=== PATIENT | male | born 1970 | race Caucasian/White ===

== ENCOUNTER → 2022-03-20 10:07 | Outpatient (BNVA) | payer SELFPAY | PROVIDERS: PCP Family Medicine; Visit Provider Family Medicine | DX: N20.0 Calculus of kidney (principal) | CPT/HCPCS: 74018 ==

== ENCOUNTER 2022-03-20 12:25 | Emergency (ER) | payer SELFPAY ==
[2022-03-20 13:11] VITALS: BP 175/95; PULSE 98; RESP 18; TEMP 36.4; O2SAT 97
[2022-03-20 14:49] LABS: Basophils # 0.1 10^3/uL (0.0-0.1); Basophils % 0.4 %; Eosinophils # 0.1 10^3/uL (0.0-0.8); Eosinophils % 0.8 %; Hematocrit 47.9 % (42.0-52.0); Lymphocytes # 1.1 10^3/uL (0.8-4.8); Mean Corpuscular HGB Conc 33.4 g/dL (30.0-36.0); Mean Corpuscular Volume 89.7 fl (80-94); Mean Platelet Volume 10.8 fL (7.4-10.4); Monocytes # 1.1 10^3/uL (0.2-0.9); Monocytes % 9.9 %; Neutrophils # 8.82 10^3/uL (1.8-7.7); Neutrophils % 78.5 %; Nucleated Red Blood Cells % 0 %; Platelet Count 208 10^3/cmm (130-400); Red Blood Count 5.34 10^6/uL (4.1-5.3); Red Cell Distribution Width 12.4 % (12.1-15.1); White Blood Count 11.3 10^3/uL (4.0-10.0)
[2022-03-20 15:13] VITALS: PULSE 90; O2SAT 96
--- NOTE | 2022-03-20 15:14 | PC.NURSE ---
WHILE WITH PT IN LOBBY PT IS IN NAD.
[2022-03-20 15:15] LABS: Alanine Aminotransferase 37 U/L (0-41); Albumin Level 4.5 g/dL (3.5-5.2); Alkaline Phosphatase 67 U/L (40-130); Anion Gap 18.4 (5-19); Aspartate Amino Transferase 21 U/L (0-40); Blood Urea Nitrogen 16 mg/dL (6-20); Calcium 9.4 mg/dL (8.5-10.5); Carbon Dioxide 23 mmol/L (22-29); Chloride 98 mmol/L (98-107); Globulin 3.5 g/dL (1.3-4.6); Glomerular Filtration Rate 58.2 mL/min (90-130); Glucose 101 mg/dL (65-115); Osmolality Calculated 281 mOsm/kg (285-295); Potassium 4.4 mmol/L (3.5-5.1); Sodium 135 mmol/L (136-145); Total Bilirubin 0.9 mg/dL (0.15-1.2)
[2022-03-20 16:19] VITALS: BP 128/89; PULSE 104; O2SAT 96
--- NOTE | 2022-03-20 16:19 | PC.NURSE ---
WHILE WITH PT IN LOBBY PT IS IN NAD.
--- NOTE | 2022-03-20 18:04 | CTR_ITS ---
PROCEDURE INFORMATION: Exam: CT Abdomen And Pelvis Without Contrast Exam date and time: 03/20/2022 6:10 PM Age: 51 years old Clinical indication: Condition or disease; Kidney or ureter condition; Calculus (stone) in kidney and hydronephrosis; Additional info: Kidney stone TECHNIQUE: Imaging protocol: Computed tomography of the abdomen and pelvis without contrast. Radiation optimization: All CT scans at this facility use at least one of these dose optimization techniques: automated exposure control; mA and/or kV adjustment per patient size (includes targeted exams where dose is matched to clinical indication); or iterative reconstruction. COMPARISON: CR XR KUB [id number] 03/20/2022 11:07 AM RADIATION DOSE METRICS: Total DLP (mGy-cm): 1278.23 FINDINGS: Limitations: The absence of intravenous contrast lessens the sensitivity of this study for solid organ abnormalities. Lungs: Lung bases are clear. Liver: There is no focal abnormality within the liver. Gallbladder and bile ducts: Multiple calcified gallstones are present. Pancreas: The pancreas is normal. Spleen: The spleen is normal. Adrenal glands: The adrenal glands are normal. Kidneys and ureters: The right kidney is normal. There is no evidence of right hydronephrosis. There is no stone in the right ureter. There is moderate left hydronephrosis. There is a large mass arising from the lower pole of the left kidney not fully characterized without IV contrast. This mass measures 6.8 x 5.0 x 6.5 cm and is worrisome for renal malignancy until proven otherwise. There is an approximately 14 mm peripherally calcified stone in the left renal pelvis. This measures 500-600 Hounsfield units and corresponds with the calcification described on preceding abdominal radiograph. There is higher density within lower pole calices and left renal pelvis which could represent hemorrhage or tumor. There is mild dilatation of left ureter which is of higher than normal density, likely representing hemorrhage. There is no stone in the left ureter. Stomach and bowel: There is no evidence of colitis/diverticulitis. There is no evidence of intestinal obstruction. Appendix: A normal appendix is identified. Intraperitoneal space: There is no evidence of free intraperitoneal fluid. Vasculature: There is no evidence of an abdominal aortic aneurysm. Lymph nodes: There is no evidence of lymphadenopathy. Urinary bladder: There is a Kowalski catheter within the urinary bladder. There is higher density material in the posterior aspect of the drained urinary bladder worrisome for hemorrhage. Reproductive: Unremarkable as visualized. Bones/joints: The lumbar spine demonstrates moderate degenerative changes at multiple levels. Soft tissues: There is small left inguinal hernia containing only fat. There is a large umbilical or periumbilical hernia containing fat. CT/CT abdomen pelvis wo con [id number] IMPRESSION: 1. Left renal mass worrisome for malignancy. 2. Left kidney stone 3. Findings worrisome for hematuria. 4. Cholelithiasis COMMENTS: Consistent with the [employer]'s Incidental Findings Committee white paper (J Am León Radiol 2018): Any incidental renal lesion less than 1 cm or classified as too small to characterize, or any incidental cystic renal lesion characterized as simple-appearing, is likely benign. No follow-up imaging is recommended for these lesions per consensus recommendations based on imaging criteria.
[2022-03-20 19:00] VITALS: BP 118/80; PULSE 68; RESP 16; O2SAT 94
--- NOTE | 2022-03-20 19:24 | ED_ITS ---
HPI - Male Genitourinary General: Chief complaint: Urogenital-Male Stated complaint: Dr in clinic for kidney stones Time Seen by Provider: 03/20/22 18:01 Source: patient Mode of arrival: ambulatory Limitations: no limitations History of Present Illness: 51-year-old male who states he was seen last week at [facility] informed that he had a kidney stone he had hematuria had a Kowalski placed he is he is followed up with his PCP today who had sent him up here as he is concerned of the size of the stone he states he had minimal pain he has been having some hematuria but denies passing any clots denies having his Kowalski clogged. He denies any vomiting or diarrhea. Associated symptoms: Reports hematuria; Deny nausea or vomiting Review of Systems Const: Denies: fever(s), chills, body aches or change in appetite Eyes: Denies: blurry vision or eye discomfort ENMT: Denies: throat pain or dental pain Card: Denies: chest pain Resp: Denies: dyspnea GI: Denies: abdominal pain, nausea, vomiting or diarrhea : Reports: flank pain and hematuria Musc: Denies: neck pain or back pain Skin/Breast: Denies: rash Neuro: Denies: headache(s) Psych: Denies: depression Bryan/Lymph: Denies: easy bruising All/Imm: Denies: urticaria PFSH ED PFSH: Medical History (Updated 03/20/22 @ 19:29 by Alice Johnson MD) No pertinent past medical history Social History (Updated 03/20/22 @ 19:29 by Alice Johnson MD) Substance/Drug Use: never Physical Exam Const: COMMON NORMALS: no acute distress, patient oriented x3 and healthy appearing HENMT: COMMON NORMALS: normocephalic and atraumatic HEAD & SCALP: normocephalic and atraumatic Eye: COMMON NORMALS: Equal, round and reactive pupils present and EOMs intact bilaterally PUPIL: Yes Equal, round and reactive pupils present Neck/C-Spine: COMMON NORMALS: full ROM and supple Chest: COMMONS NORMALS: normal inspection of the chest and normal palpation of entire chest wall Resp: COMMON NORMALS: normal respiratory effort, No retractions, No use of accessory muscles and clear to auscultation bilaterally AUSCULTATION: clear to auscultation bilaterally Cardio: COMMON NORMALS: regular rate, regular rhythm and No murmurs present (Cardio) RATE: regular rate RHYTHM: regular rhythm GI: COMMON NORMALS: Normal to inspection, nondistended, normoactive bowel sounds present, Soft to palpation, non-tender and no masses PALPATION: Yes Soft to palpation Extremity: COMMON NORMALS: normal to inspection and full ROM Neuro: COMMON NORMALS: patient oriented x3, moves all extremities and no focal motor deficits Psych: COMMON NORMALS: mental status grossly normal, Normal thought process present and cooperative THOUGHT PROCESS: Normal thought process present Skin: COMMON NORMALS: no rashes or lesions noted and no wounds GENERAL SKIN EXAM: no rashes or lesions noted Course Vital Signs: Vital signs: Vital Signs Temperature 97.6 F 03/20/22 13:11 Pulse Rate 104 H 03/20/22 16:19 Respiratory Rate 18 03/20/22 13:11 Blood Pressure 128/89 03/20/22 16:19 Pulse Oximetry 96 03/20/22 16:19 Oxygen Delivery Me thod 03/20/22 15:13 MDM - Male Medical Decision Making Patient presents here with hematuria likely from his renal mass his kidney stone not appear to be causing any problems he is currently pain-free has a catheter has been working appropriately I did speak to Dr. White patient has an appointment with a urologist in [place] on his hemoglobin here is normal I feel he stable for discharge he is to take pain meds he is to follow-up as scheduled on we will get him a disc of the CT scan done today. He is return if worsening. Lab Data 03/20/22 14:35 03/20/22 14:35 Radiology Impressions Abdomen/Pelvis CT 03/20/22 18:04 IMPRESSION: 1. Left renal mass worrisome for malignancy. 2. Left kidney stone 3. Findings worrisome for hematuria. 4. Cholelithiasis COMMENTS: Consistent with the [employer] [place]'s Incidental Findings Committee white paper (J Am León Radiol 2018): Any incidental renal lesion less than 1 cm or classified as too small to characterize, or any incidental cystic renal lesion characterized as simple-appearing, is likely benign. No follow-up imaging is recommended for these lesions per consensus recommendations based on imaging criteria. ADDENDUM: 03/20/22 [id number] Addendum: THIS REPORT CONTAINS FINDINGS THAT MAY BE CRITICAL TO PATIENT CARE. The findings were verbally communicated via telephone conference with ALICE JOHNSON at 6:44 PM [employer]ANSFORMER [employer] on 03/20/2022. The findings were acknowledged and understood. Laboratory Results WBC 11.3 10^3/uL (4.0-10.0) H 03/20/22 14:35 RBC 5.34 10^6/uL (4.1-5.3) H 03/20/22 14:35 Hgb 16.0 g/dL (11.7-16.6) 03/20/22 14:35 Hct 47.9 % (42.0-52.0) 03/20/22 14:35 MCV 89.7 fl (80-94) 03/20/22 14:35 MCH 30.0 pg (28.0-34.0) 03/20/22 14:35 MCHC 33.4 g/dL (30.0-36.0) 03/20/22 14:35 RDW 12.4 % (12.1-15.1) 03/20/22 14:35 Plt Count 208 10^3/cmm (130-400) 03/20/22 14:35 MPV 10.8 fL (7.4-10.4) H 03/20/22 14:35 Neut % (Auto) 78.5 % 03/20/22 14:35 Lymph % (Auto) 10.0 % 03/20/22 14:35 Rolette % (Auto) 9.9 % 03/20/22 14:35 Eos % (Auto) 0.8 % 03/20/22 14:35 Baso % (Auto) 0.4 % 03/20/22 14:35 Neut # (Auto) 8.82 10^3/uL (1.8-7.7) H 03/20/22 14:35 Lymph # (Auto) 1.1 10^3/uL (0.8-4.8) 03/20/22 14:35 Rolette # (Auto) 1.1 10^3/uL (0.2-0.9) H 03/20/22 14:35 Eos # (Auto) 0.1 10^3/uL (0.0-0.8) 03/20/22 14:35 Baso # (Auto) 0.1 10^3/uL (0.0-0.1) 03/20/22 14:35 Nucleated RBC % (auto) 0 % 03/20/22 14:35 Nucleated RBCs # 0.0 /100WBC 03/20/22 14:35 Sodium 135 mmol/L (136-145) L 03/20/22 14:35 Potassium 4.4 mmol/L (3.5-5.1) 03/20/22 14:35 Chloride 98 mmol/L (98-107) 03/20/22 14:35 Carbon Dioxide 23 mmol/L (22-29) 03/20/22 14:35 Anion Gap 18.4 (5-19) 03/20/22 14:35 BUN 16 mg/dL (6-20) 03/20/22 14:35 Creatinine 1.3 mg/dL (0.7-1.2) H 03/20/22 14:35 GFR Calculation 58.2 mL/min (90-130) L 03/20/22 14:35 Glucose 101 mg/dL (65-115) 03/20/22 14:35 Calculated Osmolality 281 mOsm/kg (285-295) L 03/20/22 14:35 Calcium 9.4 mg/dL (8.5-10.5) 03/20/22 14:35 Total Bilirubin 0.9 mg/dL (0.15-1.2) 03/20/22 14:35 AST 21 U/L (0-40) 03/20/22 14:35 ALT 37 U/L (0-41) 03/20/22 14:35 Alkaline Phosphatase 67 U/L (40-130) 03/20/22 14:35 Total Protein 8.0 g/dL (6.6-8.7) 03/20/22 14:35 Albumin 4.5 g/dL (3.5-5.2) 03/20/22 14:35 Globulin 3.5 g/dL (1.3-4.6) 03/20/22 14:35 Discharge Plan Discharge Patient Disposition: Home Clinical Impression: Hematuria, Kidney stone Condition: Stable Prescriptions: No Action ciprofloxacin HCl 500 mg tablet PO oxycodone-acetaminophen 5-325 mg tablet 1 tab PO Q4H PRN (Reason: pain) 5 Days Qty: 30 0RF ondansetron 4 mg tablet,disintegrating 4 mg PO TID PRN (Reason: nausea and vomiting) 5 Days Qty: 15 0RF Discharge Orders: Discharge ED (Routine); Ordered 03/20/22 Ordered By: Alice Johnson Referrals: Edison Campbell MD [Primary Care Provider] - Discharge Diet: Advance as tolerated Discharge Activity: Resume usual activity Patient Instructions: Kidney Stones (ED), Hematuria (ED) Coding Level of Care Code ED Technical Proposal Writer for Brent Mendez
[2022-03-20 19:42] VITALS: RESP 18
[2022-03-20] MEDS: ondansetron 2 mg/ML SDV 2 mL 4 MG IM (19:42)
[2022-03-20] MEDS: HYDROmorphone 1 mg/mL INJ 1 mL IM (19:42)
[2022-03-20] MEDS: HYDROcodone-acetaminophen 5-325 mg Tablet 2 TAB PO (19:43)
[2022-03-20 19:50] LABS: Blood Urine 3+ (Negative); Glucose Urine UA Norm (Normal); Ketones Urine 1+ (Negative); Protein Urine 2+ (Negative); Urine Appearance Hazy (CLEAR); Urine Color Red (Yellow); pH Urine 6.5 (5-7)
[2022-03-20 19:51] LABS: Add Urine Culture? No; Add Urine Microscopic? YES; Bacteria Urine TRACE /hpf; Bilirubin Urine Neg (Negative); Leukocyte Esterase Urine Negative (Negative); Nitrate Urine Negative (Negative); RBC Urine TOO NUMEROUS TO CNT /hpf (0-2); Urobilinogen Urine 1 mg/dL (Negative); WBC Urine 0-4 /hpf (0-5)
[2022-03-20 19:58] VITALS: BP 113/89; PULSE 60; RESP 16; O2SAT 94
== END 2022-03-20 19:58 | disposition home or self-care (01) ==
PROVIDERS: Emergency Medicine; Emergency Provider Emergency Medicine; PCP Family Medicine
DX: R31.9 Hematuria, unspecified (principal); N20.0 Calculus of kidney
CPT/HCPCS: 36415; 74176; 80053; 81001; 85025; 96372; 99285; J1170; J2405

== ENCOUNTER 2024-09-11 10:37 | Oncology outpatient (recurring) (ONCR) | payer OTHER, SELFPAY ==
[2024-09-11 11:50] LABS: Basophils # 0.1 10^3/uL (0.0-0.1); Basophils % 0.7 %; Eosinophils # 0.3 10^3/uL (0.0-0.8); Eosinophils % 2.9 %; Hematocrit 45.9 % (37-53); Lymphocytes # 1.3 10^3/uL (0.8-4.8); Lymphocytes % 13.6 %; Mean Corpuscular HGB Conc 32.9 g/dL (30-55); Mean Corpuscular Volume 91.3 fl (82-101); Mean Platelet Volume 10.1 fL (7.4-10.4); Monocytes # 0.8 10^3/uL (0.2-0.9); Monocytes % 8.4 %; Neutrophils # 6.81 10^3/uL (1.8-7.7); Nucleated Red Blood Cells % 0 %; Platelet Count 314 10^3/cmm (157-399); Red Blood Count 5.03 10^6/uL (3.85-5.65); Red Cell Distribution Width 13.2 % (12.1-15.1)
[2024-09-11 12:16] LABS: Alanine Aminotransferase 21 U/L (0-41); Albumin Level 4.4 g/dL (3.5-5.2); Alkaline Phosphatase 94 U/L (40-130); Anion Gap 16.5 (5-19); Aspartate Amino Transferase 16 U/L (0-40); Blood Urea Nitrogen 17 mg/dL (6-20); Calcium 9.7 mg/dL (8.5-10.5); Carbon Dioxide 24 mmol/L (22-29); Chloride 100 mmol/L (98-107); Globulin 3.6 g/dL (1.3-4.6); Glomerular Filtration Rate 63.1 mL/min (90-130); Glucose 94 mg/dL (65-115); Lactate Dehydrogenase 272 U/L (135-225); Osmolality Calculated 283 mOsm/kg (285-295); Potassium 4.5 mmol/L (3.5-5.1); Sodium 136 mmol/L (136-145); Total Bilirubin 0.5 mg/dL (0.15-1.2)
== END 2024-09-13 23:59 | disposition home or self-care (01) ==
PROVIDERS: PCP Family Medicine; Visit Provider Internal Medicine
DX: Z78.9 Other specified health status (principal)
CPT/HCPCS: 36415; 80053; 83615; 85025

== ENCOUNTER 2024-10-08 14:36 | Oncology outpatient (recurring) (ONCR) | payer OTHER, SELFPAY ==
--- NOTE | 2024-09-24 13:36 | XR_ITS ---
WS: [id number] DEXA (DUAL ENERGY X-RAY ABSORPTIOMETRY) Bone mineral density was performed using a [employer] machine. HISTORY: RENAL CELL CARCINOMA OF L KIDNEY COMPARISON: None available. Lumbar spine BMD (L1-L4): 1.090 g/cm2 T score: -1.1 Z score: -1.6 Total hip BMD: Left: 0.984 g/cm2. T score: -0.8 Z score: -0.9 Right: 0.958 g/cm2. T score: -1.0 Z score: -1.1 10 year probability of a major osteoporotic fracture is 4.6%. XR/XR DEXA axial skeleton* [id number] IMPRESSION: OSTEOPENIA. Male patient.
== END 2024-10-13 23:59 | disposition home or self-care (01) ==
PROVIDERS: PCP Family Medicine; Visit Provider Internal Medicine
DX: Z53.9 Procedure and treatment not carried out, unspecified reason (principal)
CPT/HCPCS: 77080

== ENCOUNTER 2024-10-13 08:25 | Outpatient (CLI) | payer OTHER, SELFPAY ==
--- NOTE | 2024-10-13 08:45 | NM_ITS ---
WS: [id number] NUCLEAR MEDICINE BONE SCAN Radiopharmaceutical: 24.9 Tc-99m MDP mCi IV Injection site: Antecubital Postinjection imaging delay: 1 hr CLINICAL INFORMATION: renal call carcinoma of left kidney COMPARISON: None. FINDINGS: Bone lesions: There are no osseous lesions suspicious for metastatic disease. Soft tissue contours: Normal. Kidneys: LEFT nephrectomy Other findings: Degenerative arthritis AC joints and both knees worst in the medial joint compartment. NM/NM bone scan whole body* [id number] IMPRESSION: No evidence of osseous metastatic disease.
== END 2024-10-13 08:26 | disposition home or self-care (01) ==
LOC: RAD 08:25
PROVIDERS: PCP Family Medicine; Visit Provider Internal Medicine
DX: C64.2 Malignant neoplasm of left kidney, except renal pelvis (principal); Z98.890 Other specified postprocedural states; M19.012 Primary osteoarthritis, left shoulder; M19.011 Primary osteoarthritis, right shoulder; M17.0 Bilateral primary osteoarthritis of knee
CPT/HCPCS: 78306; A9561

== ENCOUNTER 2024-11-20 07:50 | Oncology outpatient (recurring) (ONCR) | payer OTHER, SELFPAY ==
[2024-11-20 08:28] LABS: Hematocrit 47.9 % (37-53); Hemoglobin 15.80 g/dL (11.27-16.99); Mean Corpuscular HGB Conc 33.0 g/dL (30-55); Mean Corpuscular Hemoglobin 29.4 pg (27-33); Mean Corpuscular Volume 89.0 fl (82-101); Nucleated Red Blood Cells % 0 %; Platelet Count 204 10^3/cmm (157-399); Red Blood Count 5.38 10^6/uL (3.85-5.65); White Blood Count 6.18 10^3/uL (3.29-11.43)
[2024-11-20 08:46] LABS: Alanine Aminotransferase 23 U/L (0-41); Albumin Level 4.5 g/dL (3.5-5.2); Alkaline Phosphatase 87 U/L (40-130); Anion Gap 13.8 (5-19); Aspartate Amino Transferase 16 U/L (0-40); Blood Urea Nitrogen 20 mg/dL (6-20); Calcium 9.3 mg/dL (8.5-10.5); Carbon Dioxide 24 mmol/L (22-29); Chloride 103 mmol/L (98-107); Creatinine Clr Calc Pharmacy 97.5626; Globulin 3.2 g/dL (1.3-4.6); Glucose 95 mg/dL (65-115); Osmolality Calculated 284 mOsm/kg (285-295); Potassium 4.8 mmol/L (3.5-5.1); Sodium 136 mmol/L (136-145); Total Protein 7.7 g/dL (6.6-8.7)
[2024-11-20] MEDS: pembrolizumab 400 MG in sodium chloride 0.9% 250 ML 532 MG IV (10:46)
[2024-11-20 11:22] VITALS: BP 133/79; PULSE 45; TEMP 36.2; O2SAT 96
== END 2024-11-20 23:59 | disposition home or self-care (01) ==
PROVIDERS: Nurse Practitioner; PCP Family Medicine; Visit Provider Internal Medicine
DX: Z51.12 Encounter for antineoplastic immunotherapy (principal); C64.2 Malignant neoplasm of left kidney, except renal pelvis; Z79.899 Other long term (current) drug therapy
CPT/HCPCS: 80053; 85025; 96413; A4222; J7050; J9271

== ENCOUNTER 2024-11-25 07:07 | Oncology outpatient (recurring) (ONCR) | payer OTHER, SELFPAY ==
--- NOTE | 2024-11-25 08:00 | CT_ITS ---
WS: [id number] CT CHEST, ABDOMEN AND PELVIS WITH CONTRAST HISTORY: renal cell carcinoma of left kidney TECHNIQUE: Contiguous 5 mm axial imaging performed through the chest, abdomen and pelvis with IV contrast, oral contrast has been provided. Coronal and sagittal reformats chest. Coronal and sagittal reformats through the abdomen and pelvis. All CT scans at [facility] use at least one of these dose optimization techniques: automated exposure control; mA and/or kV adjustment per patient size (includes targeted exams where dose is matched to clinical indication); or iterative reconstruction. CONTRAST: Omnipaque 350; 100 mL IV. DLP: 1645.28 mGy.cm COMPARISON: 03/20/[address]: Lungs are clear. No pulmonary nodule or pneumonia. No pericardial or pleural effusions. Mild cardiomegaly. Mild atherosclerosis aorta. Normal size pulmonary artery. No mediastinal or hilar adenopathy. No destructive bone lesions. Abdomen CT: Status post LEFT nephrectomy. Soft tissue stranding within the fat in the renal bed. Soft tissue extends posteriorly to the paraspinal muscles. There is an additional nodule which is lobulated in the LEFT renal bed measuring 2.3 x 3.2 cm. This nodule was not present on the the most recent CT from 03/20/2022. LEFT adrenal gland is not definitely visualized. There are surgical clips in the adrenal bed. RIGHT kidney is normal. No mass or obstruction. Normal liver and spleen. Contracted gallbladder with cholelithiasis. No adjacent inflammation. Normal RIGHT adrenal gland. Normal pancreas. No GI tract obstruction. No ascites. No additional lymph nodes. Postsurgical changes along the anterior abdominal wall. There is a large hernia containing fat. Orifice of the hernia is 4.[address]: No free fluid in the pelvis. No adenopathy. Minimally distended urinary bladder. Prostate gland is enlarged and heterogeneous. Fat-containing LEFT inguinal canal. No destructive bone lesions. CT/CT chest abdpel w/*[id number] IMPRESSION: 1. Status post LEFT nephrectomy. 2. Soft tissue stranding in the LEFT nephrectomy bed with soft tissue extensio n to the paraspinal soft tissues. This may all be normal postoperative changes due to the recent surgery. Anticipate serial CT evaluation for resolution. 3. Lobulated soft tissue mass in the renal bed measures 2.3 x 3.2 cm. Recurren t metastatic disease needs to be considered. No prior recent CT exams for jeramie rison. The LEFT adrenal gland is not identified. This could potentially be a re solving postoperative hematoma/seroma in the renal bed. 4. Normal RIGHT kidney. 5. Large fat-containing umbilical hernia. 6. Cholelithiasis without acute cholecystitis. 7. No metastatic disease to the lungs. 8. No ascites.
[2024-11-25] MEDS: iohexol 350 mg/mL 500 mL Btl (per mL) PO (08:27)
[2024-11-25] MEDS: iohexol 350 mg/mL 500 mL Btl (per mL) IV (08:28)
== END 2024-12-14 23:59 | disposition home or self-care (01) ==
PROVIDERS: Visit Provider Internal Medicine
DX: C64.2 Malignant neoplasm of left kidney, except renal pelvis (principal); Z90.5 Acquired absence of kidney; N28.9 Disorder of kidney and ureter, unspecified; K42.9 Umbilical hernia without obstruction or gangrene; Z90.49 Acquired absence of other specified parts of digestive tract; I51.7 Cardiomegaly; I70.0 Atherosclerosis of aorta; N40.0 Benign prostatic hyperplasia without lower urinary tract symptoms; R93.5 Abnormal findings on diagnostic imaging of other abdominal regions, including retroperitoneum
CPT/HCPCS: 71260; 74177

== ENCOUNTER 2025-01-01 08:00 | Oncology outpatient (recurring) (ONCR) | payer OTHER, SELFPAY ==
[2025-01-01 08:17] LABS: Hematocrit 47.2 % (37-53); Hemoglobin 15.50 g/dL (11.27-16.99); Mean Corpuscular HGB Conc 32.8 g/dL (30-55); Mean Corpuscular Hemoglobin 28.3 pg (27-33); Mean Corpuscular Volume 86.1 fl (82-101); Nucleated Red Blood Cells % 0 %; Platelet Count 216 10^3/cmm (157-399); Red Blood Count 5.48 10^6/uL (3.85-5.65); White Blood Count 7.72 10^3/uL (3.29-11.43)
[2025-01-01 08:45] LABS: Alanine Aminotransferase 21 U/L (0-41); Albumin Level 4.5 g/dL (3.5-5.2); Alkaline Phosphatase 88 U/L (40-130); Anion Gap 18.7 (5-19); Aspartate Amino Transferase 17 U/L (0-40); Blood Urea Nitrogen 24 mg/dL (6-20); Calcium 9.8 mg/dL (8.5-10.5); Carbon Dioxide 22 mmol/L (22-29); Chloride 103 mmol/L (98-107); Creatinine Clr Calc Pharmacy 83.4705; Globulin 3.5 g/dL (1.3-4.6); Glucose 108 mg/dL (65-115); Osmolality Calculated 293 mOsm/kg (285-295); Potassium 4.7 mmol/L (3.5-5.1); Sodium 139 mmol/L (136-145); Thyroid Stimulating Hormone 0.06 uIU/mL (0.27-4.20); Total Protein 8.0 g/dL (6.6-8.7)
[2025-01-01] MEDS: pembrolizumab 400 MG in sodium chloride 0.9% 250 ML 532 MG IV (09:58)
[2025-01-01 10:43] VITALS: BP 136/83; PULSE 46; RESP 17; TEMP 36.2; O2SAT 97
== END 2025-01-13 23:59 | disposition home or self-care (01) ==
PROVIDERS: Nurse Practitioner; Visit Provider Internal Medicine
DX: Z53.9 Procedure and treatment not carried out, unspecified reason; Z51.12 Encounter for antineoplastic immunotherapy; C64.2 Malignant neoplasm of left kidney, except renal pelvis
CPT/HCPCS: 80053; 84443; 85025; 96413; J7050; J9271

== ENCOUNTER → 2025-01-20 09:58 | Outpatient (BNVA) | payer OTHER, SELFPAY | PROVIDERS: PCP Nurse Practitioner Family; Visit Provider Internal Medicine | DX: E05.90 Thyrotoxicosis, unspecified without thyrotoxic crisis or storm (principal); C64.2 Malignant neoplasm of left kidney, except renal pelvis; E11.9 Type 2 diabetes mellitus without complications | CPT/HCPCS: 80053; 82533; 83036; 83516; 84439; 84443; 84480; 84681; 86337; 86341; 86376; 86800 ==

== ENCOUNTER 2025-02-12 07:53 | Oncology outpatient (recurring) (ONCR) | payer OTHER, SELFPAY ==
[2025-02-12 08:19] LABS: Hematocrit 41.5 % (37-53); Hemoglobin 14.30 g/dL (11.27-16.99); Mean Corpuscular HGB Conc 34.5 g/dL (30-55); Mean Corpuscular Hemoglobin 28.9 pg (27-33); Mean Corpuscular Volume 83.8 fl (82-101); Nucleated Red Blood Cells % 0 %; Platelet Count 178 10^3/cmm (157-399); Red Blood Count 4.95 10^6/uL (3.85-5.65); White Blood Count 9.30 10^3/uL (3.29-11.43)
[2025-02-12 08:35] LABS: Alanine Aminotransferase 24 U/L (0-41); Albumin Level 4.3 g/dL (3.5-5.2); Alkaline Phosphatase 106 U/L (40-130); Anion Gap 20.4 (5-19); Aspartate Amino Transferase 17 U/L (0-40); Blood Urea Nitrogen 29 mg/dL (6-20); Calcium 9.6 mg/dL (8.5-10.5); Carbon Dioxide 13 mmol/L (22-29); Chloride 106 mmol/L (98-107); Creatinine Clr Calc Pharmacy 37.2417; Globulin 3.5 g/dL (1.3-4.6); Glucose 94 mg/dL (65-115); Osmolality Calculated 288 mOsm/kg (285-295); Potassium 3.4 mmol/L (3.5-5.1); Sodium 136 mmol/L (136-145); Total Protein 7.8 g/dL (6.6-8.7)
[2025-02-12 09:26] LABS: Thyroid Stimulating Hormone 1.61 uIU/mL (0.27-4.20)
--- NOTE | 2025-02-12 16:00 | PC.NURSE ---
Patient taken to Emergency Department after office visit. Vascular access still in place.
== END 2025-02-13 23:59 | disposition home or self-care (01) ==
PROVIDERS: Internal Medicine; Nurse Practitioner; PCP Nurse Practitioner Family; Visit Provider Internal Medicine
DX: Z53.9 Procedure and treatment not carried out, unspecified reason; C64.2 Malignant neoplasm of left kidney, except renal pelvis; Z79.899 Other long term (current) drug therapy
CPT/HCPCS: 80053; 83615; 84443; 85025

== ENCOUNTER 2025-02-12 09:35 | Inpatient (IN) | payer OTHER, SELFPAY ==
--- OUTSIDE RECORDS SUMMARY | 2025-02-10 09:13 | XMS_ITS | Encounter Summary ---
Author Organization [facility] Address [address] [place] [address] Care Team Providers Care Instructional Design Consultant Name Role Phone Unavailable Primary Care Provider Unavailabl e Reason for Visit * Reason Comments syncope Encounter Details Date Type Department Care Team (Late st Contact Info) Description 02/10/2025 9:13 AM CDT - 02/10/2025 2:41 PM CDT Emergency [facility] Emergency Medicine [address] [place] [address] Tony De Paz MD [address] [place] [phone] Vasovagal syncope (Primary Dx); Hypokalemia; Acute renal failure superimposed on chronic kidney disease, unspecified acute renal failure type, unspecified CKD stage Discharge Disposition: Home or Self Care Social History Tobacco Use Types Packs/Day Years Used Date Smoking Tobacco: Former Cigarettes Smokeless Tobacco: Never Alcohol Use Standard Drinks/Week Comments Yes 1 (1 standard drink = 0.6 oz pur e alcohol) rare Food Insecurity Answer Date Recorded Do you find you are eating l ess than you should because you can t pay for food? No 02/10/2025 Transportation Needs Answer Date Record ed Have you gone without health care because you didn t have a way to get there? Or worry about transportation for future doctor visits, coal picker medication, etc.? No 2024 Housing Stability Answer Date Recorded Do you worry you won t have a steady place to sleep or struggle to pay rent or mortgage? No 02/10/2025 Utility Needs Answer Date Recorded Do you have difficulty payin g for utility costs (electric, water or gas bills)? No 02/10/2025 Medication Needs Answer Date Recorded Have you skipped taking medi cation due to cost or worry you can t afford new medications? No 02/10/2025 Feeling Safe Answer Date Recorded Are you in a relationship wi th someone who hurts you emotionally and/or physically? 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 Gender Identity Not on file Sexual Orientation Not on file documented as of this encounter Last Filed Vital Signs Vital Sign Reading Time Taken Comments Blood Pressure 109/71 02/10/2025 2:00 PM CDT Pulse 69 02/10/2025 2:00 PM CDT Temperature 37.1 C (98.7 F) 02/10/2025 9:13 AM CDT Respiratory Rate 12 02/10/2025 2:00 PM CDT Oxygen Saturation 99% 02/10/2025 2:00 PM CDT Inhaled Oxygen Concentration - - Weight 114.1 kg (251 lb 9.6 oz) 02/10/2025 9:13 AM CDT Height 185.4 cm (6' 1 ) 02/10/2025 9:13 AM CDT Body Mass Index 33.19 02/10/2025 9:13 AM CDT documented in this encounter Discharge Instructions * Attachments The following attachments cannot be sent through Care Everywhere. * Hypokalemia (Malagasy) * Renal Disease: Chronic (Malagasy) * Acute Kidney Injury (Malagasy) * Vasovagal Syncope (Malagasy) documented in this encounter Medications at Time of Discharge potassium CHLORIDE (KLOR-CON) 10 mEq Extended Release tablet Take 1 Tablet (10 mEq) by mouth daily. 30 Tablet ondansetron (ZOFRAN) 8 mg Tablet take 1 tablet by mouth every 6 hours as needed for nausea and vomiting 5 prochlorperazine maleate (COMPAZINE) 10 mg tablet TAKE 1 TABLET BY MOUTH every 6 HOURS Needed FOR nausea AND vomiting; MAY alternate WITH ondanestron FOR nausea OR MAY TAKE alone.] 5 famotidine (PEPCID) 40 mg tabletIndications:Hia aury hernia with gastroesophageal reflux Take 1 Tablet (40 mg) by mouth 2 times daily. 60 Tablet 5 HYDROcodone-acetamino phen (NORCO) 7.5-325 mg TabletIndications:Lef t renal mass Take 1 Tablet by mouth every 6 hours as needed for Pain, Moderate. Max Daily Amount: 4 Tablets 15 Tablet 5 docusate sodium (COLACE) 100 mg capsule Take 1 Capsule (100 mg) by mouth 2 times daily as needed for Constipation. 30 Capsule 1 5 acetaminophen (TYLENOL) 325 mg tablet Take 325 mg by mouth. ibuprofen (MOTRIN) 800 mg tablet Take 800 mg by mouth every 6 hours as needed for Pain, Mild. omeprazole (PriLOSEC) 40 mg Capsule, Delayed Release(E.C.)Indicati ons:Hiatal hernia Take 1 Capsule (40 mg) by mouth daily. 100 Capsule 3 5 ondansetron (ZOFRAN ODT) 4 mg Tablet, Rapid Dissolve Place 1 Tablet (4 mg) under tongue every 6 hours as needed for Nausea/Emesis. Dissolve tablet on top of tongue, then swallow with saliva. 10 Tablet 2 documented as of this encounter ED Notes * Tomi Damon RN - 02/10/2025 9:19 AM CDT Pt reports to the ed with co 2 syncopal episodes. Pt reports that he was on the toilet when he passed out and fell forward. Pt reports hitting his head and has reddening on his forehead. Pt denies pain on the forehead. Pt also reports having upper back pain. Pt reports LOC and denies the use of blood thinners. Pt is a/o x4 with even and unlabored breathing. Pt denies any CP,SOB, or ABD pain at this time. * Tony De Paz MD - 02/10/2025 9:06 AM CDT HISTORY OF PRESENT ILLNESS The patient is a 54-year-old male who was on the toilet today and had a syncopal episode. He has had this before he said it was when he was in the hospital in [place] back in August when he had a nephrectomy for renal cell carcinoma. He comes in today for further evaluation and treatment. He said when he fell off the stool he bumped his head on the right frontal region but has no lacerations andno bleeding. He does have a little bit of nausea. 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 used: No Arrived by: Private vehicle Arrived from: Home syncope Episode history: Single Most recent episode: Today Duration: 10 seconds Timing: Rare Progression: Resolved Chronicity: New Context: bowel movement and sitting down Witnessed: yes Relieved by: Sitting up Worsened by: Posture Ineffective treatments: None tried Associated symptoms: nausea Nausea: Severity: Mild Onset quality: Sudden Duration: 1 hour Timing: Constant Progression: Improving PAST MEDICAL HISTORY REVIEWED MEDICAL: Patient has a past medical history of Broken bones, Kidney calculus, Patient denies medical problems, and Patient denies relevant medical history. SURGICAL: Patient has a past surgical history that includes knee surgery; thumb arthroscopy; pr cysto/ureterow/lithotripsy &indwell stent insrt (Left, 03/28/2022); pr cysto/uretero w/lithotripsy &indwell stent insrt (Left, 04/01/2022); pr cystourethroscopy w/rmvl ureteral calculus (Left, 04/01/2022); pr cysto w/insert ureteral stent (Left, 07/01/2024); cystoscopy w/ ureteroscopy (07/01/2024); surgical other; and pr laparoscopy radical nephrectomy (Left, 08/25/2024). ALLERGIES Patient has no known allergies. PHYSICAL EXAM INITIAL VS BP: (!) 124/97 (02/10/25 09), Heart Rate: 78 bpm (02/10/25912), Resp: 14 (02/10/25912), Pulse: 79 (10924), Temp: 98.7 ??F (37.1 ??C) (02/10/25912), Temp src: Tympanic (02/10/25912),SpO2: 98 % (02/10/25912), Height: 6' 1 (185.4 cm) (02/10/25912), Weight: 114.1 kg (251 lb 9.6 oz) (02/10/25912), BMI (Calculated): (!) 33.19 (02/10/25912) No LMP for male patient. Physical Exam Vitals and nursing note reviewed. Constitutional: Appearance: Normal appearance. HENT: Head: Normocephalic and atraumatic. Right Ear: External ear normal. Left Ear: External ear normal. Nose: Nose normal. Mouth/Throat: Mouth: Mucous membranes are moist. Pharynx: Oropharynx is clear. Eyes: Extraocular Movements: Extraocular movements intact. Pupils: Pupils are equal, round, and reactive to light. Cardiovascular: Rate and Rhythm: Normal rate and regular rhythm. Pulmonary: Effort: Pulmonary effort is normal. No respiratory distress. Breath sounds: Normal breath sounds. Abdominal: General: Bowel sounds are normal. Palpations: Abdomen is soft. Musculoskeletal: General: Normal range of motion. Cervical back: Normal range of motion and neck supple. No rigidity or tenderness. Skin: General: Skin is warm and dry. Neurological: General: No focal deficit present. Mental Status: He is alert and oriented to person, place, and time. Mental status is at baseline. Psychiatric: Mood and Affect: Mood normal. Behavior: Behavior normal. Thought Content: Thought content normal. Judgment: Judgment normal. DIAGNOSTICS LAB: CBC WITH DIFFERENTIAL - Abnormal Result Value WBC 10.5 (*) RBC 5.17 HEMOGLOBIN 15.2 HEMATOCRIT 41.9 MCV 81.0 MCH 29.4 MCHC 36.3 RDW 13.6 RDW-STDEV 39.4 PLATELETS 183 MPV 10.8 NEUTROPHILS 67 LYMPHOCYTES 15 (*) MONOCYTES 13 (*) EOSINOPHILS 4 BASOPHILS 1 IMMATURE GRANULOCYTES 0 NEUTROPHIL ABSOLUTE 7.02 (*) LYMPHOCYTE ABSOLUTE 1.60 MONOCYTE ABSOLUTE 1.32 (*) EOSINOPHIL ABSOLUTE 0.43 BASOPHILS ABSOLUTE 0.08 IMMATURE GRANULOCYTES ABSOLUTE 0.04 COMPREHENSIVE METABOLIC PANEL - Abnormal SODIUM 135 (*) POTASSIUM 3.2 (*) CHLORIDE 109 (*) CO2 14 (*) CALCIUM 9.9 BUN 36 (*) CREATININE 3.30 (*) GLUCOSE 107 (*) TOTAL PROTEIN 8.3 ALBUMIN 4.5 BILIRUBIN TOTAL 0.6 ALKALINE PHOSPHATASE 101 AST 23 ALT 39 GFR 21 (*) ANION GAP 12 URINALYSIS WITH REFLEX MICROSCOPIC - Abnormal COLOR UA Yellow CLARITY UA Clear SPECIFIC GRAVITY UA 1.015 PH UA 7.0 LEUKOCYTE ESTERASE UA Negative NITRITE UA Negative PROTEIN UA 2+ (*) GLUCOSE UA Negative KETONES UA Negative UROBILINOGEN UA 0.2 BILIRUBIN UA Negative BLOOD UA Trace (*) BASIC METABOLIC PANEL - Abnormal SODIUM 136 POTASSIUM 3.6 CHLORIDE 111 (*) CO2 15 (*) CALCIUM 9.2 BUN 34 (*) CREATININE 2.99 (*) GLUCOSE 92 GFR 24 (*) ANION GAP 10 MAGNESIUM LEVEL - Normal MAGNESIUM 2.2 URINALYSIS MICROSCOPY ONLY - Normal WBC UA 0-2 RBC UA 0-2 BACTERIA UA Negative EPITHELIAL CELLS, URINE 0-5 HYALINE CAST 0-2 RADIOLOGY: CT HEAD WO CONTRAST Radiologist Impression IMPRESSION: No evidence of an acute intracranial process. EKG: PROCEDURES Procedures MEDICAL DECISION MAKING AND PLAN OF CARE Medical Decision Making Amount and/or Complexity of Data Reviewed Labs: ordered. Radiology: ordered. Risk Prescription drug management. Clinical Scoring & Consults Medications Administered During the ED Stay from 02/10/2025 0906 to 02/10/2025 1436 Date/Time Order Dose Route Action 02/10/2025 1040 CDT sodium chloride 0.9 % bolus solution 1,000 mL 0 mL IV Stopped 02/10/2025 0940 CDT sodium chloride 0.9 % bolus solution 1,000 mL 1,000 mL IV New Bag 02/10/2025 1011 CDT potassium CHLORIDE (K-DUR,KLOR-CON M20) SR tablet 20 mEq 20 mEq Oral Given 02/10/2025 1117 CDT potassium CHLORIDE 10 mEq in lactated ringers 1,000 mL infusion -- IV New Bag . New Prescriptions for this Encounter POTASSIUM CHLORIDE (KLOR-CON) 10 MEQ EXTENDED RELEASE TABLET Take 1 Tablet (10 mEq) by mouth daily. LAST VS BP: 109/71 (02/10/25 1400), Heart Rate: 71 bpm (02/10/25 1400), Resp: 12 (02/10/25 1400), Pulse: 69(02/10/25 1400), Temp: 98.7 ??F (37.1 ??C) (02/10/25 09), Temp src: Tympanic (02/10/25912), SpO2: 99 % (02/10/25 1400) CLINICAL IMPRESSION Diagnoses Diagnosis Comment Added By Time Added Vasovagal syncope [R55] Tony De Paz MD 02/10/2025 10:30 AM Hypokalemia [E87.6] Tony De Paz MD 02/10/2025 10:30 AM Acute renal failure superimposed on chronic kidney disease, unspecified acute renal failure type, unspecified CKD stage [N17.9, N18.9] Tony De Paz MD 02/10/2025 10:33 AM DISPOSITION, EDUCATION AND MEDICATION RECONCILIATION Medications reconciled. See after visit summary for patient education on discharged patients. 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 [address] documented as of this encounter Procedures Procedure Name Priority Date/Time Associated Diagnosis Comments BASIC METABOLIC PANEL Stat 02/10/2025 2:10 PM CDT URINALYSIS MICROSCOPY ONLY Stat 02/10/2025 1:54 PM CDT URINALYSIS W/REFLEX MICROSCOPIC Stat 02/10/2025 1:[address] HEAD WO CONTRAST Stat 02/10/2025 9 :57 AM CDT CBC WITH DIFFERENTIAL Stat 02/10/2025 9:34 AM CDT MAGNESIUM LEVEL Stat 02/10/2025 9:34 AM CDT COMPREHENSIVE METABOLIC PANEL Stat 02/10/2025 9:34 AM CDT documented in this encounter Results * (ABNORMAL) BASIC METABOLIC PANEL (02/10/2025 2:10 PM CDT) SODIUM 136 136 - 145 mmol/L 02/10/2025 2:28 PM CDT [facility] POTASSIUM 3.6 3.5 - 5.1 mmol/L 02/10[facility]2025 2:[facility] 111(H) 98 - 107 mmol/L 02/10/2025 2:28 PM T [facility] CO2 15(L) 22 - 29 mmol/L 02/10/2025 2:28 PM [facility] CALCIUM 9.2 8.6 - 10.0 mg/dL 02/10/2025 2:28 PM [facility] BUN 34(H) 6 - 20 mg/dL 02/10/2025 2:28 PM [facility] CREATININE 2.99(H) 0.67 - 1.17 mg/dL 02/10/2025 2:28 PM [facility] GLUCOSE 92 74 - 99 mg/dL 02/10/2025 2:28 PM [facility] GFR 24(L) >=60 mL/min/1.7 3 sq meter 02/10/2025 2:28 PM T [facility] Comment:eGFR calculated with 2021 CKD-EPI equation. Vegetarian diet, extremely high or low muscle mass, and may affect results. Cystatin C with Glomerular Filtration Rate is a suitable alternative for these patients. ANION GAP 10 5 - 20 mmol/L 02/10/2025 2:28 PM CDT [facility] Blood BLOOD SPECIMEN / Unknown Collection / Unknown 02/10/2025 2:10 PM CDT 02/10/2025 2:10 PM CDT us Tony De Paz MD CHEMISTRY ORDERABLES Final Result Performing Organization Address City/[facility]/ZIP Co de Phone Number [facility] CLIA # [id number] [address] [place] [phone] * URINALYSIS MICROSCOPY ONLY (02/10/2025 1:54 PM CDT) WBC UA 0-2 0 - 2 /hpf 02/10/2025 2:15 PM CDT [facility] RBC UA 0-2 0 - 2 /hpf 02/10/2025 2:15 PM CDT [facility] BACTERIA UA Negative Negative /hpf 02/10/2025 2:15 PM CDT [facility] EPITHELIAL CELLS, URINE 0-5 0 - 5 /hpf 02/10/2025 2:15 PM CDT [facility] HYALINE CAST 0-2 None Seen, 0-2 /lpf 02/10/2025 2:15 PM CDT [facility] Urine URINE SPECIMEN OBTAINED BY CLEAN CATCH PROCEDURE / Unknown Collection / Unknown 02/10/2025 1:54 PM CDT 02/10/2025 1:58 PM CDT us Tony De Paz MD URINE ORDERABLES Final Res ult Performing Organization Address City/[facility]/ZIP Co de Phone Number [facility] CLIA # [id number] [address] [place] [phone] * (ABNORMAL) URINALYSIS WITH REFLEX MICROSCOPIC (02/10/2025 1:54 PM CDT) COLOR UA Yellow Pale to Dark Yellow 02/10/2025 2:15 PM CDT [facility] CLARITY UA Clear Clear 02/10/2025 2:15 PM CDT [facility] SPECIFIC GRAVITY UA 1.015 1.003 - 1.035 02/10/2025 2:15 PM CDT [facility] PH UA 7.0 5.0 - 8.0 02/10/2025 2:15 PM CDT [facility] LEUKOCYTE ESTERASE UA Negative Negative 02/10/2025 2:15 PM CDT [facility] NITRITE UA Negative Negative 02/10/2025 2:15 PM CDT [facility] PROTEIN UA 2+(A) Negative 02/10/2025 2:15 PM CDT [facility] GLUCOSE UA Negative Negative 02/10/2025 2:15 PM CDT [facility] KETONES UA Negative Negative 02/10/2025 2:15 PM CDT [facility] UROBILINOGEN UA 0.2 <2.0 mg/dL 2:15 PM CDT [facility] BILIRUBIN UA Negative Negative 02/10/2025 2:15 PM CDT [facility] BLOOD UA Trace(A) Negative 02/10/2025 2:15 PM CDT [facility] Urine URINE SPECIMEN OBTAINED BY CLEAN CATCH PROCEDURE / Unknown Collection / Unknown 02/10/2025 1:54 PM CDT 02/10/2025 1:58 PM CDT us Tony De Paz MD URINE ORDERABLES Final Res ult [facility] CLIA # [id number] [address] [place] [id number] * CT HEAD WO CONTRAST (02/10/2025 9:57 AM CDT) Anatomical Region Laterality Modality Head Computed Tomogra phy 02/10/2025 9:34 AM CDT Impressions 02/10/2025 10:11 AM CDT IMPRESSION: No evidence of an acute intracranial process. Narrative 02/10/2025 10:11 AM CDT EXAM: CT HEAD WO CONTRAST DATE/TIME OF EXAM: 02/10/2025 9:57 AM REASON FOR STUDY: Syncope/presyncope, cerebrovascular cause suspected DIAGNOSIS: See Reason for Exam COMPARISON: None Available TECHNIQUE: CT head performed without contrast. FINDINGS: No evidence of an acute territorial infarct, parenchymal hemorrhage, hydrocephalus or abnormal extra-axial fluid collection. No midline shift. Basilar cisterns remain patent. No mastoid effusion. No paranasal sinus fluid level. No calvarial fracture. Procedure Note Everett Blount MD - 02/10/2025 EXAM: CT HEAD WO CONTRAST DATE/TIME OF EXAM: 02/10/2025 9:57 AM REASON FOR STUDY: Syncope/presyncope, cerebrovascular cause suspected DIAGNOSIS: See Reason for Exam COMPARISON: None Available TECHNIQUE: CT head performed without contrast. FINDINGS: No evidence of an acute territorial infarct, parenchymal hemorrhage, hydrocephalus or abnormal extra-axial fluid collection. No midline shift. Basilar cisterns remain patent. No mastoid effusion. No paranasal sinus fluid level. No calvarial fracture. IMPRESSION: No evidence of an acute intracranial process. Tony De Paz MD CT ORDERABLES Final Resu lt * MAGNESIUM LEVEL (02/10/2025 9:34 AM CDT) MAGNESIUM 2.2 1.6 - 2.6 mg/dL 02/10/2025 10:20 AM CDT [facility] Blood BLOOD SPECIMEN / Unknown Collection / Unknown 02/10/2025 9:34 AM CDT 02/10/2025 9:39 AM CDT Tony De Paz MD CHEMISTRY ORDERABLES Final Result [facility] CLIA # [id number] [address] [place] [phone] * (ABNORMAL) COMPREHENSIVE METABOLIC PANEL (02/10/2025 9:34 AM CDT) SODIUM 135(L) 136 - 145 mmol/L 02/10/2025 9:59 AM [facility] POTASSIUM 3.2(L) 3.5 - 5.1 mmol/L 02/10/2025 9:59 AM [facility] CHLORIDE 109(H) 98 - 107 mmol/L 02/10/2025 9:59 AM [facility] CO2 14(L) 22 - 29 mmol/L 02/10/2025 9:59 AM [facility] CALCIUM 9.9 8.6 - 10.0 mg/dL 02/10/2025 9:59 AM [facility] BUN 36(H) 6 - 20 mg/dL 02/10/2025 9:59 AM [facility] CREATININE 3.30(H) 0.67 - 1.17 mg/dL 02/10/2025 9:59 AM [facility] GLUCOSE 107(H) 74 - 99 mg/dL 02/10/2025 9:59 AM [facility] TOTAL PROTEIN 8.3 6.6 - 8.7 g/dL 02/10/2025 9:59 AM [facility] ALBUMIN 4.5 3.5 - 5.2 g/dL 02/10/2025 9:59 AM [facility] BILIRUBIN TOTAL 0.6 0.0 - 1.2 mg/dL 02/10/2025 9:59 AM [facility] ALKALINE PHOSPHATASE 101 40 - 129 U/L 02/10/2025 9:59 AM [facility] AST 23 0 - 50 U/L 02/10/2025 9:59 AM [facility] ALT 39 0 - 50 U/L 02/10/2025 9:59 AM [facility] GFR 21(L) >=60 mL/min/1.7 3 sq meter 02/10/2025 9:59 AM [facility] Comment:eGFR calculated with 2020 CKD-EPI equation. Vegetarian diet, extremely high or low muscle mass, and may affect results. Cystatin C with Glomerular Filtration Rate is a suitable alternative for these patients. ANION GAP 12 5 - 20 mmol/L 02/10/2025 9:59 AM [facility] Blood BLOOD SPECIMEN / Unknown Collection / Unknown 02/10/2025 9:34 AM CDT 02/10/2025 9:39 AM CDT Tony De Paz MD CHEMISTRY ORDERABLES Final Result [facility] CLIA # [id number] [address] [place] [phone] * (ABNORMAL) CBC WITH DIFFERENTIAL (02/10/2025 9:34 AM CDT) WBC 10.5(H) 4.2 - 9.1 K/uL 02/10/2025 9:42 AM [facility] RBC 5.17 4.63 - 6.08 M/uL 02/10/2025 9:42 AM [facility] HEMOGLOBIN 15.2 13.7 - 17.5 g/dL 02/10/2025 9:42 AM [facility] HEMATOCRIT 41.9 40.1 - 51.0 % 02/10/2025 9:42 AM [facility] MCV 81.0 79.0 - 92.2 fL 02/10/2025 9:42 AM [facility] MCH 29.4 25.7 - 32.2 pg 02/10/2025 9:42 AM [facility] MCHC 36.3 32.3 - 36.5 g/dL 02/10/2025 9:42 AM [facility] RDW 13.6 11.0 - 14.5 % 02/10/2025 9:42 AM [facility] RDW-STDEV 39.4 36.9 - 56.9 fL 02/10/2025 9:42 AM [facility] PLATELETS 183 130 - 400 K/uL 02/10/2025 9:42 AM [facility] MPV 10.8 10.0 - 14.8 fL 02/10/2025 9:42 AM T [facility] NEUTROPHILS 67 34 - 68 % 02/10/2025 9:42 AM T [facility] LYMPHOCYTES 15(L) 22 - 53 % 02/10/2025 9:42 AM [facility] MONOCYTES 13(H) 5 - 12 % 02/10/2025 9:42 AM [facility] EOSINOPHILS 4 1 - 7 % 02/10/2025 9:42 AM [facility] BASOPHILS 1 0 - 1 % 02/10/2025 9:42 AM [facility] IMMATURE GRANULOCYTES 0 % 02/10/2025 9:42 AM [facility] NEUTROPHIL ABSOLUTE 7.02(H) 1.78 - 5.38 K/uL 02/10/2025 9:42 AM [facility] LYMPHOCYTE ABSOLUTE 1.60 1.20 - 3.40 K/uL 02/10/2025 9:42 AM [facility] MONOCYTE ABSOLUTE 1.32(H) 0.30 - 0.82 K/uL 02/10/2025 9:42 AM [facility] EOSINOPHIL ABSOLUTE 0.43 0.04 - 0.54 K/uL 02/10/2025 9:42 AM [facility] BASOPHILS ABSOLUTE 0.08 0.01 - 0.08 K/uL 02/10/2025 9:42 AM [facility] IMMATURE GRANULOCYTES ABSOLUTE 0.04 K/uL 02/10/2025 9:42 AM [facility] Blood BLOOD SPECIMEN / Unknown Collection / Unknown 02/10/2025 9:34 AM CDT 02/10/2025 9:39 AM CDT Tony De Paz MD HEMATOLOGY ORDERABLES Jaylene alvarez Result [facility] CLIA # [id number] [address] [place] [id number] documented in this encounter Visit Diagnoses Diagnosis Vasovagal syncope- Primary Syncope and collapse Hypokalemia Hypopotassemia Acute renal failure superimposed on chronic kidney disease, unspecified acute renal failure type, unspecified CKD stage documented in this encounter Administered Medications Inactive Administered Medications - up to 3 most recent administrations Medication Order MAR Action Action Date Dose Rate Site potassium CHLORIDE (K-DUR,KLOR-CON M20) SR tablet 20 mEq 20 mEq, Oral, ONE TIME ONLY, 1 dose, On Sun02/10/25 at 1015, Routine Given 02/10/2025 10:11 AM CDT 20 mEq potassium CHLORIDE 10 mEq in lactated ringers 1,000 mL infusion IV, at 500 mL/hr, ONE TIME ONLY, 1 dose, On Sun02/10/25 at 1045, Routine New Bag 02/10/2025 11:17 AM CDT 500 mL/hr sodium chloride 0.9 % bolus solution 1,000 mL 1,000 mL, IV, ONE TIME ONLY, 1 dose, On Sun02/10/25 at 0945, at 999 mL/hr, Administer over 60 Minutes, Routine New Bag 02/10/2025 9:40 AM CDT 1,000 mL 999 mL/hr documented in this encounter Active and Recently Administered Medications Times are shown in CDT. Scheduled Medication Order 02/08/2025 02/09/2025 02/10/2025 potassium CHLORIDE (K-DUR,KLOR-CON M20) SR tablet 20 mEq (COMPLETED) 20 mEq, Oral, ONE TIME ONLY, 1 dose, On Sun02/10/25 at 1015, Routine 1011 (Given - Provid er: Tomi Damon RN) potassium CHLORIDE 10 mEq in lactated ringers 1,000 mL infusion (COMPLETED) IV, at 500 mL/hr, ONE TIME ONLY, 1 dose, On Sun02/10/25 at 1045, Routine 1117 (New Bag - Prov ider: Tomi Damon RN) sodium chloride 0.9 % bolus solution 1,000 mL (COMPLETED) 1,000 mL, IV, ONE TIME ONLY, 1 dose, On Sun02/10/25 at 0945, at 999 mL/hr, Administer over 60 Minutes, Routine 0940 (New Bag - Prov ider: Tomi Damon RN)1040 (Stopped - Provider: Tomi Damon RN) documented in this encounter
--- OUTSIDE RECORDS SUMMARY | 2025-02-10 09:13 | XMS_ITS | Encounter Summary ---
Author Organization [facility] Address 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 * Hypokalemia (Kenyan) * Renal Disease: Chronic (Kenyan) * Acute Kidney Injury (Kenyan) * Vasovagal Syncope ([place]yan) documented in this encounter Medications at Time [...] when he was in the hospital in [place] back in August when he had a nephrectomy for renal cell carcinoma. He comes in today for further evaluation and treatment. He said when he fell off the stool he bumped his head on the right frontal region but has no lacerations andno bleeding. He does have a little bit of nausea. 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 Office Visit [facility] Urology [address] [phone] [facility] [address] [phone] 06/24/2025 8:00 AM CDT Office Visit [facility] [address] [place] [address] Nicole Cook FNP [address] [facility] [place] [address] documented as of this encounter Procedures [...] - 145 mmol/L 02/10/2025 2:28 PM CDT [facility] POTASSIUM 3.6 3.5 - 5.1 mmol/L 02/[facility](H) 98 - 107 mmol/L 02/10/2025 2:28 PM T [facility] CO2 15(L) 22 - 29 mmol/L 02/10/2025 2:28 PM [facility] CALCIUM 9.2 8.6 - 10.0 mg/dL 02/10/2025 2:28 PM [facility] BUN 34(H) 6 - 20 mg/dL 02/10/2025 2:28 PM [facility] CREATININE 2.99(H) 0.67 - 1.17 mg/dL 02/10/2025 2:28 PM [facility] GLUCOSE 92 74 - 99 mg/dL 02/10/2025 2:28 PM [facility] GFR 24(L) >=60 mL/min/1.7 3 sq meter 02/10/2025 2:28 PM T [facility] Comment:eGFR calculated with 2021 CKD-EPI equation. Vegetarian diet, extremely high or low muscle mass, and may affect results. Cystatin C with Glomerular Filtration Rate is a suitable alternative for these patients. ANION GAP 10 5 - 20 mmol/L 02/10/2025 2:28 PM CDT [facility] Blood BLOOD SPECIMEN / Unknown Collection / Unknown 02/10/2025 2:10 PM CDT 02/10/2025 2:10 PM CDT us Tony De Paz MD CHEMISTRY ORDERABLES Final Result Performing Organization Address City/[facility]/ZIP Co de Phone Number [facility] CLIA # [id number] [address] [place] [address] * URINALYSIS MICROSCOPY ONLY (02/10/2025 1:54 PM CDT) WBC UA 0-2 0 - 2 /hpf 02/10/2025 2:15 PM CDT [facility] RBC UA 0-2 0 - 2 /hpf 02/10/2025 2:15 PM CDT [facility] BACTERIA UA Negative Negative /hpf 02/10/2025 2:15 PM CDT [facility] EPITHELIAL CELLS, URINE 0-5 0 - 5 /hpf 02/10/2025 2:15 PM CDT [facility] HYALINE CAST 0-2 None Seen, 0-2 /lpf 02/10/2025 2:15 PM CDT [facility] Urine URINE SPECIMEN OBTAINED BY CLEAN CATCH PROCEDURE / Unknown Collection / Unknown 02/10/2025 1:54 PM CDT 02/10/2025 1:58 PM CDT us Tony De Paz MD URINE ORDERABLES Final Res ult Performing Organization Address City/[facility]/ZIP Co de Phone Number [facility] CLIA # [id number] [address] [place] [address] * (ABNORMAL) URINALYSIS WITH REFLEX MICROSCOPIC (02/10/2025 1:54 PM CDT) COLOR UA Yellow Pale to Dark Yellow 02/10/2025 2:15 PM CDT [facility] CLARITY UA Clear Clear 02/10/2025 2:15 PM CDT [facility] SPECIFIC GRAVITY UA 1.015 1.003 - 1.035 02/10/2025 2:15 PM CDT [facility] PH UA 7.0 5.0 - 8.0 02/10/2025 2:15 PM CDT [facility] LEUKOCYTE ESTERASE UA Negative Negative 02/10/2025 2:15 PM CDT [facility] NITRITE UA Negative Negative 02/10/2025 2:15 PM CDT [facility] PROTEIN UA 2+(A) Negative 02/10/2025 2:15 PM CDT [facility] GLUCOSE UA Negative Negative 02/10/2025 2:15 PM CDT [facility] KETONES UA Negative Negative 02/10/2025 2:15 PM CDT [facility] UROBILINOGEN UA 0.2 <2.0 mg/dL 2:15 PM CDT [facility] BILIRUBIN UA Negative Negative 02/10/2025 2:15 PM CDT [facility] BLOOD UA Trace(A) Negative 02/10/2025 2:15 PM CDT [facility] Urine URINE SPECIMEN OBTAINED BY CLEAN CATCH PROCEDURE / Unknown Collection / Unknown 02/10/2025 1:54 PM CDT 02/10/2025 1:58 PM CDT us Tony De Paz MD URINE ORDERABLES Final Res ult [facility] CLIA # [id number] [address] [place] [address] * CT HEAD WO CONTRAST (02/10/2025 9:57 [...] - 2.6 mg/dL 02/10/2025 10:20 AM CDT [facility] Blood BLOOD SPECIMEN / Unknown Collection / Unknown 02/10/2025 9:34 AM CDT 02/10/2025 9:39 AM CDT Tony De Paz MD CHEMISTRY ORDERABLES Final Result [facility] CLIA # [id number] [address] [place] [id number] * (ABNORMAL) COMPREHENSIVE METABOLIC PANEL (02/10/2025 9:34 AM CDT) SODIUM 135(L) 136 - 145 mmol/L 02/10/2025 9:59 AM [facility] POTASSIUM 3.2(L) 3.5 - 5.1 mmol/L 02/10/2025 9:59 AM [facility] CHLORIDE 109(H) 98 - 107 mmol/L 02/10/2025 9:59 AM [facility] CO2 14(L) 22 - 29 mmol/L 02/10/2025 9:59 AM [facility] CALCIUM 9.9 8.6 - 10.0 mg/dL 02/10/2025 9:59 AM [facility] BUN 36(H) 6 - 20 mg/dL 02/10/2025 9:59 AM [facility] CREATININE 3.30(H) 0.67 - 1.17 mg/dL 02/10/2025 9:59 AM [facility] GLUCOSE 107(H) 74 - 99 mg/dL 02/10/2025 9:59 AM [facility] TOTAL PROTEIN 8.3 6.6 - 8.7 g/dL 02/10/2025 9:59 AM [facility] ALBUMIN 4.5 3.5 - 5.2 g/dL 02/10/2025 9:59 AM [facility] BILIRUBIN TOTAL 0.6 0.0 - 1.2 mg/dL 02/10/2025 9:59 AM [facility] ALKALINE PHOSPHATASE 101 40 - 129 U/L 02/10/2025 9:59 AM [facility] AST 23 0 - 50 U/L 02/10/2025 9:59 AM [facility] ALT 39 0 - 50 U/L 02/10/2025 9:59 AM [facility] GFR 21(L) >=60 mL/min/1.7 3 sq meter 02/10/2025 9:59 AM [facility] Comment:eGFR calculated with 2020 CKD-EPI equation. Vegetarian diet, extremely high or low muscle mass, and may affect results. Cystatin C with Glomerular Filtration Rate is a suitable alternative for these patients. ANION GAP 12 5 - 20 mmol/L 02/10/2025 9:59 AM [facility] Blood BLOOD SPECIMEN / Unknown Collection / Unknown 02/10/2025 9:34 AM CDT 02/10/2025 9:39 AM CDT Tony De Paz MD CHEMISTRY ORDERABLES Final Result [facility] CLIA # [id number] [address] [place] [address] * (ABNORMAL) CBC WITH DIFFERENTIAL (02/10/2025 9:34 AM CDT) WBC 10.5(H) 4.2 - 9.1 K/uL 02/10/2025 9:42 AM [facility] RBC 5.17 4.63 - 6.08 M/uL 02/10/2025 9:42 AM [facility] HEMOGLOBIN 15.2 13.7 - 17.5 g/dL 02/10/2025 9:42 AM [facility] HEMATOCRIT 41.9 40.1 - 51.0 % 02/10/2025 9:42 AM [facility] MCV 81.0 79.0 - 92.2 fL 02/10/2025 9:42 AM [facility] MCH 29.4 25.7 - 32.2 pg 02/10/2025 9:42 AM [facility] MCHC 36.3 32.3 - 36.5 g/dL 02/10/2025 9:42 AM [facility] RDW 13.6 11.0 - 14.5 % 02/10/2025 9:42 AM [facility] RDW-STDEV 39.4 36.9 - 56.9 fL 02/10/2025 9:42 AM [facility] PLATELETS 183 130 - 400 K/uL 02/10/2025 9:42 AM [facility] MPV 10.8 10.0 - 14.8 fL 02/10/2025 9:42 AM T [facility] NEUTROPHILS 67 34 - 68 % 02/10/2025 9:42 AM T [facility] LYMPHOCYTES 15(L) 22 - 53 % 02/10/2025 9:42 AM [facility] MONOCYTES 13(H) 5 - 12 % 02/10/2025 9:42 AM [facility] EOSINOPHILS 4 1 - 7 % 02/10/2025 9:42 AM [facility] BASOPHILS 1 0 - 1 % 02/10/2025 9:42 AM [facility] IMMATURE GRANULOCYTES 0 % 02/10/2025 9:42 AM [facility] NEUTROPHIL ABSOLUTE 7.02(H) 1.78 - 5.38 K/uL 02/10/2025 9:42 AM [facility] LYMPHOCYTE ABSOLUTE 1.60 1.20 - 3.40 K/uL 02/10/2025 9:42 AM [facility] MONOCYTE ABSOLUTE 1.32(H) 0.30 - 0.82 K/uL 02/10/2025 9:42 AM [facility] EOSINOPHIL ABSOLUTE 0.43 0.04 - 0.54 K/uL 02/10/2025 9:42 AM [facility] BASOPHILS ABSOLUTE 0.08 0.01 - 0.08 K/uL 02/10/2025 9:42 AM [facility] IMMATURE GRANULOCYTES ABSOLUTE 0.04 K/uL 02/10/2025 9:42 AM [facility] Blood BLOOD SPECIMEN / Unknown Collection / Unknown 02/10/2025 9:34 AM CDT 02/10/2025 9:39 AM CDT Tony De Paz MD HEMATOLOGY ORDERABLES Jaylene alvarez Result [facility] CLIA # [id number] [address] [place] [address] documented in this encounter Visit Diagnoses [...]
[2025-02-12 09:37] VITALS: BP 127/85; PULSE 85; TEMP 37.1; O2SAT 98; BMI 33.2
--- OUTSIDE RECORDS SUMMARY | 2025-02-12 10:04 | XMS_ITS | Clinical Summary ---
Author Organization [facility] Address [address] Reina: Epic Prelude ADT KLARISSA GAMA [address] Care Team Providers Care Carpentry Professional Name Role Phone Unavailable Primary Care Provider Unavailabl e Allergies No known active allergies Medications ondansetron (ZOFRAN ODT) 4 mg Tablet, Rapid Dissolve Place 1 Tablet (4 mg) under tongue every 6 hours as needed for Nausea/Emesis. Dissolve tablet on top of tongue, then swallow with saliva. 10 Tablet 03/17/20 22 Active Additional Information Patient not taking.Reported on 02/10/2025 acetaminophen (TYLENOL) 325 mg tablet Take 325 mg by mouth. Active ibuprofen (MOTRIN) 800 mg tablet Take 800 mg by mouth every 6 hours as needed for Pain, Mild. Active omeprazole (PriLOSEC) 40 mg Capsule, Delayed Release(E.C.)Indicat ions:Hiatal hernia Take 1 Capsule (40 mg) by mouth daily. 100 Capsule 3 06/25/19 25 Active HYDROcodone-acetamin ophen (NORCO) 7.5-325 mg TabletIndications:Le ft renal mass Take 1 Tablet by mouth every 6 hours as needed for Pain, Moderate. Max Daily Amount: 4 Tablets 15 Tablet 08/28/19 25 Active Additional Information Patient not taking.Reported on 02/10/2025 docusate sodium (COLACE) 100 mg capsule Take 1 Capsule (100 mg) by mouth 2 times daily as needed for Constipation. 30 Capsule 1 08/28/19 25 Active Additional Information Patient not taking.Reported on 02/10/2025 famotidine (PEPCID) 40 mg tabletIndications:Hi atal hernia with gastroesophageal reflux Take 1 Tablet (40 mg) by mouth 2 times daily. 60 Tablet 12/26/19 Active ondansetron (ZOFRAN) 8 mg Tablet take 1 tablet by mouth every 6 hours as needed for nausea and vomiting 01/17/20 25 Active prochlorperazine maleate (COMPAZINE) 10 mg tablet TAKE 1 TABLET BY MOUTH every 6 HOURS Needed FOR nausea AND vomiting; MAY alternate WITH ondanestron FOR nausea OR MAY TAKE alone.] 01/17/20 25 Active potassium CHLORIDE (KLOR-CON) 10 mEq Extended Release tablet Take 1 Tablet (10 mEq) by mouth daily. 30 Tablet 02/11/20 25 Active Active Problems Problem Noted Date Diagnosed Date Hiatal hernia with gastroesophageal reflux 12/25 Renal cell carcinoma of left kidney 12/25/2024 Umbilical hernia without obstruction or gangrene 12/25/2024 Left renal mass 08/26/2024 Encounters Date Type Department Care Team Description 02/10/2025 9:13 AM CDT - 02/10/2025 2:41 PM CDT Emergency [facility] Emergency Medicine [address] [place] [phone] Tony De Paz MD Vasovagal syncope (Primary Dx); Hypokalemia; Acute renal failure superimposed on chronic kidney disease, unspecified acute renal failure type, unspecified CKD stage Discharge Disposition: Home or Self Care 02/10/2025 Travel 02/04/2025 External Device Data ST[facility] ABSTRACTION Provider, Abstract 01/30/2025 Results Follow-Up [address] [phone] Nicole Cook FNP CBC WITH DIFFERENTIAL, COMPREHENSIVE METABOLIC PANEL 01/30/2025 Results Follow-Up [address] [phone] Nicole Cook FNP US RENAL AND BLADDER 01/29/2025 11:36 AM CDT - 01/29/2025 11:59 PM CDT Hospital Encounter [facility] [address] [place] [phone] Nicole Cook FNP Discharge Disposition: Home or Self Care 01/28/2025 12:48 PM CDT - 01/28/2025 11:59 PM CDT Hospital Encounter [facility] [place] [address] [place] [address] Nicole Cook, ROSE Malignant neoplasm of left kidney, except renal pelvis (CMS/HCC) Discharge Disposition: Home or Self Care 01/28/2025 11:20 AM CDT Office Visit [address] [facility] [address] Nicole Cook FNP Renal cell carcinoma of left kidney (CMS/HCC) (Primary Dx) 01/28/2025 Lab Requisition [facility] [place] [address] [place] [address] Nicole Cook FNP Malignant neoplasm of left kidney, except renal pelvis (CMS/HCC) 01/20/2025 External Device Data STL ABSTRACTION Provider, Abstract 01/03/2025 Results Follow-Up [address] [place] [address] Nicole Cook FNP CBC WITH DIFFERENTIAL, COMPREHENSIVE METABOLIC PANEL 01/01/2025 Medication Prior Auth Encounter [facility] Prescription Management Dept [facility] [address] Delfina Barboza, PHARMACIST 12/31/2024 External Device Data ST[facility] ABSTRACTION Provider, Abstract 12/30/2024 External Device Data ST[facility] ABSTRACTION Provider, Abstract 12/30/2024 External Device Data [facility] ABSTRACTION Provider, Abstract 12/25/2024 8:40 AM CDT Office Visit [address] [place] [address] Nicole Cook FNP Hiatal hernia with gastroesophageal reflux (Primary Dx); Renal cell carcinoma of left kidney (CMS/HCC); Umbilical hernia without obstruction or gangrene 12/16/2024 External Device Data STL ABSTRACTION Provider, Abstract 12/10/2024 External Device Data STL ABSTRACTION Provider, Abstract 12/02/2024 External Device Data STL ABSTRACTION Provider, Abstract 12/02/2024 External Device Data STL ABSTRACTION Provider, Abstract 11/19/2024 External Device Data STL ABSTRACTION Provider, Abstract from Last 3 Months Family History Medical History Relation Name Comments Healthy Father Healthy Mother Relation Name Status Comments Father Alive Mother Alive Social History Tobacco Use Types Packs/Day Years Used Date Smoking Tobacco: Former Cigarettes Smokeless Tobacco: Never Tobacco Cessation:Counseling Given: No Alcohol Use Standard Drinks/Week Comments Yes 1 [...] worry about transportation for future doctor visits, picker medication, etc.? 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 Gender Identity Not on file Sexual Orientation Not on file Last Filed Vital Signs Vital Sign Reading [...] Mass Index 33.19 02/10/2025 9:13 AM CDT Plan of Treatment Upcoming Encounters Date Type Department Care Team (Late st Contact Info) Description 04/07/2025 2:30 PM BAGGAGE HANDLING SUPERVISOR Office Visit [facility] Urology [address] [phone] Aurora Solis [address] [phone] 06/24/2025 8:00 AM CDT Office Visit [facility] Family Medicine [place] [address] [place] [address] [place] [phone] Nicole Cook FNP [address] [facility] [place] [phone] Health Maintenance Due Date Last Done Comments Pre-Diabetes and Diabetes Screening 1970 DTAP/TDAP/TD VACCINES (1 - Tdap) 1989 HEPATITIS B VACCINES (1 of 3 - 19+ 3-dose series) 1989 COLORECTAL SCREENING 2015 Colorectal Cancer Screening 2015 FIT-DNA Q 3 years 2015 FIT/FOBT Q 1 year 2015 Flex Sig/CT Colonography Q 5 years 2015 ZOSTER VACCINE (1 of 2) 2020 INFLUENZA VACCINE (#1) 2024 COVID-19 Vaccine ( - season) 12/15/202406/2020, 06/26/2020 Abdominal Aortic Aneurysm (AAA) Screening Completed 03/16/2022 Medical Devices Implanted Type [employer] Device Identifier Shelf Expiration Date Model / Serial / Lot Clip Hemolok Lrg [id number] - Csc - [id number] Implanted:Qty: 1 on 08/25/2024 by Gilberto Claros MD at [facility] Clip Left: Abdomen TELEFLEX- WECK CLOSURE SYS [id number] 04/21/2029 [id number] / / [id number] Clip Hemolok Lrg [id number] - Csc - [id number] Implanted:Qty: 1 on 08/25/2024 by Gilberto Claros MD at [facility] Clip Left: Abdomen TELEFLEX- WECK CL[employer]URE SYS [id number] 02/28/2029 [id number] / / [id number] Clip Hemolok Lrg [id number] - Csc - [id number] Implanted:Qty: 1 on 08/25/2024 by Gilberto Claros MD at [facility] Clip Left: Abdomen TELEFLEX- WECK CLOSURE SYS [id number] 04/21/2029 [id number] / / [id number] Agent Hemostat Surgicel 3x4in 1942s - [id number] Implanted:Qty: 1 on 08/25/2024 by Gilberto Claros MD at [facility] Hemostatic Left: Abdomen J[employer]J- [employer] [id number] 02/13/2029 1943S / / [id number] Hemostatic Surgicel 6x9in 1945 - [id number] Implanted:Qty: 1 on 08/25/2024 by Gilberto Claros MD at [facility] Hemostatic Left: Abdomen J&J- [employer] [id number] 02/13/2029 1946 / / [id number] Stent Contour [id number] - [id number] Implanted:Qty: 1 on 07/01/2024 by Nicolette Wynne MD at [facility] Stent Left: Bladder [employer] UROLOGY/MOBILITY ARCHITECT MANAGER [id number] 09/19/2026 [id number] / / [id number] Explanted Type [employer] Device Identifier Shelf Expiration Date Model / Serial / Lot Stent Contour [id number] - [id number] Implanted:Qty: 1 on 03/28/2022 by Nicolette Wynne MD at [facility] Explanted:Qty: 1 on 04/01/2022 by Nicolette Wynne MD at [facility] Stent Left: Ureter [employer] UROLOGY/MOBILITY ARCHITECT MANAGER [id number] 10/05/2024 [id number] / / [id number] Procedures Procedure Name Priority Date/Time Associated Diagnosis Comments BASIC METABOLIC PANEL Stat 02/10/2025 2:10 PM CDT URINALYSIS MICROSCOPY ONLY Stat 02/10/2025 1:54 PM CDT URINALYSIS W/REFLEX MICROSCOPIC Stat 02/10/2025 1:[address] HEAD WO CONTRAST Stat 02/10/2025 9 :57 AM CDT MAGNESIUM LEVEL Stat 02/10/2025 9:34 AM CDT COMPREHENSIVE METABOLIC PANEL Stat 02/10/2025 9:34 AM CDT CBC WITH DIFFERENTIAL Stat 02/10/2025 9:34 AM CDT US RENAL AND BLADDER Stat 01/29/2025 12:20 PM CDT Renal cell carcinoma of left kidney (CMS/HCC) COMPREHENSIVE METABOLIC PANEL Stat 01/28/2025 12:57 PM CDT Malignant neoplasm of left kidney, except renal pelvis (CMS/HCC) CBC WITH DIFFERENTIAL Stat 01/28/2025 12:57 PM CDT Malignant neoplasm of left kidney, except renal pelvis (CMS/HCC) COMPREHENSIVE METABOLIC PANEL Routine 12/25/2024 9:36 AM CDT Hiatal hernia with gastroesophageal reflux Renal cell carcinoma of left kidney (CMS/HCC) CBC WITH DIFFERENTIAL Routine 12/25/2024 9:36 AM CDT Hiatal hernia with gastroesophageal reflux Renal cell carcinoma of left kidney (CMS/HCC) CT ABDOMEN PELVIS WO CONTRAST Stat 03/16/2022 9:30 PM BAGGAGE HANDLING SUPERVISOR from Last 3 Months or Most Recently Relevant to Health Maintenance Results * (ABNORMAL) BASIC METABOLIC PANEL (02/10/2025 2:10 PM CDT) SODIUM 136 136 - 145 mmol/L 02/10/2025 2:28 PM [facility] POTASSIUM 3.6 3.5 - 5.1 mmol/L 02/10/2025 2:28 PM [facility] CHLORIDE 111(H) 98 - 107 mmol/L 02/10/2025 2:28 PM [facility] CO2 15(L) 22 - 29 mmol/L 02/10/2025 2:28 PM [facility] CALCIUM 9.2 8.6 - 10.0 mg/dL 02/10/2025 2:28 PM [facility] BUN 34(H) 6 - 20 mg/dL 02/10/2025 2:28 PM [facility] CREATININE 2.99(H) 0.67 - 1.17 mg/dL 02/10/2025 2:28 PM [facility] GLUCOSE 92 74 - 99 mg/dL 02/10/2025 2:28 PM [facility] GFR 24(L) >=60 mL/min/1.7 3 sq meter 02/10/2025 2:28 PM [facility] Comment:eGFR calculated with 2020 CKD-EPI equation. Vegetarian diet, extremely high or low muscle mass, and may affect results. Cystatin C with Glomerular Filtration Rate is a suitable alternative for these patients. ANION GAP 10 5 - 20 mmol/L 02/10/2025 2:28 PM [facility] Blood BLOOD SPECIMEN / Unknown Collection / Unknown 02/10/2025 2:10 PM CDT 02/10/2025 2:10 PM CDT us Tony De Paz MD CHEMISTRY ORDERABLES Final Result Performing Organization Address [facility]/ZIP Co de Phone Number [facility] CLIA # [id number] [address] [place] [phone] * URINALYSIS MICROSCOPY ONLY (02/10/2025 1:54 PM CDT) WBC UA 0-2 0 - 2 /hpf 02/10/2025 2:15 PM CDT [facility] RBC UA 0-2 0 - 2 /hpf 02/10/2025 2:15 PM CDT [facility] BACTERIA UA Negative Negative /hpf 02/10/2025 2:15 PM CDT [facility] EPITHELIAL CELLS, URINE 0-5 0 - 5 /hpf 02/10/2025 2:15 PM CDT [facility] HYALINE CAST 0-2 None Seen, 0-2 /lpf 02/10/2025 2:15 PM CDT [facility] Urine URINE SPECIMEN OBTAINED BY CLEAN CATCH PROCEDURE / Unknown Collection / Unknown 02/10/2025 1:54 PM CDT 02/10/2025 1:58 PM CDT us Tony De Paz MD URINE ORDERABLES Final Res ult Performing Organization Address City/[facility]/ZIP Co de Phone Number [facility] CLIA # [id number] [address] [place] [address] * (ABNORMAL) URINALYSIS WITH REFLEX MICROSCOPIC (02/10/2025 1:54 PM CDT) COLOR UA Yellow Pale to Dark Yellow 02/10/2025 2:15 PM CDT [facility] CLARITY UA Clear Clear 02/10/2025 2:15 PM CDT [facility] SPECIFIC GRAVITY UA 1.015 1.003 - 1.035 02/10/2025 2:15 PM CDT [facility] PH UA 7.0 5.0 - 8.0 02/10/2025 2:15 PM CDT [facility] LEUKOCYTE ESTERASE UA Negative Negative 02/10/2025 2:15 PM CDT [facility] NITRITE UA Negative Negative 02/10/2025 2:15 PM CDT [facility] PROTEIN UA 2+(A) Negative 02/10/2025 2:15 PM CDT [facility] GLUCOSE UA Negative Negative 02/10/2025 2:15 PM CDT [facility] KETONES UA Negative Negative 02/10/2025 2:15 PM CDT [facility] UROBILINOGEN UA 0.2 <2.0 mg/dL 2:15 PM CDT [facility] BILIRUBIN UA Negative Negative 02/10/2025 2:15 PM CDT [facility] BLOOD UA Trace(A) Negative 02/10/2025 2:15 PM CDT [facility] Urine URINE SPECIMEN OBTAINED BY CLEAN CATCH PROCEDURE / Unknown Collection / Unknown 02/10/2025 1:54 PM CDT 02/10/2025 1:58 PM CDT Tony De Paz MD URINE ORDERABLES Final Res ult [facility] [id number] [address] [place] [phone] * CT HEAD WO CONTRAST (02/10/2025 9:57 [...] MD CT ORDERABLES Final Resu lt * (ABNORMAL) CBC WITH DIFFERENTIAL (02/10/2025 9:34 AM CDT) Only the most recent of3 resultswithin the time period is included. WBC 10.5(H) 4.2 - 9.1 K/uL 02/10/2025 9:42 AM [facility] RBC 5.17 4.63 - 6.08 M/uL 02/10/2025 9:42 AM [facility] HEMOGLOBIN 15.2 13.7 - 17.5 g/dL 02/10/2025 9:42 AM [facility] HEMATOCRIT 41.9 40.1 - 51.0 % 02/10/2025 9:42 AM [facility] MCV 81.0 79.0 - 92.2 fL 02/10/2025 9:42 AM [facility] MCH 29.4 25.7 - 32.2 pg 02/10/2025 9:42 AM [facility] MCHC 36.3 32.3 - 36.5 g/dL 02/10/2025 9:42 AM [facility] RDW 13.6 11.0 - 14.5 % 02/10/2025 9:42 AM [facility] RDW-STDEV 39.4 36.9 - 56.9 fL 02/10/2025 9:42 AM [facility] PLATELETS 183 130 - 400 K/uL 02/10/2025 9:42 AM [facility] MPV 10.8 10.0 - 14.8 fL 02/10/2025 9:42 AM [facility] NEUTROPHILS 67 34 - 68 % 02/10/2025 9:42 AM [facility] LYMPHOCYTES 15(L) 22 - 53 % 02/10/2025 9:42 AM [facility] MONOCYTES 13(H) 5 - 12 % 02/10/2025 9:42 AM [facility] EOSINOPHILS 4 1 - 7 % 02/10/2025 9:42 AM [facility] BASOPHILS 1 0 - 1 % 02/10/2025 9:42 AM [facility] IMMATURE GRANULOCYTES 0 % 02/10/2025 9:42 AM [facility] NEUTROPHIL ABSOLUTE 7.02(H) 1.78 - 5.38 K/uL 02/10/2025 9:42 AM [facility] LYMPHOCYTE ABSOLUTE 1.60 1.20 - 3.40 K/uL 02/10/2025 9:42 AM [facility] MONOCYTE ABSOLUTE 1.32(H) 0.30 - 0.82 K/uL 02/10/2025 9:42 AM [facility] EOSINOPHIL ABSOLUTE 0.43 0.04 - 0.54 K/uL 02/10/2025 9:42 AM [facility] BASOPHILS ABSOLUTE 0.08 0.01 - 0.08 K/uL 02/10/2025 9:42 AM [facility] IMMATURE GRANULOCYTES ABSOLUTE 0.04 K/uL 02/10/2025 9:42 AM [facility] Blood BLOOD SPECIMEN / Unknown Collection / Unknown 02/10/2025 9:34 AM CDT 02/10/2025 9:39 AM CDT us Tony De Paz MD HEMATOLOGY ORDERABLES Jaylene l Result Performing Organization Address City/[facility]/ZIP Co de Phone Number [facility] CLIA # [id number] [address] [place] [phone] * MAGNESIUM LEVEL (02/10/2025 9:34 AM CDT) MAGNESIUM 2.2 1.6 - 2.6 mg/dL 02/10/2025 10:20 AM CDT [facility] Blood BLOOD SPECIMEN / Unknown Collection / Unknown 02/10/2025 9:34 AM CDT 02/10/2025 9:39 AM CDT Tony De Paz MD CHEMISTRY ORDERABLES Final Result Performing Organization Address [facility] Co de Phone Number [facility] [id number] [address] [place] [phone] * (ABNORMAL) COMPREHENSIVE METABOLIC PANEL (02/10/2025 9:34 AM CDT) Only the most recent of3 resultswithin the time period is included. SODIUM 135(L) 136 - 145 mmol/L 02/10/2025 9:59 AM [facility] POTASSIUM 3.2(L) 3.5 - 5.1 mmol/L 02/10/2025 9:59 AM [facility] CHLORIDE 109(H) 98 - 107 mmol/L 02/10/2025 9:59 AM [facility] CO2 14(L) 22 - 29 mmol/L 02/10/2025 9:59 AM [facility] CALCIUM 9.9 8.6 - 10.0 mg/dL 02/10/2025 9:59 AM [facility] BUN 36(H) 6 - 20 mg/dL 02/10/2025 9:59 AM [facility] CREATININE 3.30(H) 0.67 - 1.17 mg/dL 02/10/2025 9:59 AM [facility] GLUCOSE 107(H) 74 - 99 mg/dL 02/10/2025 9:59 AM [facility] TOTAL PROTEIN 8.3 6.6 - 8.7 g/dL 02/10/2025 9:59 AM [facility] ALBUMIN 4.5 3.5 - 5.2 g/dL 02/10/2025 9:59 AM [facility] BILIRUBIN TOTAL 0.6 0.0 - 1.2 mg/dL 02/10/2025 9:59 AM [facility] ALKALINE PHOSPHATASE 101 40 - 129 U/L 02/10/2025 9:59 AM [facility] AST 23 0 - 50 U/L 02/10/2025 9:59 AM [facility] ALT 39 0 - 50 U/L 02/10/2025 9:59 AM [facility] GFR 21(L) >=60 mL/min/1.7 3 sq meter 02/10/2025 9:59 AM [facility] Comment:eGFR calculated with 2020 CKD-EPI equation. Vegetarian diet, extremely high or low muscle mass, and may affect results. Cystatin C with Glomerular Filtration Rate is a suitable alternative for these patients. ANION GAP 12 5 - 20 mmol/L 02/10/2025 9:59 AM [facility] Blood BLOOD SPECIMEN / Unknown Collection / Unknown 02/10/2025 9:34 AM CDT 02/10/2025 9:39 AM CDT us Tony De Paz MD CHEMISTRY ORDERABLES Final Result [facility] CLIA # [id number] [address] [place] [phone] * US RENAL AND BLADDER (01/29/2025 12:20 PM CDT) Anatomical Region Laterality Modality Abdomen Ultrasound 01/29/2025 12:2 0 PM CDT Impressions 01/29/2025 12:29 PM CDT IMPRESSION: Please see below. US RENAL AND BLADDER, 01/29/2025 12:20 PM Reason For Exam: See Diagnosis. Diagnosis: Renal cell carcinoma of left kidney (CMS/HCC). COMPARISON: 07/15/2024 TECHNIQUE: Multiplanar real-time ultrasonography of the retroperitoneum and urinary tract using travis-scale imaging, supplemented by color and spectral Doppler as needed. FINDINGS: . Right kidney: The renal contour is lobulated and the echogenicity is mildly increased. No mass or hydronephrosis. Extrarenal pelvis is again noted. The overall size is mildly enlarged, likely partially compensatory in nature. The right kidney measures 16.6 cm in length. . Left kidney: Surgically absent. No mass noted in the renal bed. . Additional comments: No focal bladder wall abnormality. Postvoid bladder residual measure 70 mL. ++++++++++++++++++++ IMPRESSION: Interval left nephrectomy. Increased right renal cortical echogenicity which may reflect medical renal disease. No hydronephrosis. Narrative Procedure Note Everett Lowe MD - 01/29/2025 IMPRESSION: Please see below. US RENAL AND BLADDER, 01/29/2025 12:20 PM Reason For Exam: See Diagnosis. Diagnosis: Renal cell carcinoma of left kidney (CMS/HCC). COMPARISON: 07/15/2024 TECHNIQUE: Multiplanar real-time ultrasonography of the retroperitoneum and urinary tract using travis-scale imaging, supplemented by color and spectral Doppler as needed. FINDINGS: . Right kidney: The renal contour is lobulated and the echogenicity is mildly increased. No mass or hydronephrosis. Extrarenal pelvis is again noted. The overall size is mildly enlarged, likely partially compensatory in nature. The right kidney measures 16.6 cm in length. . Left kidney: Surgically absent. No mass noted in the renal bed. . Additional comments: No focal bladder wall abnormality. Postvoid bladder residual measure 70 mL. ++++++++++++++++++++ IMPRESSION: Interval left nephrectomy. Increased right renal cortical echogenicity which may reflect medical renal disease. No hydronephrosis. us Nicole ROSE US ORDERABLES Final Result * CT ABDOMEN PELVIS WO CONTRAST (03/16/2022 9:30 PM BAGGAGE HANDLING SUPERVISOR) Anatomical Region Laterality Modality Abdomen Computed Tomogra phy 03/16/2022 9:55 PM [employer]AGGAGE HANDLING SUPERVISOR Addenda Addendum by Vamshi Bonner MD on 03/22/2022 11:24 AM BAGGAGE HANDLING SUPERVISOR ADDENDUM: PowerScribe dictation error. Impression #4 should state bladder , not gallbladder . EXAM: CT ABDOMEN PELVIS WO CONTRAST DIAGNOSIS/REASON FOR EXAM: Flank pain, kidney stone suspected, Left flank DATE AND TIME OF EXAM: 03/16/2022, 9:30 PM. COMPARISON: None. TECHNIQUE: Axial CT images of the abdomen and pelvis were obtained without contrast. Sagittal and coronal reconstructions were created. FINDINGS: The liver is normal in size and contour. The mildly distended gallbladder contains partially calcified gallstones. There is no pericholecystic fat stranding. The spleen measures 12.5 cm in diameter. The pancreas is unremarkable. No adrenal nodules identified. The right kidney is unremarkable. The left kidney is prominent in size and lobular in contour. At the left ureteropelvic junction, there is a 15 x 10 x 13 mm calculus. There is mild left hydronephrosis. Hyperdense fluid measuring 51 Hounsfield units and is located within the left pelvic calyceal collecting system. There is possible wall thickening of the superior aspect of the left pelvicalyceal collecting system. A 2 mm calculus is located in the inferior pole of the left kidney. The bladder is mildly distended. A small amount of hyperdense material measuring 3.9 x 1.8 cm is located in the dependent lumen of the bladder. The prostate is normal in size and contains small calcifications. A small amount of stool and gas is located throughout the colon. The colon is not significantly distended. The appendix is normal in size, and there is no periappendiceal fat stranding. The small bowel and stomach are nondistended. No free intraperitoneal air or free fluid is identified. A moderate-sized fat-containing periumbilical hernia is present. The abdominal aorta is unremarkable. There is a small hiatal hernia. The lung bases are unremarkable. The heart size is within normal limits. There are mild to moderate degenerative changes of the lumbosacral spine and lower thoracic spine. IMPRESSION: 1. Left nephrolithiasis. A 15 x 10 x 13 mm calculus at the left ureteropelvic junction appears to cause mild left hydronephrosis. A ureteropelvic junction obstruction is also a possibility. 2. Hyperdense material within the left pelvicalyceal collecting system likely represents blood or blood clot. 3. There is possible wall thickening of the superior aspect of the left of the calyceal system. This could also represent old blood clots. Neoplasm is possible. A CT urogram or contrast enhanced MRI of the abdomen could be obtained for further evaluation, if clinically indicated. 4. A 3.9 x 1.8 cm hypodense lesion in the dependent lumen of bladder likely represents blood clot. A bladder mass is also possibility. Neoplasm cannot be ruled out. Clinical correlation is recommended. 5. The left kidney is prominent in size and lobular in contour. An ill-defined mass at the inferior pole of the left kidney is possible. A contrast enhanced MRI of the abdomen could be obtained for further evaluation. 6. Cholelithiasis. 7. Small hiatal hernia. Impressions 03/16/2022 10:40 PM BAGGAGE HANDLING SUPERVISOR IMPRESSION: 1. Left nephrolithiasis. A 15 x 10 x 13 mm calculus at the left ureteropelvic junction appears to cause mild left hydronephrosis. A ureteropelvic junction obstruction is also a possibility. 2. Hyperdense material within the left pelvicalyceal collecting system likely represents blood or blood clot. 3. There is possible wall thickening of the superior aspect of the left of the calyceal system. This could also represent old blood clots. Neoplasm is possible. A CT urogram or contrast enhanced MRI of the abdomen could be obtained for further evaluation, if clinically indicated. 4. A 3.9 x 1.8 cm hypodense lesion in the dependent lumen of gallbladder likely represents blood clot. A bladder mass is also possibility. Neoplasm cannot be ruled out. Clinical correlation is recommended. 5. The left kidney is prominent in size and lobular in contour. An ill-defined mass at the inferior pole of the left kidney is possible. A contrast enhanced MRI of the abdomen could be obtained for further evaluation. 6. Cholelithiasis. 7. Small hiatal hernia. Narrative 03/16/2022 10:40 PM BAGGAGE HANDLING SUPERVISOR EXAM: CT ABDOMEN PELVIS WO CONTRAST DIAGNOSIS/REASON FOR EXAM: Flank pain, kidney stone suspected, Left flank DATE AND TIME OF EXAM: 03/16/2022, 9:30 PM. COMPARISON: None. TECHNIQUE: Axial CT images of the abdomen and pelvis were obtained without contrast. Sagittal and coronal reconstructions were created. FINDINGS: The liver is normal in size and contour. The mildly distended gallbladder contains partially calcified gallstones. There is no pericholecystic fat stranding. The spleen measures 12.5 cm in diameter. The pancreas is unremarkable. No adrenal nodules identified. The right kidney is unremarkable. The left kidney is prominent in size and lobular in contour. At the left ureteropelvic junction, there is a 15 x 10 x 13 mm calculus. There is mild left hydronephrosis. Hyperdense fluid measuring 51 Hounsfield units and is located within the left pelvic calyceal collecting system. There is possible wall thickening of the superior aspect of the left pelvicalyceal collecting system. A 2 mm calculus is located in the inferior pole of the left kidney. The bladder is mildly distended. A small amount of hyperdense material measuring 3.9 x 1.8 cm is located in the dependent lumen of the bladder. The prostate is normal in size and contains small calcifications. A small amount of stool and gas is located throughout the colon. The colon is not significantly distended. The appendix is normal in size, and there is no periappendiceal fat stranding. The small bowel and stomach are nondistended. No free intraperitoneal air or free fluid is identified. A moderate-sized fat-containing periumbilical hernia is present. The abdominal aorta is unremarkable. There is a small hiatal hernia. The lung bases are unremarkable. The heart size is within normal limits. There are mild to moderate degenerative changes of the lumbosacral spine and lower thoracic spine. Procedure Note Vamshi Bonner MD - 03/16/2022 EXAM: CT ABDOMEN PELVIS WO CONTRAST DIAGNOSIS/REASON FOR EXAM: Flank pain, kidney stone suspected, Left flank DATE AND TIME OF EXAM: 03/16/2022, 9:30 PM. COMPARISON: None. TECHNIQUE: Axial CT images of the abdomen and pelvis were obtained without contrast. Sagittal and coronal reconstructions were created. FINDINGS: The liver is normal in size and contour. The mildly distended gallbladder contains partially calcified gallstones. There is no pericholecystic fat stranding. The spleen measures 12.5 cm in diameter. The pancreas is unremarkable. No adrenal nodules identified. The right kidney is unremarkable. The left kidney is prominent in size and lobular in contour. At the left ureteropelvic junction, there is a 15 x 10 x 13 mm calculus. There is mild left hydronephrosis. Hyperdense fluid measuring 51 Hounsfield units and is located within the left pelvic calyceal collecting system. There is possible wall thickening of the superior aspect of the left pelvicalyceal collecting system. A 2 mm calculus is located in the inferior pole of the left kidney. The bladder is mildly distended. A small amount of hyperdense material measuring 3.9 x 1.8 cm is located in the dependent lumen of the bladder. The prostate is normal in size and contains small calcifications. A small amount of stool and gas is located throughout the colon. The colon is not significantly distended. The appendix is normal in size, and there is no periappendiceal fat stranding. The small bowel and stomach are nondistended. No free intraperitoneal air or free fluid is identified. A moderate-sized fat-containing periumbilical hernia is present. The abdominal aorta is unremarkable. There is a small hiatal hernia. The lung bases are unremarkable. The heart size is within normal limits. There are mild to moderate degenerative changes of the lumbosacral spine and lower thoracic spine. IMPRESSION: 1. Left nephrolithiasis. A 15 x 10 x 13 mm calculus at the left ureteropelvic junction appears to cause mild left hydronephrosis. A ureteropelvic junction obstruction is also a possibility. 2. Hyperdense material within the left pelvicalyceal collecting system likely represents blood or blood clot. 3. There is possible wall thickening of the superior aspect of the left of the calyceal system. This could also represent old blood clots. Neoplasm is possible. A CT urogram or contrast enhanced MRI of the abdomen could be obtained for further evaluation, if clinically indicated. 4. A 3.9 x 1.8 cm hypodense lesion in the dependent lumen of gallbladder likely represents blood clot. A bladder mass is also possibility. Neoplasm cannot be ruled out. Clinical correlation is recommended. 5. The left kidney is prominent in size and lobular in contour. An ill-defined mass at the inferior pole of the left kidney is possible. A contrast enhanced MRI of the abdomen could be obtained for further evaluation. 6. Cholelithiasis. 7. Small hiatal hernia. us Juanfrancine Jaffe Jesús DO CT ORDERABLES Edited Re sult - Final from Last 3 Months or Most Recently Relevant to Health Maintenance Insurance [employer] [facility] [email or web address] [id number] Advance Directives For more information, please contact: [phone] * Full Code (Latest Code Status on File) Date Activated Date Inactivated Comments 08/27/2024 8:56 AM 08/27/2024 8:47 PM * Full Code Date Activated Date Inactivated Comments 07/01/2024 11:07 AM 07/01/2024 4:06 PM * Full Code Date Activated Date Inactivated Comments 04/01/2022 7:45 AM 04/01/2022 3:11 PM
--- OUTSIDE RECORDS SUMMARY | 2025-02-12 10:04 | XMS_ITS | Encounter Summary ---
Author Organization [facility] Address [address] [place] [facility] [address] Care Team Providers Care Integration Director Name Role Phone Unavailable Primary Care Provider Unavailabl e Encounter Details Date Type Department Care Team (Latest Contact Info) Description 02/05/2007 Outpatient Historical [facility] Family Medicine- [address] [place] [phone] [place], [place] NO ADDRESS ON FILE Pain in Joint, Shoulder Region (Primary Dx); Skin Sensation Disturb; Unspecified Essential Hypertension Social History Tobacco Use Types Packs/Day Years Used Date Smoking Tobacco: Never Assessed Sex and Gender Information Value Date Recorded Sex Assigned at Not on file 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
--- OUTSIDE RECORDS SUMMARY | 2025-02-12 10:04 | XMS_ITS | Encounter Summary ---
Author Organization [facility] Address [address] [place] [address] Care Team Providers Care Rate Supervisor Name Role Phone Unavailable Primary Care Provider Unavailabl e Encounter Details Date Type Department Care Team (Late Contact Info) Description 01/28/2025 Lab Requisition [facility] Laboratory Services [place] [address] [place] [address] Nicole Cook, ROSE [address] [place] [phone] Malignant neoplasm of left kidney, except renal pelvis (CMS/HCC) Social History Tobacco Use Types Packs/Day Years Used Date Smoking Tobacco: Former Cigarettes Smokeless Tobacco: Never Alcohol Use Standard Drinks/Week Comments Yes 1 (1 standard drink = 0.6 oz pur e alcohol) rare Feeling Safe Answer Date Recorded Are you in a relationship wi th someone who hurts you emotionally and/or physically? 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 Gender Identity Not on file Sexual Orientation Not on file documented as of this encounter Plan of Treatment Upcoming Encounters Date Type Department Care Team (Late st Contact Info) Description 04/07/2025 2:30 PM SCIENCE SPECIALIST Office Visit [facility] Urology [place] [address] [place] [address] Aurora Solis, [facility] [address] [place] [phone] 06/24/2025 8:00 AM CDT Office Visit [facility] [place] [address] [place] [address] [place] [address] [place] [address] Nicole Cook ARMORED TRANSPORT SERVICE MANAGER [address] [facility] [place] [address] documented as of this encounter Procedures Procedure Name Priority Date/Time Associated Diagnosis Comments CBC WITH DIFFERENTIAL Stat 01/28/2025 12:57 PM CDT Malignant neoplasm of left kidney, except renal pelvis (CMS/HCC) COMPREHENSIVE METABOLIC PANEL Stat 01/28/2025 12:57 PM CDT Malignant neoplasm of left kidney, except renal pelvis (CMS/HCC) documented in this encounter Results * (ABNORMAL) COMPREHENSIVE METABOLIC PANEL (01/28/2025 12:57 PM CDT) SODIUM 135(L) 136 - 145 mmol/L 01/28/2025 1:17 PM CDT [facility] POTASSIUM 4.2 3.5 - 5.1 mmol/L 01/28/2025 1:17 PM CDT [facility] CHLORIDE 106 98 - 107 mmol/L 01/28/2025 1:17 PM CDT [facility] CO2 16(L) 22 - 29 mmol/L 01/28/2025 1:17 PM CDT [facility] CALCIUM 10.0 8.6 - 10.0 mg/dL 01/28/2025 1:17 PM CDT [facility] BUN 44(H) 6 - 20 mg/dL 01/28/2025 1:17 PM [facility] CREATININE 2.58(H) 0.67 - 1.17 mg/dL 01/28/2025 1:17 PM [facility] GLUCOSE 83 74 - 99 mg/dL 01/28/2025 1:17 PM [facility] TOTAL PROTEIN 8.5 6.6 - 8.7 g/dL 01/28/2025 1:17 PM [facility] ALBUMIN 4.7 3.5 - 5.2 g/dL 01/28/2025 1:17 PM [facility] BILIRUBIN TOTAL 0.4 0.0 - 1.2 mg/dL 01/28/2025 1:17 PM [facility] ALKALINE PHOSPHATASE 81 40 - 129 U/L 01/28/2025 1:17 PM [facility] AST 19 0 - 50 U/L 01/28/2025 1:17 PM [facility] ALT 24 0 - 50 U/L 01/28/2025 1:17 PM [facility] GFR 29(L) >=60 mL/min/1.7 3 sq meter 01/28/2025 1:17 PM [facility] Comment:eGFR calculated with 2020 CKD-EPI equation. Vegetarian diet, extremely high or low muscle mass, and may affect results. Cystatin C with Glomerular Filtration Rate is a suitable alternative for these patients. ANION GAP 13 5 - 20 mmol/L 01/28/2025 1:17 PM [facility] Blood 01/28/2025 12:5 7 PM CDT 01/28/2025 12:57 PM CDT us Nicole FINCHP CHEMISTRY ORDERABLES Final Resul t [facility] CLIA # [id number] [address] [place] [address] * (ABNORMAL) CBC WITH DIFFERENTIAL (01/28/2025 12:57 PM CDT) WBC 10.8(H) 4.2 - 9.1 K/uL 01/28/2025 1:01 PM [facility] RBC 5.01 4.63 - 6.08 M/uL 01/28/2025 1:01 PM [facility] HEMOGLOBIN 14.4 13.7 - 17.5 g/dL 01/28/2025 1:01 PM [facility] HEMATOCRIT 41.8 40.1 - 51.0 % 01/28/2025 1:01 PM [facility] MCV 83.4 79.0 - 92.2 fL 01/28/2025 1:01 [facility] MCH 28.7 25.7 - 32.2 pg 01/28/2025 1:01 [facility] MCHC 34.4 32.3 - 36.5 g/dL 01/28/2025 1:01 [facility] RDW 13.3 11.0 - 14.5 % 01/28/2025 1:01 [facility] RDW-STDEV 40.3 36.9 - 56.9 fL 01/28/2025 1:01 [facility] PLATELETS 275 130 - 400 K/uL 01/28/2025 1:01 [facility] MPV 9.8(L) 10.0 - 14.8 fL 01/28/2025 1:01 [facility] NEUTROPHILS 75(H) 34 - 68 % 01/28/2025 1:01 PM [facility] LYMPHOCYTES 11(L) 22 - 53 % 01/28/2025 1:01 PM [facility] MONOCYTES 9 5 - 12 % 01/28/2025 1:01 PM [facility] EOSINOPHILS 3 1 - 7 % 01/28/2025 1:01 PM [facility] BASOPHILS 1 0 - 1 % 01/28/2025 1:01 PM [facility] IMMATURE GRANULOCYTES 0 % 01/28/2025 1:01 [facility] NEUTROPHIL ABSOLUTE 8.05(H) 1.78 - 5.38 K/uL 01/28/2025 1:01 PM CDT [facility] LYMPHOCYTE ABSOLUTE 1.23 1.20 - 3.40 K/uL 01/28/2025 1:01 PM CDT [facility] MONOCYTE ABSOLUTE 0.99(H) 0.30 - 0.82 K/uL 01/28/2025 1:01 PM CDT [facility] EOSINOPHIL ABSOLUTE 0.37 0.04 - 0.54 K/uL 01/28/2025 1:01 PM CDT [facility] BASOPHILS ABSOLUTE 0.09(H) 0.01 - 0.08 K/uL 01/28/2025 1:01 PM CDT [facility] IMMATURE GRANULOCYTES ABSOLUTE 0.04 K/uL 01/28/2025 1:01 PM T [facility] Blood Collection / Unknown 01/28/2025 12:57 PM CDT 01/28/2025 12:57 PM CDT us Nicole Cook ARMORED TRANSPORT SERVICE MANAGER HEMATOLOGY ORDERABLES Final Resu lt [facility] CLIA # [id number] [address] [place] [address] documented in this encounter Visit Diagnoses Diagnosis Malignant neoplasm of left kidney, except renal pelvis (CMS/HCC) Malignant neoplasm of kidney, except pelvis documented in this encounter
--- OUTSIDE RECORDS SUMMARY | 2025-02-12 10:04 | XMS_ITS | Clinical Summary ---
Author Organization [facility] Address [address] [place] [address] Care Team Providers Care Product Communications Manager Name Role Phone Unavailable Primary Care Provider Unavailabl e Allergies No known active allergies Medications No known medications Active Problems No known active problems Family History Medical History Relation Name Comments Healthy Father Healthy Mother Relation Name Status Comments Father Alive Mother Alive Social History Tobacco Use Types Packs/Day Years Used Date Smoking Tobacco: Never Alcohol Use Standard Drinks/Week Comments No 0 (1 standard drink = 0.6 oz pur e alcohol) Sex and Gender Information Value Date Recorded Sex Assigned at Not on file 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 Gender Identity Not on file Sexual Orientation Not on file Last Filed Vital Signs Vital Sign Reading Time Taken Comments Blood Pressure 130/80 06/16/2008 4:11 PM LUGGER Pulse - - Temperature 36.3 C (97.4 F) 06/16/2008 4:11 PM LUGGER Respiratory Rate - - Oxygen Saturation - - Inhaled Oxygen Concentration - - Weight 110.2 kg (243 lb) 06/16/2008 4:11 PM LUGGER Height - - Body Mass Index - - Plan of Treatment Health Maintenance Due Date Last Done Comments DTAP/TDAP/TD VACCINES (1 - Tdap) 1989 HEPATITIS B VACCINES (1 of 3 - 19+ 3-dose series) 04/16 COLORECTAL SCREENING 2015 Colorectal Cancer Screening 2015 FIT-DNA Q 3 years 2015 FIT/FOBT Q 1 year 2015 Flex Sig/CT Colonography Q 5 years 2015 ZOSTER VACCINE (1 of 2) 2020 INFLUENZA VACCINE (#1) 2024
--- OUTSIDE RECORDS SUMMARY | 2025-02-12 10:04 | XMS_ITS ---
Author Organization [facility] Address [address] Reina: Epic Prelude ADT [place] [address] Care Team Providers Care Stereotyper Apprentice Name Role Phone Unavailable Primary Care Provider Unavailabl e Active Problems Problem Noted Date Diagnosed Date Hiatal hernia with gastroesophageal reflux 12/25 Renal cell carcinoma of left kidney 12/25/2024 Umbilical hernia without obstruction or gangrene 12/25/2024 Left renal mass 08/26/2024 Current Treatment and Therapy Plans No current plan information found. Past Treatment and Therapy Plans No past plan information found. Lifetime Dose Tracking * Chemical Lifetime Dose Automatic Entry Manual Entr y Effective Dose 35.4 mSv 35.4 mSv 0 mSv Total DLP 4,094.4 DLP 4,094.4 DLP 0 DLP CTDIvol Max 159.5 mGy 159.5 mGy 0 mGy CTDIvol Min 148.6 mGy 148.6 mGy 0 mGy
--- OUTSIDE RECORDS SUMMARY | 2025-02-12 10:04 | XMS_ITS | Encounter Summary ---
Author Organization [facility] Address [address] Reina: Epic Prelude ADT JAYLENEDENZEL [place] [address] Care Team Providers Care Dispensing Lead Name Role Phone Unavailable Primary Care Provider Unavailabl e Encounter Details Date Type Department Care Team (Latest Contact Info) Description 02/10/2025 Travel Social History Tobacco Use Types Packs/Day Years [...] worry about transportation for future doctor visits, bean picker medication, etc.? 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 Gender Identity Not on file Sexual Orientation Not on file documented as of this encounter Plan of Treatment Upcoming Encounters Date Type Department Care Team (Late st Contact Info) Description 04/07/2025 2:30 PM PIPELINE TECHNICIAN Office Visit [facility] Urology [address] [place] [address] Aurora Solis FNP [address] [place] [address] [address] [place] [phone] 06/24/2025 8:00 AM CDT Office Visit [facility] Family Medicine [place] [address] [place] [address] [place] [phone] Nicole Cook FNP [address] [place] [phone] documented as of this encounter Visit Diagnoses Not on filedocumented in this encounter
--- NOTE | 2025-02-12 11:31 | W.ED.MALEGU ---
HPI - Male Genitourinary General: Chief complaint: Urogenital-Male Stated complaint: Tired can't Pee abnormal Labs Time Seen by Provider: 02/12/25 11:25 History of Present Illness: 54-year-old man with history of renal cell carcinoma status post left nephrectomy now receiving pembrolizumab every 6 weeks as adjuvant therapy. Was sent to the emergency room secondary to worsening renal function and acidosis. Patient states he has been having some malaise. No fevers. They held his planned Keytruda treatment today. No known fevers. No altered mental status. No focal motor deficits. Related Data Home Medications ?Medication ?Instructions ?Recorded ?Confirmed omeprazole 40 mg capsule,delayed 40 mg PO DAILY 01/20/25 02/12/25 release acetaminophen 500 mg tablet 500 mg PO QID PRN Fever Or Pain 02/12/25 02/12/25 (Tylenol Extra Strength) potassium chloride 10 mEq 10 meq PO DAILY 02/12/25 02/12/25 capsule,extended release sennosides 8.6 mg tablet (Senokot) 8.6 mg PO DAILY PRN Constipation 02/12/25 02/12/25 Previous Rx's ?Medication ?Instructions ?Recorded ondansetron HCl 8 mg tablet 8 mg PO .COMPLEX PRN nausea and 01/16/25 vomiting #60 tabs prochlorperazine maleate 10 mg 10 mg PO Q6H PRN nausea and 01/16/25 tablet (Compazine) vomiting #30 tabs Allergies Allergy/AdvReac Type Severity Reaction Status Date / Time No Known Allergies Allergy Verified 02/12/25 09:43 Review of Systems Narrative: Constitutional symptoms: Negative except as documented in HPI. Skin symptoms: Negative except as documented in HPI. Eye symptoms: Negative except as documented in HPI. ENMT symptoms: Negative except as documented in HPI. Respiratory symptoms: Negative except as documented in HPI. Cardiovascular symptoms: Negative except as documented in HPI. Gastrointestinal symptoms: Negative except as documented in HPI. Genitourinary symptoms: Negative except as documented in HPI. Musculoskeletal symptoms: Negative except as documented in HPI. Neurologic symptoms: Negative except as documented in HPI. Psychiatric symptoms: Negative except as documented in HPI. Endocrine symptoms: Negative except as documented in HPI. [facility] ED PFS: Medical History (Updated 02/12/25 @ 11:56 by Minal Mendez MD) No pertinent past medical history Social History Smoking and tobacco/nicotine status: never used tobacco/nicotine Substance/Drug Use: never Physical Exam Narrative: EXAM NARRATIVE: General: Alert, no acute distress. Skin: Warm, dry. Head: Normocephalic, atraumatic. Neck: Supple, trachea midline. Eye: Extraocular movements are intact. Ears, nose, mouth and throat: Tacky oral mucosa Cardiovascular: Regular, Normal peripheral perfusion. Respiratory: Lungs are clear to auscultation, respirations are non-labored, breath sounds are equal, Symmetrical chest wall expansion. Gastrointestinal: Soft, Nontender, Non distended Musculoskeletal: Normal ROM, no deformity. Neurological: Alert and oriented, No focal neurological deficit observed. Psychiatric: Cooperative, appropriate mood & affect. 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 is with him I reviewed the patient's medical record. I reviewed today's oncology note. Lab work done today showed renal failure and metabolic acidosis so he is being sent to the emergency room for admission. I reviewed the patient's current home meds Patient has been receiving every 6-week Keytruda injections. This was held today. Alternate historians: None Differential diagnosis: including but not limited to and based on the above HPI, review of systems and physical exam: Patient has known renal failure and acidosis from labs done earlier today. Adding on a CK, a lactic acid and a urinalysis. Orders placed to evaluate differential diagnosis based on the above differential, HPI and physical exam Lab Review: Laboratory results were reviewed and interpreted by myself the emergency room physician. No leukocytosis. Bicarb is down to 12. BUN and creatinine are elevated on labs done earlier today. Creatinine is down to 3 from 3.4 a while back but bicarb is lower. Assessment of risk: Level of risk: Moderate. Immunocompromise patient with renal failure and a unilateral kidney. Hospitalization considerations: Patient is being admitted. Reexamination: Patient remained stable. No increased work of breathing. No altered mental status. No focal motor deficits. Consultation: I spoke with Dr. Carter who agrees to admission. Assessment and plan: Renal failure Metabolic acidosis History of renal cell carcinoma with left nephrectomy -I discussed the patient with the hospitalist on-call who is admitting the patient. - Discussed findings and plan with patient. Answered any questions. - All laboratory values were reviewed and interpreted personally by myself, the ER physician - Evaluation and treatment of this problem were appropriate in the emergency setting No radiology studies performed this visit Discharge Plan Discharge Patient Disposition: Admitted As Inpatient Clinical Impression: Acute renal failure, Renal cell carcinoma of left kidney, History of left radical nephrectomy, Metabolic acidosis Condition: Stable Coding Level of Care Code ED Behavioral Health Worker for Brent Mendez
[2025-02-12 12:24] LABS: Lactic Sepsis W/Reflex 1.0 mmol/L (0.5-2.2)
--- NOTE | 2025-02-12 13:24 | PC.NURSE ---
Report called to Marlene Durham
[2025-02-12 13:36] LABS: Glucose Urine UA Negative (Normal); Nitrate Urine Negative (Negative); Specific Gravity, Urine 1.018 (1.005-1.030)
[2025-02-12 13:42] LABS: Add Urine Microscopic? YES
[2025-02-12 14:25] VITALS: BMI 33.7
--- NOTE | 2025-02-12 14:37 | PM.HP ---
Providers/Chief Complaint Admitting Physician: Panchito Carter Primary Care Provider: Nicole Cook Chief Complaint: Tired can't Pee abnormal Labs History of Present Illness Everardo Greene is a 54 year old male referred for evaluation after oncology/endocrinology noted worsening kidney function on recent labs. Urinalysis reportedly normal without blood. Kidney ultrasound on the at [facility] showed no obstruction; described as overall fine with possible mild damage. Reports increased fatigue over the past days and weaker urine stream with possibly less volume, but no difficulty initiating urination. Oral intake decreased due to not feeling well; acknowledges not drinking much. Denies nausea, vomiting, diarrhea, rashes, blood in stool, dark stools, or blood in urine. Constipation attributed to treatment. No nonsteroidal anti-inflammatory drug (NSAID) use since before surgery. History of kidney cancer limited to one kidney; that kidney was removed. Receiving immunotherapy (Keytruda); notes feeling worse after the second treatment. Bone scan reportedly showed chronic joint issues (knees and shoulders), known prior to scan. Endocrinology visit (around the ) for low thyroid labs; additional labs indicated worse kidney function. On Sunday, had two episodes of passing out while on the toilet, fell forward and hit head; at [facility] ER received intravenous fluids with potassium and was prescribed a pill. Blood pressure at ER noted around 117 and later near 110; usual blood pressure is in the 130s. Plan discussed to hold further immunotherapy temporarily and reassess. Review of Systems Const: Reports: change in appetite; Denies: fever(s), chills, body aches or malaise ENMT: Denies: throat pain Card: Reports: syncope; Denies: chest pain, edema, pre-syncope or dyspnea on exertion Resp: Denies: dyspnea, productive cough, change in phlegm color or hemoptysis GI: Denies: abdominal pain, nausea, vomiting, diarrhea, constipation, hematochezia or melena : Denies: flank pain, difficulty urinating, urinary frequency or hematuria Musc: Denies: back pain, joint swelling or joint redness Skin/Breast: Denies: rash or new lesions Neuro: Denies: headache(s) or confusion Medications/Allergies Home Medications ?Medication ?Instructions ?Recorded ?Confirmed ?Last Taken ?Type ondansetron HCl 8 mg tablet 8 mg PO .COMPLEX PRN nausea and 01/16/25 02/12/25 Unknown Rx vomiting #60 tabs prochlorperazine maleate 10 mg 10 mg PO Q6H PRN nausea and 01/16/25 02/12/25 Unknown Rx tablet (Compazine) vomiting #30 tabs omeprazole 40 mg capsule,delayed 40 mg PO DAILY 01/20/25 02/12/25 02/11/25 History release acetaminophen 500 mg tablet 500 mg PO QID PRN Fever Or Pain 02/12/25 02/12/25 Unknown History (Tylenol Extra Strength) potassium chloride 10 mEq 10 meq PO DAILY 02/12/25 02/12/25 02/11/25 History capsule,extended release sennosides 8.6 mg tablet (Senokot) 8.6 mg PO DAILY PRN Constipation 02/12/25 02/12/25 02/11/25 History Allergies Allergy/AdvReac Type Severity Reaction Status Date / Time No Known Allergies Allergy Verified 02/12/25 09:43 PFSH Acute PFSH: Medical History (Updated 02/12/25 @ 16:08 by Panchito Carter MD) Renal cell carcinoma of left kidney No pertinent past medical history Surgical History (Updated 02/12/25 @ 15:27 by Panchito Carter MD) History of left radical nephrectomy Social History (Updated 02/12/25 @ 15:27 by Panchito Carter MD) Smoking and tobacco/nicotine status: never used tobacco/nicotine Alcohol intake: never Substance/Drug Use: never Vitals/I&O/Wt Last Vital Signs Temp 98.8 F 02/12/25 09:37 Pulse 85 02/12/25 09:37 BP 127/85 02/12/25 09:37 Pulse Ox 98 02/12/25 09:37 O2 Del Method Room Air 02/12/25 14:25 02/11/25 02/12/25 02/12/25 22:59 06:59 14:59 Intake Total 1000 / 1000 Balance 1000 / 1000 Weight last 48 hrs Weight 116.176 kg Weight 114.305 kg Physical Exam Narrative: Accompanied by his . Const: COMMON NORMALS: patient oriented x3 and alert GENERAL APPEARANCE: cooperative ORIENTATION/CONSCIOUSNESS: Yes awake HENMT: COMMON NORMALS: oropharynx normal Neck/C-Spine: COMMON NORMALS: no JVD Resp: COMMON NORMALS: normal respiratory effort and clear to auscultation bilaterally AUSCULTATION: clear to auscultation bilaterally Cardio: COMMON NORMALS: no JVD, regular rhythm, S1 normal heart sound present, S2 normal heart sound present and No murmurs present (Cardio) RHYTHM: regular rhythm HEART SOUNDS: S1 normal heart sound present and S2 normal heart sound present GI: COMMON NORMALS: Normal to inspection, nondistended, normoactive bowel sounds present, Soft to palpation and non-tender PALPATION: Yes Soft to palpation Extremity: COMMON NORMALS: no joint enlargement and no pedal edema Neuro: COMMON NORMALS: patient oriented x3 and moves all extremities SENSORIUM/ORIENTATION: Yes alert Skin: COMMON NORMALS: no rashes or lesions noted GENERAL SKIN EXAM: no rashes or lesions noted Data Micro: Microbiology 02/12/25 12:09 Blood Culture - Preliminary Blood SPECIMEN COLLECTED 02/12/25 12:11 Blood Culture - Preliminary Blood SPECIMEN COLLECTED A&P Assessment and plan 1. ELAINE (acute kidney injury): Worsening renal function noted on recent labs from endocrinology/oncology. Urinalysis reportedly normal (no hematuria). Kidney ultrasound showed no obstruction; described as overall fine with possible mild damage. Declined oral intake and lower blood pressures (110?117 vs baseline 130s) may contribute. Potential relation to immunotherapy was raised. Reviewed vitals, CBC, CMP from this morning. Reviewed UA, CK, lactic acid, CRP. Reviewed ED provider note, discussed with ED provider. Reviewed oncology note. - Hold Keytruda (pembrolizumab) and reassess. - Recheck labs overnight to ensure no rapid worsening after fluid challenge - Monitor I&O - Monitor blood pressures. - Ensure adequate urine output during observation. - Consult nephrology locally for assessment and recommendations. - Follow up with primary care physician (PCP). - Follow up with oncology to discuss next steps. 2. Syncope: Two episodes of passing out on Sunday while on the toilet with head impact; evaluated at [facility] ER and given intravenous fluids with potassium; blood pressure there 117?110, lower than usual baseline in 130s. - Check orthostatics - Obtain EKG - Obtain TTE - Monitor on telemetry Plan: Decreased urinary stream : Reports weaker urine stream and possibly less urine volume without difficulty initiating urination. - Ensure producing urine during observation. - Monitor I&O Fatigue : Reports feeling very tired over the last several days. Constipation : Constipation attributed to treatment. Kidney cancer status post nephrectomy : Cancer reportedly limited to one kidney; nephrectomy performed. Receiving immunotherapy as precaution; symptoms worsened after second treatment. - Hold further Keytruda pending reassessment. - Follow up with oncology to discuss next steps. Hospitalization bundle : Short inpatient observation and coordination of care were discussed to assess kidney function stability and ensure safety. - Overnight observation. - Recheck labs overnight for major changes. - Monitor blood pressures. - Ensure adequate urine output. - Consult nephrology for preliminary assessment and recommendations. Follow-up : Care coordination after discharge. - Follow up with PCP. - Follow up with oncology. PDMP PDMP Reviewed: Not Reviewed Attestations Medical Necessity Statement*: Place in observation for additional assessment management of ELAINE, syncope and a gentleman undergoing immunotherapy. and High MDM includes amount and/or complexity of data reviewed/ordered [ previous or external records, resulted lab(s)/test(s), ordered lab(s)/test(s) and other healthcare professional discussion] as documented Diagnoses ELAINE (acute kidney injury) N17.9 Syncope R55
--- NOTE | 2025-02-12 15:24 | ECG_ITS ---
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1970 Requested By: Panchito Carter Order Number: [id number] Reading MD: WENDY BAPTISTE Measurements Intervals [place] Rate: 74 P: 50 IL: 180 QRS: -47 QRSD: 106 T: 53 QT: 362 QTc: 402 Interpretive Statements SINUS RHYTHM INCOMPLETE RIGHT BUNDLE BRANCH BLOCK [90+ ms QRS DURATION, TERMINAL R IN V1/V2, 40+ ms S IN I/aVL/V4/V5/V6] LEFT ANTERIOR FASCICULAR BLOCK [QRS AXIS <= -45, QR IN I, RS IN II] No previous ECG available for comparison Electronically Signed On 02-14-2025 21:18:49 CDT by WENDY BAPTISTE [email or web address]
--- NOTE | 2025-02-12 15:24 | USCV_ITS ---
Everardo Greene Age: 54 Gender: M : 1970 Exam Date: 02/12/2025 20:26 Ordering Phys: Panchito Carter MD Technologist: KATHLEEN [place] [facility] [place]: syncope, decreased renal function s/p oncology chemotherapy BP: 130 / 78 HR: 64 Rhythm: Sinus Technical Quality: Adequate MEASUREMENTS (Male / Female) Normal Values 2D ECHO LV Diastolic Diameter PLAX 4.2 cm 4.2 - 5.9 / 3.9 - 5.3 cm IVS Diastolic Thickness 1.5 cm 0.6 - 1.0 / 0.6 - 0.9 cm IVS Systolic Thickness 2.2 cm LVPW Diastolic Thickness 1.7 cm 0.6 - 1.0 / 0.6 - 0.9 cm LVPW Systolic Thickness 2.1 cm LVOT Diameter 2.3 cm LV Ejection Fraction 2D Teich 61.8 % LV Ejection Fraction MOD 4C 67.9 % LV Ejection Fraction MOD 2C 54.4 % LV Ejection Fraction 2C AL 54.3 % LA Diameter 3.6 cm Aorta at Sinotubular Diameter 3.4 cm IVC Diameter 1.5 cm M-MODE LA Ao Ratio MM 1.5 AV Cusp Separation MM 2.3 cm DOPPLER AV Peak Velocity 122.0 cm/s LVOT Peak Velocity 102.0 cm/s AV Area Cont Eq vti 4.1 cm squared AV Area Cont Eq pk 3.4 cm squared MV Peak Velocity 87.0 cm/s MV Area PHT 2.2 cm squared Mitral E to A Ratio 0.8 PV Peak Velocity 99.0 cm/s FINDINGS Left Ventricle Normal left ventricular size, systolic function and wall thickness, with no regional wall motion abnormalities. Left ventricular ejection fraction is estimated at 60%. Grade I/IV diastolic dysfunction (abnormal relaxation filling pattern), normal to mildly elevated filling pressures. Right Ventricle Normal right ventricular size and systolic function. Right Atrium Normal right atrial size. Left Atrium Normal left atrial size. IA Septum Normal appearance of the interatrial septum. Mitral Valve Mildly thickened mitral valve. No mitral valve stenosis. There appeared to be 2.25 cm long subvalvular apparatus noted possible ruptured chordae, cannot rule out vegetation if clinically indicated transesophageal echocardiogram is better modality to assess Aortic Valve Normal aortic valve structure. No aortic valve stenosis or regurgitation. Tricuspid Valve Mild tricuspid valve regurgitation. Pulmonic Valve Trace pulmonary valve regurgitation. Pericardium No pericardial effusion. Aorta Normal diameter of the aortic root and ascending thoracic aorta. IVC Normal IVC diameter. CONCLUSIONS Normal left ventricular size, systolic function and wall thickness, with no regional wall motion abnormalities. Left ventricular ejection fraction is estimated at 60%. Grade I/IV diastolic dysfunction (abnormal relaxation filling pattern), normal to mildly elevated filling pressures. Mildly thickened mitral valve. No mitral valve stenosis. There appeared to be 2.25 cm long subvalvular apparatus noted possible ruptured chordae, cannot rule out vegetation if clinically indicated transesophageal echocardiogram is better modality to assess Mild tricuspid valve regurgitation. There is no pericardial effusion. Right atrial pressure is around 5 mm of mercury. Callie Alston MD (Electronically Signed) Final Date: 13 February 2025 21:35 S
[2025-02-12 16:09] VITALS: BP 116/70; PULSE 68; RESP 18; TEMP 36.8; O2SAT 95
[2025-02-12 16:26] VITALS: BP 130/78; BP 130/80; BP 147/110; PULSE 73; PULSE 82; PULSE 96
--- NOTE | 2025-02-12 17:28 | US_ITS ---
WS: [id number] RENAL ULTRASOUND HISTORY: tiana COMPARISON: 11/25/2024 TECHNIQUE: 2-D and color Doppler imaging of the kidney submitted. Right kidney: 15.9 cm x 8.0 cm x 7.7 cm. Cortex: 1.6 cm Kidney is enlarged but similar to the prior CT from 11/25/2024. No obstruction or mass. No cortical thinning. Left kidney: Status post LEFT nephrectomy. Previously described soft tissue mass in the LEFT renal bed is not evident by ultrasound. Aorta: Normal. Urinary Bladder: Normal distention. Mildly heterogeneous prostate gland. US/US renal BI* [id number] IMPRESSION: 1. Normal RIGHT kidney. 2. Status post LEFT nephrectomy.
--- NOTE | 2025-02-12 17:30 | PM.CONSULT ---
Providers/Reason For Consult Consulting Physician/Specialty*: kommana/Nephrology Reason for Consult*: ELAINE Attending Physician: Panchito Carter Primary Care Provider: Nicole Cook History of Present Illness History of Present Illness Everardo Greene is a 54 year old male Patient is a 54-year-old male with past medical history of renal cell carcinoma diagnosed in August/2024, and underwent left nephrectomy and started on Keytruda every 6 weeks in November 2024. Creatinine baseline is at 1.2-1.3 range, noted rising creatinine in December 2024 with a creatinine of 1.4. And most recently creatinine is in the 3 range and he was seen at oncology office today and due to abnormal labs he was sent to the emergency department for further evaluation. Other lab data is significant for hypokalemia with a potassium of 3.4 and metabolic acidosis with a bicarbonate level of 13. Patient was supposed to get cycle 3 of Keytruda today but was not given due to worsening renal function. He is currently on room air, reports poor p.o. intake and decreased appetite for the last few weeks. Also noticed decreased urine output Review of Systems Narrative: negative Medications/Allergies Home Medications ?Medication ?Instructions ?Recorded ?Confirmed ?Last Taken ?Type ondansetron HCl 8 mg tablet 8 mg PO .COMPLEX PRN nausea and 01/16/25 02/12/25 Unknown Rx vomiting #60 tabs prochlorperazine maleate 10 mg 10 mg PO Q6H PRN nausea and 01/16/25 02/12/25 Unknown Rx tablet (Compazine) vomiting #30 tabs omeprazole 40 mg capsule,delayed 40 mg PO DAILY 01/20/25 02/12/25 02/11/25 History release acetaminophen 500 mg tablet 500 mg PO QID PRN Fever Or Pain 02/12/25 02/12/25 Unknown History (Tylenol Extra Strength) potassium chloride 10 mEq 10 meq PO DAILY 02/12/25 02/12/25 02/11/25 History capsule,extended release sennosides 8.6 mg tablet (Senokot) 8.6 mg PO DAILY PRN Constipation 02/12/25 02/12/25 02/11/25 History Allergies Allergy/AdvReac Type Severity Reaction Status Date / Time No Known Allergies Allergy Verified 02/12/25 09:43 PFSH Acute PFSH: Medical History (Updated 02/12/25 @ 16:08 by Panchito Carter MD) Renal cell carcinoma of left kidney No pertinent past medical history Surgical History (Updated 02/12/25 @ 15:27 by Panchito Carter MD) History of left radical nephrectomy Social History (Updated 02/12/25 @ 15:27 by Panchito Carter MD) Smoking and tobacco/nicotine status: never used tobacco/nicotine Alcohol intake: never Substance/Drug Use: never Vitals/I&O/Wt Last Vital Signs Temp 98.2 F 02/12/25 16:09 Pulse 73 02/12/25 16:26 Resp 18 02/12/25 16:09 BP 130/78 02/12/25 16:26 Pulse Ox 95 02/12/25 16:09 O2 Del Method Room Air 02/12/25 16:09 02/12/25 02/12/25 02/12/25 06:59 14:59 22:59 Intake Total 1000 / 1000 Balance 1000 / 1000 Weight last 48 hrs Weight 116.176 kg Weight 114.305 kg Physical Exam Narrative: awake , alert , no distress No JVD PEERLA S1S2 RRR lungs clear Abd sodt , non tender No edema no skin rash Data Micro: Microbiology 02/12/25 12:09 Blood Culture - Preliminary Blood SPECIMEN COLLECTED 02/12/25 12:11 Blood Culture - Preliminary Blood SPECIMEN COLLECTED A&P Assessment and plan 1. ELAINE (acute kidney injury): 1. Acute on chronic kidney disease stage III: Baseline creatinine seems to be in the 1.2-1.3 range, creatinine has worsened to 3 range now. Differential diagnosis-prerenal due to decreased intake, immune mediated AIN due to Keytruda (noted progressive rising creatinine )-though there was no peripheral eosinophilia, no sterile pyuria, rule out obstruction. Check urine electrolytes and urine eosinophils-, check renal ultrasound - Started on bicarbonate drip overnight, - If no improvement in creatinine, will initiate steroids and may consider kidney biopsy(cautious decision due to solitary kidney) - Avoid IV contrast, no acute indication for dialysis 2. Renal cell carcinoma: Status post left direct nephrectomy and started on Keytruda status post 2 cycles 3. Metabolic acidosis: Started on bicarbonate drip 4. Hypokalemia, replete Patient evaluated using audiovisual cart. Time spent 40 minutes. PDMP PDMP Reviewed: Not Reviewed Consult Attestations Medical Necessity Statement: Per medicine team Coding Level of Care Code Acute Code for Chg Fwd Diagnoses ELAINE (acute kidney injury) N17.9
[2025-02-12 20:00] VITALS: BP 119/77; PULSE 73; RESP 16; TEMP 36.8; O2SAT 99
[2025-02-13] VITALS (7 sets, daily range): BP systolic 99–136; BP diastolic 53–88; PULSE 16–82; RESP 15–18; TEMP 36.6–37.1; O2SAT 92–98
[2025-02-13 05:36] LABS: Hematocrit 37.2 % (37-53); Hemoglobin 12.60 g/dL (11.27-16.99); Mean Corpuscular HGB Conc 33.9 g/dL (30-55); Mean Corpuscular Hemoglobin 28.8 pg (27-33); Mean Corpuscular Volume 85.1 fl (82-101); Nucleated Red Blood Cells % 0 %; Platelet Count 155 10^3/cmm (157-399); Red Blood Count 4.37 10^6/uL (3.85-5.65); White Blood Count 6.42 10^3/uL (3.29-11.43)
[2025-02-13 05:53] LABS: Anion Gap 18.1 (5-19); Blood Urea Nitrogen 28 mg/dL (6-20); Calcium 9.0 mg/dL (8.5-10.5); Carbon Dioxide 16 mmol/L (22-29); Chloride 105 mmol/L (98-107); Creatinine Clr Calc Pharmacy 40.2743; Glucose 100 mg/dL (65-115); Osmolality Calculated 288 mOsm/kg (285-295); Potassium 3.1 mmol/L (3.5-5.1); Sodium 136 mmol/L (136-145)
--- OUTSIDE RECORDS SUMMARY | 2025-02-13 12:08 | XMS_ITS | Encounter Summary ---
Author Organization [facility] Address [address] [place] [address] Care Team Providers Care Metal Handler Name Role Phone Unavailable Primary Care Provider Unavailabl e Encounter Details Date Type Department Care Team (Late st Contact Info) Description 02/11/2025 External Device Data [facility] ABSTRACTION Provider, Abstract NO ADDRESS ON FILE Social History Tobacco Use Types Packs/Day Years [...] worry about transportation for future doctor visits, orange picker medication, etc.? 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 [place] [address] [place] [address] [place] [phone] Nicole Cook FNP [id number] [facility] [place] [address] documented as of this encounter Visit Diagnoses Not on filedocumented in this encounter
--- OUTSIDE RECORDS SUMMARY | 2025-02-13 12:09 | XMS_ITS | Clinical Summary ---
Author Organization [facility] Address 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
--- OUTSIDE RECORDS SUMMARY | 2025-02-13 12:09 | XMS_ITS ---
Author Organization [facility] Address [address] Reina: Epic Prelude ADT ROSALIA AMAYA KLARISSA [phone] Care Team Providers Care It Disaster Recovery Manager Name Role Phone Unavailable Primary Care [...]
--- OUTSIDE RECORDS SUMMARY | 2025-02-13 12:09 | XMS_ITS | Encounter Summary ---
Author Organization [facility] Address [address] [place] [address] Care Team Providers Care C.O.D. 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 Gender Identity Not on file Sexual Orientation Not on file documented as of this encounter Plan of Treatment Upcoming Encounters Date Type Department Care Team (Late st Contact Info) Description 04/07/2025 2:30 PM RETREAD SUPERVISOR Office Visit [facility] [place] [address] [place] [address] Aurora Solis, [facility] [address] [place] [phone] 06/24/2025 8:00 AM CDT Office Visit [facility] [place] [address] [facility] [place] [address] [place] [address] [place] [address] Nicole Cook SEWING MACHINE OPERATOR ZIPPER [address] [place] [address] documented as of this encounter Procedures [...] - 145 mmol/L 01/28/2025 1:17 PM CDT [facility] POTASSIUM 4.2 3.5 - 5.1 mmol/L 01/28/2025 1:17 PM CDT [facility] CHLORIDE 106 98 - 107 mmol/L 01/28/2025 1:17 PM CDT [facility] CO2 16(L) 22 - 29 mmol/L 01/28/2025 1:17 PM CDT [facility] CALCIUM 10.0 8.6 - 10.0 mg/dL 01/28/2025 1:17 PM CDT [facility] BUN 44(H) 6 - 20 mg/dL 01/28/2025 1:17 PM [facility] CREATININE 2.58(H) 0.67 - 1.17 mg/dL 01/28/2025 1:17 PM [facility] GLUCOSE 83 74 - 99 mg/dL 01/28/2025 1:17 PM [facility] TOTAL PROTEIN 8.5 6.6 - 8.7 g/dL 01/28/2025 1:17 PM [facility] ALBUMIN 4.7 3.5 - 5.2 g/dL 01/28/2025 1:17 PM [facility] BILIRUBIN TOTAL 0.4 0.0 - 1.2 mg/dL 01/28/2025 1:17 PM [facility] ALKALINE PHOSPHATASE 81 40 - 129 U/L 01/28/2025 1:17 PM [facility] AST 19 0 - 50 U/L 01/28/2025 1:17 PM [facility] ALT 24 0 - 50 U/L 01/28/2025 1:17 PM [facility] GFR 29(L) >=60 mL/min/1.7 3 sq meter 01/28/2025 1:17 PM [facility] Comment:eGFR calculated with 2020 CKD-EPI equation. Vegetarian diet, extremely high or low muscle mass, and may affect results. Cystatin C with Glomerular Filtration Rate is a suitable alternative for these patients. ANION GAP 13 5 - 20 mmol/L 01/28/2025 1:17 PM [facility] Blood 01/28/2025 12:5 7 PM CDT 01/28/2025 12:57 PM CDT us Nicole FINCHP CHEMISTRY ORDERABLES Final Resul t [facility] CLIA # [id number] [address] [place] [address] * (ABNORMAL) CBC WITH DIFFERENTIAL (01/28/2025 12:57 PM CDT) WBC 10.8(H) 4.2 - 9.1 K/uL 01/28/2025 1:01 PM [facility] RBC 5.01 4.63 - 6.08 M/uL 01/28/2025 1:01 PM [facility] HEMOGLOBIN 14.4 13.7 - 17.5 g/dL 01/28/2025 1:01 PM [facility] HEMATOCRIT 41.8 40.1 - 51.0 % 01/28/2025 1:01 PM [facility] MCV 83.4 79.0 - 92.2 fL 01/28/2025 1:01 [facility] MCH 28.7 25.7 - 32.2 pg 01/28/2025 1:01 [facility] MCHC 34.4 32.3 - 36.5 g/dL 01/28/2025 1:01 [facility] RDW 13.3 11.0 - 14.5 % 01/28/2025 1:01 [facility] RDW-STDEV 40.3 36.9 - 56.9 fL 01/28/2025 1:01 [facility] PLATELETS 275 130 - 400 K/uL 01/28/2025 1:01 [facility] MPV 9.8(L) 10.0 - 14.8 fL 01/28/2025 1:01 [facility] NEUTROPHILS 75(H) 34 - 68 % 01/28/2025 1:01 PM [facility] LYMPHOCYTES 11(L) 22 - 53 % 01/28/2025 1:01 PM [facility] MONOCYTES 9 5 - 12 % 01/28/2025 1:01 PM [facility] EOSINOPHILS 3 1 - 7 % 01/28/2025 1:01 PM [facility] BASOPHILS 1 0 - 1 % 01/28/2025 1:01 PM [facility] IMMATURE GRANULOCYTES 0 % 01/28/2025 1:01 [facility] NEUTROPHIL ABSOLUTE 8.05(H) 1.78 - 5.38 K/uL 01/28/2025 1:01 PM CDT [facility] LYMPHOCYTE ABSOLUTE 1.23 1.20 - 3.40 K/uL 01/28/2025 1:01 PM CDT [facility] MONOCYTE ABSOLUTE 0.99(H) 0.30 - 0.82 K/uL 01/28/2025 1:01 PM CDT [facility] EOSINOPHIL ABSOLUTE 0.37 0.04 - 0.54 K/uL 01/28/2025 1:01 PM CDT [facility] BASOPHILS ABSOLUTE 0.09(H) 0.01 - 0.08 K/uL 01/28/2025 1:01 PM CDT [facility] IMMATURE GRANULOCYTES ABSOLUTE 0.04 K/uL 01/28/2025 1:01 PM T [facility] Blood Collection / Unknown 01/28/2025 12:57 PM CDT 01/28/2025 12:57 PM CDT us Nicole Cook SEWING MACHINE OPERATOR ZIPPER HEMATOLOGY ORDERABLES Final Resu lt [facility] CLIA # [id number] [address] [place] [address] documented in this encounter Visit Diagnoses Diagnosis Malignant neoplasm of left kidney, except renal pelvis (CMS/HCC) Malignant neoplasm of kidney, except pelvis documented in this encounter
--- OUTSIDE RECORDS SUMMARY | 2025-02-13 12:09 | XMS_ITS | Clinical Summary ---
Author Organization [facility] Address [address] Reina: Epic Prelude ADT [place] [address] Care Team Providers Care Awning Frame Maker Name Role Phone Unavailable Primary Care Provider [...] as needed for nausea and vomiting 01/17/20 Active prochlorperazine maleate (COMPAZINE) 10 mg tablet [...] Encounters Date Type Department Care Team Description 02/11/2025 External Device Data STL ABSTRACTION Provider, Abstract 02/10/2025 9:13 AM CDT - 02/10/2025 2:41 PM CDT Emergency [facility] Emergency Medicine [address] [place] [phone] Tony De Paz MD Vasovagal syncope (Primary Dx); Hypokalemia; Acute renal failure superimposed on chronic kidney disease, unspecified acute renal failure type, unspecified CKD stage Discharge Disposition: Home or Self Care 02/10/2025 Travel 02/04/2025 External Device Data STL ABSTRACTION Provider, Abstract 01/30/2025 Results Follow-Up [address] [place] [place] [phone] Nicole Cook FNP CBC WITH DIFFERENTIAL, COMPREHENSIVE METABOLIC PANEL 01/30/2025 Results Follow-Up [address] [place] [place] [phone] Nicole Cook FNP US RENAL AND BLADDER 01/29/2025 11:36 AM CDT - 01/29/2025 11:59 PM CDT Hospital Encounter [facility] [address] [place] [phone] Nicole Cook FNP Discharge Disposition: Home or Self Care 01/28/2025 12:48 PM CDT - 01/28/2025 11:59 PM CDT Hospital Encounter [facility] Out[facility] Laboratory Services [place] [address] [place] [address] Nicole Cook, FINISHED HARDWARE ERECTOR Malignant neoplasm of left kidney, except renal pelvis (CMS/HCC) Discharge Disposition: Home or Self Care 01/28/2025 11:20 AM CDT Office Visit [address] [place] [address] Nicole Cook FNP Renal cell carcinoma of left kidney (CMS/HCC) (Primary Dx) 01/28/2025 Lab Requisition [facility] Laboratory Services [place] [address] [facility] [address] [place] [phone] Nicole Cook, ROSE Malignant neoplasm of left kidney, except renal pelvis (CMS/HCC) 01/20/2025 External Device Data STL ABSTRACTION Provider, Abstract 01/03/2025 Results Follow-Up [address] [place] [address] Nicole Cook FNP CBC WITH DIFFERENTIAL, COMPREHENSIVE METABOLIC PANEL 01/01/2025 Medication Prior Auth Encounter [facility] Prescription Management Dept [facility] [place] [address] Delfina Barboza, PHARMACIST 12/31/2024 External Device Data STL ABSTRACTION Provider, Abstract 12/30/2024 External Device Data STL ABSTRACTION Provider, Abstract 12/30/2024 External Device Data STL ABSTRACTION Provider, Abstract 12/25/2024 8:40 AM CDT Office Visit [facility] [address] [place] [address] Nicole Cook, FINISHED HARDWARE ERECTOR Hiatal hernia with gastroesophageal reflux (Primary Dx); [...] about transportation for future doctor visits, picker and packer medication, etc.? 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 Gender Identity Not on file Sexual Orientation [...] st Contact Info) Description 04/07/2025 2:30 PM GRINDER SET UP OPERATOR JIG Office Visit [facility]rology [address] [phone] Aurora Solis [address] [address] 06/24/2025 8:00 AM CDT Office Visit [facility] Family Medicine [place] [address] [place] [address] [place] [phone] Nicole Cook [facility] [address] [place] [address] [place] [phone] Health Maintenance Due Date Last Done Comments [...] INFLUENZA VACCINE (#1) 2024 COVID-19 Vaccine ( season) 12/15/202406/2020, 06/26/2020 Abdominal Aortic Aneurysm (AAA) Screening Completed 03/16/2022 Medical Devices Implanted Type Area Veterinary Virus Serum Inspector Device Identifier Shelf Expiration Date Model / Serial / Lot Clip Hemolok Lrg [id number] - Csc - [id number] Implanted:Qty: 1 on 08/25/2024 by Gilberto Claros MD at [facility] Clip Left: Abdomen TELEFLEX- WECK CLOSURE SYS [id number] 04/21/2029 [id number] / / [id number] Clip Hemolok Lrg [id number] - Csc - [id number] Implanted:Qty: 1 on 08/25/2024 by Gilberto Claros MD at [facility] Clip Left: Abdomen TELEFLEX- WECK CLOSURE SYS [id number] 02/28/2029 [id number] / / [id number] Clip Hemolok Lrg 357507 - Csc - [id number] Implanted:Qty: 1 on 08/25/2024 by Gilberto Claros MD at [facility] Clip Left: Abdomen TELEFLEX- WECK CLOSURE SYS [id number] 04/21/2029 [id number] / / [id number] Agent Hemostat Surgicel 3x4in 1943s - [id number] Implanted:Qty: 1 on 08/25/2024 by Gilberto Claros MD at [facility] Hemostatic Left: Abdomen J[employer]J- [employer] [id number] 02/13/2029 1943S / / [id number] Hemostatic Surgicel 6x9in 1946 - [id number] Implanted:Qty: 1 on 08/25/2024 by Gilberto Claros MD at [facility] Hemostatic Left: Abdomen J&J- [employer] [id number] 02/13/2029 1946 / / [id number] Stent Contour [id number] - [id number] Implanted:Qty: 1 on 07/01/2024 by Nicolette Wynne MD at [facility] Stent Left: Bladder [employer]/ERISA ATTORNEY [id number] 09/19/2026 [id number] 340 / / [id number] Explanted Type Area Veterinary Virus Serum Inspector Device Identifier Shelf Expiration Date Model / Serial / Lot Stent Contour [id number] - [id number] Implanted:Qty: 1 on 03/28/2022 by Nicolette Wynne MD at [facility] Explanted:Qty: 1 on 04/01/2022 by Nicolette Wynne MD at [facility] Stent Left: Ureter [employer]/ERISA ATTORNEY [id number] 10/05/2024 [id number] 50 / / [id number] Procedures Procedure Name Priority Date/Time Associated Diagnosis [...] PELVIS WO CONTRAST Stat 03/16/2022 9:30 PM GRINDER SET UP OPERATOR JIG from Last 3 Months or Most Recently Relevant to Health Maintenance Results * (ABNORMAL) BASIC METABOLIC PANEL (02/10/2025 2:10 PM CDT) SODIUM 136 136 - 145 mmol/L 02/10/2025 2:28 PM [facility] POTASSIUM 3.6 3.5 - 5.1 mmol/L 02/10/2025 2:28 PM [facility] CHLORIDE 111(H) 98 - 107 mmol/L 02/10/2025 2:28 PM [facility] CO2 15(L) 22 - 29 mmol/L 02/10/2025 2:28 PM [facility] CALCIUM 9.2 8.6 - 10.0 mg/dL 02/10/2025 2:28 PM [facility] BUN 34(H) 6 - 20 mg/dL 02/10/2025 2:28 PM [facility] CREATININE 2.99(H) 0.67 - 1.17 mg/dL 02/10/2025 2:28 PM [facility] GLUCOSE 92 74 - 99 mg/dL 02/10/2025 2:28 PM [facility] GFR 24(L) >=60 mL/min/1.7 3 sq meter 02/10/2025 2:28 PM [facility] Comment:eGFR calculated with 2020 CKD-EPI equation. Vegetarian diet, extremely high or low muscle mass, and may affect results. Cystatin C with Glomerular Filtration Rate is a suitable alternative for these patients. ANION GAP 10 5 - 20 mmol/L 02/10/2025 2:28 PM [facility] Blood BLOOD SPECIMEN / Unknown Collection / Unknown 02/10/2025 2:10 PM CDT 02/10/2025 2:10 PM CDT us Tony De Paz MD CHEMISTRY ORDERABLES Final Result Performing Organization Address [facility] Co de Phone Number [facility] CLIA # [id number] [address] [place] [address] * URINALYSIS MICROSCOPY ONLY (02/10/2025 1:54 PM CDT) WBC UA 0-2 0 - 2 /hpf 02/10/2025 2:15 PM CDT [facility] RBC UA 0-2 0 - 2 /hpf 02/10/2025 2:15 PM CDT [facility] BACTERIA UA Negative Negative /hpf 02/10/2025 2:15 PM CDT [facility] EPITHELIAL CELLS, URINE 0-5 0 - 5 /hpf 02/10/2025 2:15 PM CDT [facility] HYALINE CAST 0-2 None Seen, 0-2 /lpf 02/10/2025 2:15 PM CDT [facility] Urine URINE SPECIMEN OBTAINED BY CLEAN CATCH PROCEDURE / Unknown Collection / Unknown 02/10/2025 1:54 PM CDT 02/10/2025 1:58 PM CDT us Tony De Paz MD URINE ORDERABLES Final Res ult [facility] CLIA # [id number] [address] [place] [address] * (ABNORMAL) URINALYSIS WITH REFLEX MICROSCOPIC (02/10/2025 1:54 PM CDT) COLOR UA Yellow Pale to Dark Yellow 02/10/2025 2:15 PM CDT [facility] CLARITY UA Clear Clear 02/10/2025 2:15 PM CDT [facility] SPECIFIC GRAVITY UA 1.015 1.003 - 1.035 02/10/2025 2:15 PM CDT [facility] PH UA 7.0 5.0 - 8.0 02/10/2025 2:15 PM CDT [facility] LEUKOCYTE ESTERASE UA Negative Negative 02/10/2025 2:15 PM CDT [facility] NITRITE UA Negative Negative 02/10/2025 2:15 PM CDT [facility] PROTEIN UA 2+(A) Negative 02/10/2025 2:15 PM CDT [facility] GLUCOSE UA Negative Negative 02/10/2025 2:15 PM CDT [facility] KETONES UA Negative Negative 02/10/2025 2:15 PM CDT [facility] UROBILINOGEN UA 0.2 <2.0 mg/dL 2:15 PM CDT [facility] BILIRUBIN UA Negative Negative 02/10/2025 2:15 PM CDT [facility] BLOOD UA Trace(A) Negative 02/10/2025 2:15 PM CDT [facility] Urine URINE SPECIMEN OBTAINED BY CLEAN CATCH PROCEDURE / Unknown Collection / Unknown 02/10/2025 1:54 PM CDT 02/10/2025 1:58 PM CDT Tony De Paz MD URINE ORDERABLES Final [id number] [address] [place] [address] * CT HEAD WO CONTRAST (02/10/2025 9:57 [...] 4.2 - 9.1 K/uL 02/10/2025 9:42 AM [facility] RBC 5.17 4.63 - 6.08 M/uL 02/10/2025 9:42 AM [facility] HEMOGLOBIN 15.2 13.7 - 17.5 g/dL 02/10/2025 9:42 AM [facility] HEMATOCRIT 41.9 40.1 - 51.0 % 02/10/2025 9:42 AM [facility] MCV 81.0 79.0 - 92.2 fL 02/10/2025 9:42 AM [facility] MCH 29.4 25.7 - 32.2 pg 02/10/2025 9:42 AM [facility] MCHC 36.3 32.3 - 36.5 g/dL 02/10/2025 9:42 AM [facility] RDW 13.6 11.0 - 14.5 % 02/10/2025 9:42 AM [facility] RDW-STDEV 39.4 36.9 - 56.9 fL 02/10/2025 9:42 AM [facility] PLATELETS 183 130 - 400 K/uL 02/10/2025 9:42 AM [facility] MPV 10.8 10.0 - 14.8 fL 02/10/2025 9:42 AM [facility] NEUTROPHILS 67 34 - 68 % 02/10/2025 9:42 AM [facility] LYMPHOCYTES 15(L) 22 - 53 % 02/10/2025 9:42 AM [facility] MONOCYTES 13(H) 5 - 12 % 02/10/2025 9:42 AM [facility] EOSINOPHILS 4 1 - 7 % 02/10/2025 9:42 AM [facility] BASOPHILS 1 0 - 1 % 02/10/2025 9:42 AM [facility] IMMATURE GRANULOCYTES 0 % 02/10/2025 9:42 AM [facility] NEUTROPHIL ABSOLUTE 7.02(H) 1.78 - 5.38 K/uL 02/10/2025 9:42 AM [facility] LYMPHOCYTE ABSOLUTE 1.60 1.20 - 3.40 K/uL 02/10/2025 9:42 AM [facility] MONOCYTE ABSOLUTE 1.32(H) 0.30 - 0.82 K/uL 02/10/2025 9:42 AM [facility] EOSINOPHIL ABSOLUTE 0.43 0.04 - 0.54 K/uL 02/10/2025 9:42 AM [facility] BASOPHILS ABSOLUTE 0.08 0.01 - 0.08 K/uL 02/10/2025 9:42 AM [facility] IMMATURE GRANULOCYTES ABSOLUTE 0.04 K/uL 02/10/2025 9:42 AM [facility] Blood BLOOD SPECIMEN / Unknown Collection / Unknown 02/10/2025 9:34 AM CDT 02/10/2025 9:39 AM CDT Tony De Paz MD HEMATOLOGY ORDERABLES Jaylene l Result Performing Organization Address City/[facility]/ZIP Co de Phone Number [facility] [id number] [address] [place] [address] * MAGNESIUM LEVEL (02/10/2025 9:34 AM CDT) Pathologist [facility] MAGNESIUM 2.2 1.6 - 2.6 mg/dL 02/10/2025 10:20 AM CDT [facility] Blood BLOOD SPECIMEN / Unknown Collection / Unknown 02/10/2025 9:34 AM CDT 02/10/2025 9:39 AM CDT Tony De Paz MD CHEMISTRY ORDERABLES Final Result Performing Organization Address [facility] de Phone Number [facility] CLIA # [id number] [address] [place] [address] * (ABNORMAL) COMPREHENSIVE METABOLIC PANEL (02/10/2025 9:34 AM CDT) Only the most recent of3 resultswithin the time period is included. SODIUM 135(L) 136 - 145 mmol/L 02/10/2025 9:59 AM [facility] POTASSIUM 3.2(L) 3.5 - 5.1 mmol/L 02/10/2025 9:59 AM T [facility] CHLORIDE 109(H) 98 - 107 mmol/L 02/10/2025 9:59 AM T [facility] CO2 14(L) 22 - 29 mmol/L 02/10/2025 9:59 AM [facility] CALCIUM 9.9 8.6 - 10.0 mg/dL 02/10/2025 9:59 AM [facility] BUN 36(H) 6 - 20 mg/dL 02/10/2025 9:59 AM T [facility] CREATININE 3.30(H) 0.67 - 1.17 mg/dL 02/10/2025 9:59 AM [facility] GLUCOSE 107(H) 74 - 99 mg/dL 02/10/2025 9:59 AM [facility] TOTAL PROTEIN 8.3 6.6 - 8.7 g/dL 02/10/2025 9:59 AM [facility] ALBUMIN 4.5 3.5 - 5.2 g/dL 02/10/2025 9:59 AM [facility] BILIRUBIN TOTAL 0.6 0.0 - 1.2 mg/dL 02/10/2025 9:59 AM [facility] ALKALINE PHOSPHATASE 101 40 - 129 U/L 02/10/2025 9:59 AM [facility] AST 23 0 - 50 U/L 02/10/2025 9:59 AM [facility] ALT 39 0 - 50 U/L 02/10/2025 9:59 AM [facility] GFR 21(L) >=60 mL/min/1.7 3 sq meter 02/10/2025 9:59 AM [facility] Comment:eGFR calculated with 2020 CKD-EPI equation. Vegetarian diet, extremely high or low muscle mass, and may affect results. Cystatin C with Glomerular Filtration Rate is a suitable alternative for these patients. ANION GAP 12 5 - 20 mmol/L 02/10/2025 9:59 AM T [facility] Blood BLOOD SPECIMEN / Unknown Collection / Unknown 02/10/2025 9:34 AM CDT 02/10/2025 9:39 AM CDT us Tony De Paz MD CHEMISTRY ORDERABLES Final Result [facility] [id number] [address] [place] [address] * US RENAL AND BLADDER (01/29/2025 12:20 [...] ABDOMEN PELVIS WO CONTRAST (03/16/2022 9:30 PM GRINDER SET UP OPERATOR JIG) Anatomical Region Laterality Modality Abdomen Computed Tomogra phy 03/16/2022 9:55 PM GRINDER SET UP OPERATOR JIG Addenda Addendum by Vamshi Bonner MD on 03/22/2022 11:24 AM GRINDER SET UP OPERATOR JIG ADDENDUM: PowerScribe dictation error. Impression #4 should [...] Small hiatal hernia. Impressions 03/16/2022 10:40 PM GRINDER SET UP OPERATOR JIG IMPRESSION: 1. Left nephrolithiasis. A 15 x [...] Small hiatal hernia. Narrative 03/16/2022 10:40 PM GRINDER SET UP OPERATOR JIG EXAM: CT ABDOMEN PELVIS WO CONTRAST DIAGNOSIS/REASON [...] 6. Cholelithiasis. 7. Small hiatal hernia. us Juan Espinosa DO CT ORDERABLES Edited Re sult - Final from Last 3 Months or Most Recently Relevant to Health Maintenance [place] [id number] Advance Directives For more information, please contact: [phone] * Full Code (Latest Code Status on File) Date Activated Date Inactivated Comments 08/27/2024 8:56 AM 08/27/2024 8:47 PM * Full Code Date Activated Date Inactivated Comments 07/01/2024 11:07 AM 07/01/2024 4:06 PM * Full Code Date Activated Date Inactivated Comments 04/01/2022 7:45 AM 04/01/2022 3:11 PM
--- OUTSIDE RECORDS SUMMARY | 2025-02-13 12:09 | XMS_ITS | Encounter Summary ---
Author Organization [facility] Address [address] 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 No 2024 Housing Stability Answer [...] PM CDT Legal Sex Male 1:54 AM LICENSED FINAL EXPENSE AGENTS Gender Identity Not on file Sexual Orientation Not on file documented as of this encounter Plan of Treatment Upcoming Encounters Date Type Department Care Team (Late st Contact Info) Description 04/07/2025 2:30 PM LICENSED FINAL EXPENSE AGENTS Office Visit [facility] Urology [address] [place] [address] Aurora Solis FNP [address] [place] [address] [address] [place] [phone] 06/24/2025 8:00 AM CDT Office Visit [facility] [place] [address] [place] [address] [place] [phone] Nicole Cook FNP [address] [place] [phone] documented as of this encounter Visit Diagnoses Not on filedocumented in this encounter
--- OUTSIDE RECORDS SUMMARY | 2025-02-13 12:09 | XMS_ITS | Encounter Summary ---
Author Organization [facility] Address [address] [place] [address] Care Team Providers Care Partition Making Machine Operator Name Role Phone Unavailable Primary Care Provider Unavailabl e Encounter Details Date Type Department Care Team (Latest Contact Info) Description 02/05/2007 Outpatient Historical [facility] Family Medicine- [address] [place] [address] [place] NO ADDRESS ON FILE Pain in Joint, Shoulder Region (Primary Dx); Skin Sensation Disturb; Unspecified Essential Hypertension Social History Tobacco Use Types Packs/Day Years Used Date Smoking Tobacco: Never Assessed Sex and Gender Information Value Date Recorded Sex Assigned at Not on file 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
--- NOTE | 2025-02-13 16:04 | PM.PN ---
Subjective Subjective: Feeling slightly better. Getting some rest this morning. Vitals/I&O/Wt Last Vital Signs Temp 98.7 F 02/13/25 11:28 Pulse 78 02/13/25 11:28 Resp 17 02/13/25 11:28 BP 103/68 02/13/25 11:28 Pulse Ox 97 02/13/25 11:28 O2 Del Method Room Air 02/13/25 11:28 02/13/25 02/13/25 02/13/25 06:59 14:59 22:59 Intake Total 1310 / 2790 480 / 480 Output Total 125 / 125 600 / 600 Balance 1185 / 2665 -120 / -120 Weight last 48 hrs Weight 116.12 kg Weight 116.176 kg Weight 114.305 kg Physical Exam Narrative: Accompanied by his . Sleeping. Wakes up to voice. Const: COMMON NORMALS: patient oriented x3 and alert GENERAL APPEARANCE: cooperative ORIENTATION/CONSCIOUSNESS: Yes awake HENMT: COMMON NORMALS: oropharynx normal Neck/C-Spine: COMMON NORMALS: no JVD Resp: COMMON NORMALS: normal respiratory effort and clear to auscultation bilaterally AUSCULTATION: clear to auscultation bilaterally Cardio: COMMON NORMALS: no JVD, regular rhythm, S1 normal heart sound present, S2 normal heart sound present and No murmurs present (Cardio) RHYTHM: regular rhythm HEART SOUNDS: S1 normal heart sound present and S2 normal heart sound present GI: COMMON NORMALS: Normal to inspection, nondistended, normoactive bowel sounds present, Soft to palpation and non-tender PALPATION: Yes Soft to palpation Extremity: COMMON NORMALS: no joint enlargement and no pedal edema Neuro: COMMON NORMALS: patient oriented x3 and moves all extremities SENSORIUM/ORIENTATION: Yes alert Skin: COMMON NORMALS: no rashes or lesions noted GENERAL SKIN EXAM: no rashes or lesions noted Data 02/13/25 05:06 02/13/25 05:06 Micro: Microbiology 02/12/25 12:09 Blood Culture - Preliminary Blood NEGATIVE TO DATE 02/12/25 12:11 Blood Culture - Preliminary Blood NEGATIVE TO DATE A&P Assessment and plan 1. ELAINE (acute kidney injury): Reviewed intake and output, chemistry, noted BUN 28, creatinine slightly down to 2.8. On IV hydration. Reviewed nephrology note, reviewed renal ultrasound, urine electrolytes are requested. Follow-up chemistry. Received potassium for mild hypokalemia. Discussed with patient and family and further discussed with nephrology, renal function will be followed up, nephrology further considering whether may end up requiring steroids with consideration of possible biopsy in that case to confirm whether interstitial nephritis may be the cause secondary to Keytruda. Patient and family in agreement with plan. Repeat chemistry requested. Monitor for risk of fluid overload. Discussed with nursing, residential case manager. Worsening renal function noted on recent labs from endocrinology/oncology. Urinalysis reportedly normal (no hematuria). Kidney ultrasound showed no obstruction; described as overall fine with possible mild damage. Declined oral intake and lower blood pressures (110?117 vs baseline 130s) may contribute. Potential relation to immunotherapy. - Hold Keytruda (pembrolizumab) and reassess. - Recheck labs overnight to ensure no worsening after fluid challenge - Monitor I&O - Monitor blood pressures. - Ensure adequate urine output during observation. - Follow up with primary care physician (PCP). - Follow up with oncology to discuss next steps. 2. Syncope: Without further syncope, blood pressure slightly lower this morning at 99/62, but orthostatics were good, without decrease with standing. Echocardiogram is ordered, images obtained, pending interpretation by forging machine hand. Two episodes of passing out on Sunday while on the toilet with head impact; evaluated at [facility] and given intravenous fluids with potassium. - Follow-up blood pressures. Avoid hypotension. - Reviewed EKG. Noted incomplete RBBB, LAF. Requested to monitor on telemetry. - Pending TTE - Monitor on telemetry Plan: Decreased urinary stream : Reports weaker urine stream and possibly less urine volume without difficulty initiating urination. - Ensure producing urine during observation. - Monitor I&O Fatigue : Reports feeling very tired over the last several days. Further workup as above. Constipation : Constipation attributed to treatment. Kidney cancer status post nephrectomy : Cancer reportedly limited to one kidney; nephrectomy performed. Receiving immunotherapy as precaution; symptoms worsened after second treatment. - Hold further Keytruda pending reassessment. - Follow up with oncology to discuss next steps. Follow-up : Care coordination after discharge. - Follow up with PCP. - Follow up with oncology and nephrology. PDMP PDMP Reviewed: Not Reviewed Attestations Medical Necessity Statement*: Continue hospitalization for further reassessment of ELAINE and gentleman on Keytruda, assessment with possibility of AIN, assessment after syncope. and High MDM includes amount and/or complexity of data reviewed/ordered [ previous or external records, resulted lab(s)/test(s), ordered lab(s)/test(s) and other healthcare professional discussion] and described risk of complication, morbidity or mortality of management as documented Diagnoses ELAINE (acute kidney injury) N17.9 Syncope R55
--- NOTE | 2025-02-13 16:28 | PM.PN ---
Subjective Subjective: feels tired Medications: Reviewed: Yes Vitals/I&O/Wt Last Vital Signs Temp 98.7 F 02/13/25 11:28 Pulse 78 02/13/25 11:28 Resp 17 02/13/25 11:28 BP 103/68 02/13/25 11:28 Pulse Ox 97 02/13/25 11:28 O2 Del Method Room Air 02/13/25 11:28 02/13/25 02/13/25 02/13/25 06:59 14:59 22:59 Intake Total 1310 / 2790 480 / 480 Output Total 125 / 125 600 / 600 Balance 1185 / 2665 -120 / -120 Weight last 48 hrs Weight 116.12 kg Weight 116.176 kg Weight 114.305 kg Physical Exam Narrative: awake , alert , no distress No JVD PEERLA S1S2 RRR lungs clear Abd sodt , non tender No edema no skin rash Data 02/13/25 05:06 02/13/25 05:06 Micro: Microbiology 02/12/25 12:09 Blood Culture - Preliminary Blood NEGATIVE TO DATE 02/12/25 12:11 Blood Culture - Preliminary Blood NEGATIVE TO DATE A&P Assessment and plan 1. ELAINE (acute kidney injury): 1. Acute on chronic kidney disease stage III: Baseline creatinine seems to be in the 1.2-1.3 range, creatinine has worsened to 3 range now. Differential diagnosis-prerenal due to decreased intake, immune mediated AIN due to Keytruda (noted progressive rising creatinine )-though there was no peripheral eosinophilia, no sterile pyuria, rule out obstruction. Check urine electrolytes and urine eosinophils-, -nornal check renal ultrasound on right - continue bicarbonate drip, cr slightly better - watch renal fxn closely , If no sig improvement creatinine , will initiate steroids and may consider kidney biopsy(cautious decision due to solitary kidney) - Avoid IV contrast, no acute indication for dialysis 2. Renal cell carcinoma: Status post left direct nephrectomy and started on Keytruda status post 2 cycles 3. Metabolic acidosis: Started on bicarbonate drip 4. Hypokalemia, replete Patient evaluated using audiovisual cart. Time spent 40 minutes. PDMP PDMP Reviewed: Not Reviewed Attestations Medical Necessity Statement*: per [facility] Coding Level of Care Code Acute Code for [facility] Diagnoses ELAINE (acute kidney injury) N17.9
[2025-02-13] MEDS: ondansetron 2 mg/ML SDV 2 mL 4 MG IVP (21:02)
[2025-02-14] VITALS (9 sets, daily range): BP systolic 103–131; BP diastolic 66–75; PULSE 61–71; RESP 14–19; TEMP 36.5–37.5; O2SAT 94–99
[2025-02-14 05:53] LABS: Hematocrit 34.4 % (37-53); Hemoglobin 12.30 g/dL (11.27-16.99); Mean Corpuscular HGB Conc 35.8 g/dL (30-55); Mean Corpuscular Hemoglobin 29.4 pg (27-33); Mean Corpuscular Volume 82.3 fl (82-101); Nucleated Red Blood Cells % 0 %; Platelet Count 167 10^3/cmm (157-399); Red Blood Count 4.18 10^6/uL (3.85-5.65); White Blood Count 5.98 10^3/uL (3.29-11.43)
[2025-02-14 06:16] LABS: Anion Gap 12.8 (5-19); Blood Urea Nitrogen 23 mg/dL (6-20); Calcium 9.0 mg/dL (8.5-10.5); Carbon Dioxide 21 mmol/L (22-29); Chloride 105 mmol/L (98-107); Creatinine Clr Calc Pharmacy 41.6196; Glucose 109 mg/dL (65-115); Osmolality Calculated 286 mOsm/kg (285-295); Sodium 136 mmol/L (136-145)
[2025-02-14 06:26] LABS: Potassium 2.8 mmol/L (3.5-5.1)
--- NOTE | 2025-02-14 12:11 | PM.PN ---
Subjective Subjective: feels better Medications: Reviewed: Yes Vitals/I&O/Wt Last Vital Signs Temp 98.0 F 02/14/25 11:45 Pulse 61 02/14/25 11:45 Resp 14 02/14/25 11:45 BP 103/66 02/14/25 11:45 Pulse Ox 98 02/14/25 11:45 O2 Del Method Room Air 02/14/25 11:45 02/13/25 02/14/25 02/14/25 22:59 06:59 14:59 Intake Total 1390 / 1870 1390 / 1390 Output Total 1250 / 1850 620 / 2470 Balance 140 / 20 -620 / -600 1390 / 1390 Weight last 48 hrs Weight 115.349 kg Weight 116.12 kg Weight 116.176 kg Physical Exam Narrative: awake , alert , no distress No JVD PEERLA S1S2 RRR lungs clear Abd sodt , non tender No edema no skin rash Data 02/14/25 05:26 02/14/25 05:26 Micro: Microbiology 02/12/25 12:09 Blood Culture - Preliminary Blood NEGATIVE TO DATE 02/12/25 12:11 Blood Culture - Preliminary Blood NEGATIVE TO DATE A&P Assessment and plan 1. ELAINE (acute kidney injury): 1. Acute on chronic kidney disease stage III: Baseline creatinine seems to be in the 1.2-1.3 range, creatinine has worsened to 3 range now. Differential diagnosis-prerenal due to decreased intake, immune mediated AIN due to Keytruda (noted progressive rising creatinine )-though there was no peripheral eosinophilia, no sterile pyuria, Check urine electrolytes and urine eosinophils-, -nornal check renal ultrasound on right - s/p bicarbonate drip-- switched NS , cr slightly better - watch renal fxn closely , If no sig improvement creatinine , will initiate steroids and may consider kidney biopsy(cautious decision due to solitary kidney) - Avoid IV contrast, no acute indication for dialysis 2. Renal cell carcinoma: Status post left direct nephrectomy and started on Keytruda status post 2 cycles 3. Metabolic acidosis: s/p bicarbonate drip, switched to NS 4. Hypokalemia, replete Patient evaluated using audiovisual cart. Time spent 40 minutes. PDMP PDMP Reviewed: Not Reviewed Attestations Medical Necessity Statement*: per medicine Coding Level of Care Code Acute Code for [facility] Fwd Diagnoses ELAINE (acute kidney injury) N17.9
--- NOTE | 2025-02-14 14:17 | P.PN_ITS ---
Subjective 2 Subjective: Patient was seen this morning, currently alert oriented x 3, following all commands, discussed improvement in renal function, discussed echocardiogram findings, will discuss case with cardiology Vitals/I&O/Wt Last Vital Signs Temp 98.0 F 02/14/25 11:45 Pulse 61 02/14/25 11:45 Resp 14 02/14/25 11:45 BP 103/66 02/14/25 11:45 Pulse Ox 98 02/14/25 11:45 O2 Del Method Room Air 02/14/25 11:45 02/13/25 02/14/25 02/14/25 22:59 06:59 14:59 Intake Total 1390 / 1870 1510 / 1510 Output Total 1250 / 1850 620 / 2470 Balance 140 / 20 -620 / -600 1510 / 1510 Weight last 48 hrs Weight 115.349 kg Weight 116.12 kg Weight 116.176 kg Physical Exam 2 Const: COMMON NORMALS: no acute distress and patient oriented x3 Resp: COMMON NORMALS: normal respiratory effort, No retractions, No use of accessory muscles and clear to auscultation bilaterally AUSCULTATION: clear to auscultation bilaterally Cardio: COMMON NORMALS: regular rate, regular rhythm, S1 normal heart sound present and S2 normal heart sound present RATE: regular rate RHYTHM: r egular rhythm HEART SOUNDS: S1 normal heart sound present and S2 normal heart sound present GI: COMMON NORMALS: Normal to inspection, nondistended, normoactive bowel sounds present Extremity: COMMON NORMALS: no pedal edema Neuro: COMMON NORMALS: patient oriented x3 Psych: COMMON NORMALS: mental status grossly normal Data 02/14/25 05:26 02/14/25 05:26 Micro: Microbiology 02/12/25 12:09 Blood Culture - Preliminary Blood NEGATIVE TO DATE 02/12/25 12:11 Blood Culture - Preliminary Blood NEGATIVE TO DATE A&P Assessment and plan 1. ELAINE (acute kidney injury): - Creatinine 2.7 - Hold Keytruda (pembrolizumab) and reassess. - Monitor I&O - Monitor blood pressures. - Ensure adequate urine output during observation. - Follow up with primary care physician (PCP). - Nephrology consulted 2. Syncope: - Monitor Plan: Cardiac echo CONCLUSIONS Normal left ventricular size, systolic function and wall thickness, with no regional wall motion abnormalities. Left ventricular ejection fraction is estimated at 60%. Grade I/IV diastolic dysfunction (abnormal relaxation filling pattern), normal to mildly elevated filling pressures. Mildly thickened mitral valve. No mitral valve stenosis. There appeared to be 2.25 cm long subvalvular apparatus noted possible ruptured chordae, cannot rule out vegetation if clinically indicated transesophageal echocardiogram is better modality to assess Mild tricuspid valve regurgitation. There is no pericardial effusion. Right atrial pressure is around 5 mm of mercury. - Given cardiac findings as above, we will do a discuss with cardiology Fatigue : Monitor Constipation : Constipation attributed to treatment. Kidney cancer status post nephrectomy : Status post nephrectomy receiving immunotherapy as precaution; symptoms worsened after second treatment. - Hold further Keytruda pending reassessment. - Follow up with oncology to discuss next steps. Follow-up : Care coordination after discharge. - Follow up with PCP. - Follow up with oncology and nephrology. PDMP PDMP Reviewed: Not Reviewed Attestations 2 Medical Necessity Statement*: Patient requires admission for ELAINE, echocardiogram findings Diagnoses ELAINE (acute kidney injury) N17.9 Syncope R55
[2025-02-14 16:27] LABS: Anion Gap 13.3 (5-19); Blood Urea Nitrogen 22 mg/dL (6-20); Calcium 8.6 mg/dL (8.5-10.5); Carbon Dioxide 19 mmol/L (22-29); Chloride 106 mmol/L (98-107); Creatinine Clr Calc Pharmacy 41.6196; Glucose 92 mg/dL (65-115); Osmolality Calculated 283 mOsm/kg (285-295); Potassium 3.3 mmol/L (3.5-5.1); Sodium 135 mmol/L (136-145)
[2025-02-14 17:19] LABS: Urine Random Chloride 73 mmol/L; Urine Random Sodium 90 mmol/L
[2025-02-14 17:27] LABS: Urine Eosinophil Count 0 (0-0)
--- NOTE | 2025-02-14 18:09 | PM.CONSULT ---
Providers/Reason For Consult Consulting Physician/Specialty*: Oswaldo Adam MD Reason for Consult*: Abnormal echocardiogram Requesting Physician: Edison Campbell MD Attending Physician: Edison Campbell MD Primary Care Provider: Nicole Cook History of Present Illness History of Present Illness Everardo Greene is a 54 year old male with a history of renal cancer status post nephrectomy and subsequent immunotherapy with Keytruda. The patient has not been feeling well over the past week and had 2 syncopal episodes while in the bathroom on the toilet. He presented to the emergency room where he was found to have severe hypokalemia (2.7). The patient was given IV fluids with potassium. He was also found to have acute kidney injury and was admitted for further evaluation. Patient has been receiving IV fluids. Echocardiogram performed this hospitalization showed an echogenic structure in the left ventricular outflow tract region for which we were asked to consult. The patient denies having any fevers, chills, shortness of breath or chest pain. Medications/Allergies Home Medications ?Medication ?Instructions ?Recorded ?Confirmed ?Last Taken ?Type ondansetron HCl 8 mg tablet 8 mg PO .COMPLEX PRN nausea and 01/16/25 02/12/25 Unknown Rx vomiting #60 tabs prochlorperazine maleate 10 mg 10 mg PO Q6H PRN nausea and 01/16/25 02/12/25 Unknown Rx tablet (Compazine) vomiting #30 tabs omeprazole 40 mg capsule,delayed 40 mg PO DAILY 01/20/25 02/12/25 02/11/25 History release acetaminophen 500 mg tablet 500 mg PO QID PRN Fever Or Pain 02/12/25 02/12/25 Unknown History (Tylenol Extra Strength) potassium chloride 10 mEq 10 meq PO DAILY 02/12/25 02/12/25 02/11/25 History capsule,extended release sennosides 8.6 mg tablet (Senokot) 8.6 mg PO DAILY PRN Constipation 02/12/25 02/12/25 02/11/25 History Allergies Allergy/AdvReac Type Severity Reaction Status Date / Time No Known Allergies Allergy Verified 02/12/25 09:43 Current Medications Generic Name Dose Route Start Last Admin Trade Name Freq PRN Reason Stop Dose Admin Sodium Chloride 1,000 mls @ 100 mls/hr 02/14/25 06:45 02/14/25 16:29 Sodium Chloride 0.9% IV 100 mls/hr .Q10H LOULOU Administration Ondansetron HCl 4 mg 02/13/25 20:38 02/13/25 21:02 Ondansetron 2 Mg/Ml Sdv 2 Ml IVP 4 mg Q6H PRN Administration NAUSEA AND VOMITING Tramadol HCl 50 mg 02/14/25 13:46 02/14/25 14:10 Tramadol 50 Mg Tablet PO 50 mg Q6H PRN Administration MODERATE PAIN PFSH Acute PFSH: Medical History (Updated 02/14/25 @ 18:27 by Oswaldo Adam MD) Renal cell carcinoma of left kidney No pertinent past medical history Surgical History (Updated 02/12/25 @ 15:27 by Panchito Carter MD) History of left radical nephrectomy Social History (Updated 02/12/25 @ 15:27 by Panchito Carter MD) Smoking and tobacco/nicotine status: never used tobacco/nicotine Alcohol intake: never Substance/Drug Use: never Vitals/I&O/Wt Last Vital Signs Temp 98.0 F 02/14/25 16:00 Pulse 67 02/14/25 16:00 Resp 16 02/14/25 16:00 BP 124/75 02/14/25 16:00 Pulse Ox 94 02/14/25 16:00 O2 Del Method Room Air 02/14/25 16:00 02/14/25 02/14/25 02/14/25 06:59 14:59 22:59 Intake Total 1750 / 1750 963.333 / 2713.333 Output Total 620 / 2470 Balance -620 / -600 1750 / 1750 963.333 / 2713.333 Weight last 48 hrs Weight 254 lb 4.8 oz Weight 256 lb Physical Exam Narrative: General: In no acute distress Neck: No jugular venous distention or carotid bruits Heart: Normal S1 and S2 with a regular rate and rhythm, no cardiac murmurs Lungs: Normal respiratory effort with no use of intercostal muscles, clear lungs sounds to auscultation Extremities: No lower extremity edema Neuro: Alert and oriented x 3 Data 02/14/25 05:26 02/14/25 15:47 Other data: EKG 02/12/2025: Normal sinus rhythm, incomplete right bundle branch block, left anterior fascicular block Echo 02/12/2025: The echocardiogram images were personally reviewed and interpreted by myself. There is normal ventricular cavity size and systolic function. Left ventricular ejection fraction approximately 70%. In the four-chamber apical view there is an echogenic structure measuring 2.1 cm x 1.6 cm in the region of the left ventricular outflow tract moving in parallel with the anterior mitral valve leaflet. It is not clear with this structure is but possibilities include vegetation, cardiac mass, hypertrophied papillary muscle, thickened and redundant tendae chordinae. Doppler in the left ventricular outflow tract shows no significant pressure gradient. There is evidence of mild to moderate concentric left ventricular hypertrophy with the basal septum measuring 1.5 cm and the posterior wall measuring 1.3 cm. A&P Assessment and plan 1. Syncope: 2. ELAINE (acute kidney injury): 3. Abnormal echocardiogram: 4. Left ventricular hypertrophy: Plan: - If the patient has no history of systemic hypertension other causes of left ventricular hypertrophy should be considered including genetic hypertrophic cardiomyopathy or infiltrative cardiomyopathy. ? A transesophageal echocardiogram is recommended to better visualize the echogenic structure in the left ventricular outflow tract. ? Of note, there is no pressure gradient demonstrated on Doppler on the surface echocardiogram - We will work with the nursing supervisor fur dressing and anesthesia to schedule a transesophageal echocardiogram for Sunday. PDMP PDMP Reviewed: Not Reviewed Coding Level of Care Code 04494 Diagnoses Syncope R55 ELAINE (acute kidney injury) N17.9 Abnormal echocardiogram R93.1 Left ventricular hypertrophy I51.7
[2025-02-14] MEDS: ondansetron 2 mg/ML SDV 2 mL 4 MG IVP (19:31)
[2025-02-15] VITALS (9 sets, daily range): BP systolic 104–156; BP diastolic 62–78; PULSE 66–82; RESP 16–17; TEMP 36.7–37.6; O2SAT 93–98
[2025-02-15 05:49] LABS: Hematocrit 33.4 % (37-53); Hemoglobin 11.50 g/dL (11.27-16.99); Mean Corpuscular HGB Conc 34.4 g/dL (30-55); Mean Corpuscular Hemoglobin 28.6 pg (27-33); Mean Corpuscular Volume 83.1 fl (82-101); Nucleated Red Blood Cells % 0 %; Platelet Count 176 10^3/cmm (157-399); Red Blood Count 4.02 10^6/uL (3.85-5.65); White Blood Count 5.33 10^3/uL (3.29-11.43)
[2025-02-15 06:03] LABS: Anion Gap 12.2 (5-19); Blood Urea Nitrogen 19 mg/dL (6-20); Calcium 8.9 mg/dL (8.5-10.5); Carbon Dioxide 19 mmol/L (22-29); Chloride 111 mmol/L (98-107); Creatinine Clr Calc Pharmacy 43.1952; Glucose 85 mg/dL (65-115); Osmolality Calculated 290 mOsm/kg (285-295); Potassium 3.2 mmol/L (3.5-5.1); Sodium 139 mmol/L (136-145)
--- NOTE | 2025-02-15 10:20 | P.PN_ITS ---
Subjective 2 Subjective: feels better Medications: Reviewed: Yes Vitals/I&O/Wt Last Vital Signs Temp 98.0 F 02/15/25 07:08 Pulse 71 02/15/25 07:08 Resp 17 02/15/25 07:08 BP 156/75 02/15/25 07:08 Pulse Ox 98 02/15/25 07:08 O2 Del Method Room Air 02/15/25 07:08 02/14/25 02/15/25 02/15/25 22:59 05:59 14:59 Intake Total 963.333 / 2713.333 1185 / 3898.333 1070 / 1070 Output Total 550 / 550 550 / 550 Balance 963.333 / 2713.333 635 / 3348.333 520 / 520 Weight last 48 hrs Weight 115.212 kg Weight 115.349 kg Physical Exam 2 Narrative: awake , alert , no distress No JVD PEERLA S1S2 RRR lungs clear Abd sodt , non tender No edema no skin rash Data 02/15/25 05:18 02/15/25 05:18 A&P Assessment and plan 1. ELAINE (acute kidney injury): 1. Acute on chronic kidney disease stage III: Baseline creatinine seems to be in the 1.2-1.3 range, creatinine has worsened to 3 range now. Differential diagnosis-prerenal due to decreased intake, immune mediated AIN due to Keytruda (noted progressive rising creatinine )-though there was no peripheral eosinophilia, no sterile pyuria, urine eosinophils- neg, -nornal check renal ultrasound on right - s/p bicarbonate drip-- switched NS , cr slightly better , stop IVFs today - watch renal fxn closely , If no sig improvement creatinine , will initiate steroids and may consider kidney biopsy(cautious decision due to solitary kidney) - Avoid IV contrast, no acute indication for dialysis 2. Renal cell carcinoma: Status post left direct nephrectomy and started on Keytruda status post 2 cycles 3. Metabolic acidosis: s/p bicarbonate drip, switched to NS 4. Hypokalemia, repleted 5. abnrmal ECHo , plan for CUONG 6. Proteinura , ordered UPCR , SPEP , UPEP and free light chains Patient evaluated using audiovisual cart. Time spent 40 minutes. PDMP PDMP Reviewed: Not Reviewed Attestations 2 Medical Necessity Statement*: per medicne Coding Level of Care Code Acute Code for [facility] Diagnoses ELAINE (acute kidney injury) N17.9
--- NOTE | 2025-02-15 13:46 | P.PN_ITS ---
Subjective 2 Subjective: Patient is alert to x 3, following all commands, has no pain complaints, no chest pain, no lightheadedness, no dizziness Vitals/I&O/Wt Last Vital Signs Temp 98.2 F 02/15/25 11:21 Pulse 76 02/15/25 11:21 Resp 17 02/15/25 11:21 BP 122/78 02/15/25 11:21 Pulse Ox 97 02/15/25 11:21 O2 Del Method Room Air 02/15/25 11:21 02/14/25 02/15/25 02/15/25 22:59 05:59 14:59 Intake Total 963.333 / 2713.333 1185 / 3898.333 1550 / 1550 Output Total 550 / 550 975 / 975 Balance 963.333 / 2713.333 635 / 3348.333 575 / 575 Weight last 48 hrs Weight 115.212 kg Weight 115.349 kg Physical Exam 2 Const: COMMON NORMALS: no acute distress and patient oriented x3 Resp: COMMON NORMALS: normal respiratory effort, No retractions, No use of accessory muscles and clear to auscultation bilaterally AUSCULTATION: clear to auscultation bilaterally Cardio: COMMON NORMALS: regular rate, regular rhythm, S1 normal heart sound present and S2 normal heart sound present RATE: regular rate RHYTHM: r egular rhythm HEART SOUNDS: S1 normal heart sound present and S2 normal heart sound present GI: COMMON NORMALS: Normal to inspection, nondistended, normoactive bowel sounds present and non-tender Extremity: COMMON NORMALS: no pedal edema Neuro: COMMON NORMALS: patient oriented x3 Psych: COMMON NORMALS: mental status grossly normal Data 02/15/25 05:18 02/15/25 05:18 A&P Assessment and plan 1. ELAINE (acute kidney injury): - Creatinine 2.6 - Hold Keytruda (pembrolizumab) and reassess. - Monitor I&O - Monitor blood pressures. - Ensure adequate urine output during observation. - Follow up with primary care physician (PCP). - Nephrology consulted 2. Syncope: - Monitor Plan: Cardiac echo CONCLUSIONS Normal left ventricular size, systolic function and wall thickness, with no regional wall motion abnormalities. Left ventricular ejection fraction is estimated at 60%. Grade I/IV diastolic dysfunction (abnormal relaxation filling pattern), normal to mildly elevated filling pressures. Mildly thickened mitral valve. No mitral valve stenosis. There appeared to be 2.25 cm long subvalvular apparatus noted possible ruptured chordae, cannot rule out vegetation if clinically indicated transesophageal echocardiogram is better modality to assess Mild tricuspid valve regurgitation. There is no pericardial effusion. Right atrial pressure is around 5 mm of mercury. - Failure to consulted plans on transesophageal echocardiogram tomorrow Fatigue : Monitor Constipation : Constipation attributed to treatment. Kidney cancer status post nephrectomy : Status post nephrectomy receiving immunotherapy as precaution; symptoms worsened after second treatment. - Hold further Keytruda pending reassessment. - Follow up with oncology to discuss next steps. Follow-up : Care coordination after discharge. - Follow up with PCP. - Follow up with oncology and nephrology. PDMP PDMP Reviewed: Not Reviewed Attestations 2 Medical Necessity Statement*: Patient requires hospital care for ELAINE, syncope, cardiac echocardiogram findings Diagnoses ELAINE (acute kidney injury) N17.9 Syncope R55
[2025-02-15 15:38] LABS: Creatinine Urine, Random 94 mg/dL (39-259)
[2025-02-15] MEDS: pantoprazole 40 mg SDV IVP (19:21)
[2025-02-16] VITALS (11 sets, daily range): BP systolic 107–144; BP diastolic 55–93; PULSE 54–81; RESP 16–18; TEMP 36.7–37.1; O2SAT 93–100
[2025-02-16 06:02] LABS: Hematocrit 37.0 % (37-53); Hemoglobin 12.70 g/dL (11.27-16.99); Mean Corpuscular HGB Conc 34.3 g/dL (30-55); Mean Corpuscular Hemoglobin 28.6 pg (27-33); Mean Corpuscular Volume 83.3 fl (82-101); Nucleated Red Blood Cells % 0 %; Platelet Count 198 10^3/cmm (157-399); Red Blood Count 4.44 10^6/uL (3.85-5.65); White Blood Count 6.27 10^3/uL (3.29-11.43)
[2025-02-16] MEDS: pantoprazole 40 mg SDV IVP (06:04)
[2025-02-16 06:23] LABS: Alanine Aminotransferase 21 U/L (0-41); Albumin Level 3.9 g/dL (3.5-5.2); Alkaline Phosphatase 79 U/L (40-130); Anion Gap 15.4 (5-19); Aspartate Amino Transferase 20 U/L (0-40); Blood Urea Nitrogen 15 mg/dL (6-20); Calcium 9.4 mg/dL (8.5-10.5); Carbon Dioxide 16 mmol/L (22-29); Chloride 109 mmol/L (98-107); Creatinine Clr Calc Pharmacy 43.1952; Globulin 3.1 g/dL (1.3-4.6); Glucose 87 mg/dL (65-115); Osmolality Calculated 284 mOsm/kg (285-295); Potassium 3.4 mmol/L (3.5-5.1); Sodium 137 mmol/L (136-145); Total Protein 7.0 g/dL (6.6-8.7)
[2025-02-16 06:26] LABS: Procalcitonin 0.13 ng/mL (0-0.5)
--- NOTE | 2025-02-16 07:29 | ANES.PREANE2 ---
Pre-Anesthetic Assessment Height/Weight: Height 6 ft 1 in Weight 255 lb 4.8 oz Temp Pulse Resp BP Pulse Ox O2 Del Method 98.7 F 76 17 144/93 97 Room Air 02/16/25 07:25 02/16/25 07:25 02/16/25 07:25 02/16/25 07:25 02/16/25 07:25 02/16/25 07:25 Preop Diagnosis: Questionable vegetation on TTE Operation Date: 02/16/25 07:30 Proposed Procedures p CUONG(Not Applicable) - Oswaldo Adam MD Was Beta Terry taken within 24 hours: N/A Was Clonidine taken within 24 hours: N/A Last intake: Intake Last Liquid Date 02/15/25 Last Liquid Time 23:59 Last Solid Date 02/15/25 Last Solid Time 20:30 Social No alcohol Exam alert, oriented x 3, clear to auscultation bilaterally and regular rate & rhythm Airway Submandibular: within normal limits Cervical ROM: within normal limits Mallampati: Class III Anesthetic Plan ASA status: 3 Anesthesia: Choice Other: No prior issues with anesthesia NPO since yesterday evening Patient initially admitted 02/12/2025 due to ELAINE Patient reports passing out on Sunday of last week while on the toilet S/p nephrectomy earlier this year Patient has been on Keytruda and states that this has been hurting his kidneys Denies any known cardiac issues GERD, controlled with omeprazole Labs from today reviewed, NA 137, K+ 3.4, CR 2.6 Medications/Allergies Home Medications ?Medication ?Instructions ?Recorded ?Confirmed ?Last Taken ?Type ondansetron HCl 8 mg tablet 8 mg PO .COMPLEX PRN nausea and 01/16/25 02/12/25 Unknown Rx vomiting #60 tabs prochlorperazine maleate 10 mg 10 mg PO Q6H PRN nausea and 01/16/25 02/12/25 Unknown Rx tablet (Compazine) vomiting #30 tabs omeprazole 40 mg capsule,delayed 40 mg PO DAILY 01/20/25 02/12/25 02/11/25 History release acetaminophen 500 mg tablet 500 mg PO QID PRN Fever Or Pain 02/12/25 02/12/25 Unknown History (Tylenol Extra Strength) potassium chloride 10 mEq 10 meq PO DAILY 02/12/25 02/12/25 02/11/25 History capsule,extended release sennosides 8.6 mg tablet (Senokot) 8.6 mg PO DAILY PRN Constipation 02/12/25 02/12/25 02/11/25 History Allergies Allergy/AdvReac Type Severity Reaction Status Date / Time No Known Allergies Allergy Verified 02/12/25 09:43 Current Medications Generic Name Dose Route Start Last Admin Trade Name Freq PRN Reason Stop Dose Admin Ondansetron HCl 4 mg 02/13/25 20:38 02/14/25 19:31 Ondansetron 2 Mg/Ml Sdv 2 Ml IVP 4 mg Q6H PRN Administration NAUSEA AND VOMITING Pantoprazole Sodium 40 mg 02/15/25 19:00 02/16/25 06:04 Pantoprazole 40 Mg Sdv IVP 40 mg DAILY LOULOU Administration Tramadol HCl 50 mg 02/14/25 13:46 02/14/25 14:10 Tramadol 50 Mg Tablet PO 50 mg Q6H PRN Administration MODERATE PAIN PFSH Anesthesia Medical History (Updated 02/14/25 @ 18:27 by Oswaldo Adam MD) Renal cell carcinoma of left kidney No pertinent past medical history Surgical History (Updated 02/12/25 @ 15:27 by Panchito Carter MD) History of left radical nephrectomy Social History (Updated 02/12/25 @ 15:27 by Panchito Carter MD) Smoking and tobacco/nicotine status: never used tobacco/nicotine Alcohol intake: never Substance/Drug Use: never Data Anesthesia 02/16/25 05:41 02/16/25 05:41 Short CBC 02/15/25 02/16/25 Range/Units 05:18 05:41 WBC 5.33 6.27 (3.29-11.43) 10^3/uL Hgb 11.50 12.70 (11.27-16.99) g/dL Hct 33.4 L 37.0 (37-53) % MCV 83.1 83.3 (82-101) fl Plt Count 176 198 (157-399) 10^3/cmm Neut % (Auto) 59.4 62.0 % Neut # (Auto) 3.17 3.89 (1.8-7.7) 10^3/uL BMP 02/14/25 02/15/25 02/16/25 15:47 05:18 05:41 Sodium 135 L 139 137 Potassium 3.3 L 3.2 L 3.4 L Chloride 106 111 H 109 H Carbon Dioxide 19 L 19 L 16 L BUN 22 H 19 15 Creatinine 2.7 H 2.6 H 2.6 H Glucose 92 85 87 Calcium 8.6 8.9 9.4 Liver Function 02/16/25 Range/Units 05:41 Total Bilirubin 0.4 (0.15-1.2) mg/dL AST 20 (0-40) U/L ALT 21 (0-41) U/L Alkaline Phosphatase 79 (40-130) U/L Albumin 3.9 (3.5-5.2) g/dL Coags 02/16/25 05:41 C-Reactive Protein 21.7 H Cardiac Studies: Echocardiogram 02/12/25
--- NOTE | 2025-02-16 07:33 | W.PM.OPSUD ---
Surgery/Procedure H&P Update DATE OF PROCEDURE: February 16, 2025 DATE H&P PERFORMED: 02/14/25 CHANGES TO PREVIOUS DOCUMENTATION: none PREOP DIAGNOSIS: Questionable vegetation on TTE PRIMARY INDICATION FOR PROCEDURE: questionable vegetation on transthoracic echocardiogram PLANNED PROCEDURE: Operation Date: 02/16/25 07:30 Proposed Procedures p CUONG(Not Applicable) - Oswaldo Adam MD
--- NOTE | 2025-02-16 07:53 | USCV_ITS ---
Everardo Greene Age: 54 Gender: M : 1970 Exam Date: 02/16/2025 07:46 Ordering Phys: Edison Campbell MD Technologist: Exam Location: [facility] – [place] Indication: mitral valve anomaly BP: / HR: Rhythm: Sinus Technical Quality: MEASUREMENTS (Male / Female) Normal Values Medications Patient given IV sedation by anesthesia service, for details please refer to the anesthesia report. Complications None. Proc. Components The CUONG probe was passed into the posterior pharynx , mid- esophagus, and distal esophagus. CUONG was performed at multiple levels and in multiple angles. FINDINGS Left Ventricle Normal left ventricular cavity size. Moderate septal hypertrophy measuring 1.6 cm and mild posterior wall hypertophy measuring 1.3 cm. No LVOT obstruction. Normal left ventricular systolic function. Left ventricular ejection fraction is estimated at 70%. Right Ventricle Normal right ventricular size and systolic function. Right Atrium Normal right atrial size. Left Atrium Normal left atrial size. IA Septum Normal interatrial septum with no shunt by color doppler. LA Appendage Normal left atrial appendage. Normal flow velocities in the left atrial appendage. Mitral Valve Severely thickened anterior mitral valve leaflet tip consistent with a myxomatous mitral valve leaflet seen best in the 180 degree long axis view. Mildly elongated chordae tendinae. No mitral valve prolapse or regurgitation. No vegetation. Aortic Valve Structurally normal trileaflet aortic valve. No aortic valve stenosis. No aortic valve regurgitation. Tricuspid Valve Structurally normal tricuspid valve. No tricuspid valve stenosis. No tricuspid valve regurgitation. Pulmonic Valve Structurally normal pulmonic valve. No pulmonary valve stenosis. No pulmonary valve regurgitation. Pericardium No pericardial effusion. Aorta Normal size aortic root and proximal ascending aorta. Normal aortic arch. CONCLUSIONS 1. Normal left ventricular and right ventricular size and systolic function. 2. 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 No MV prolapse or regurgitation. No vegetation. 3. Mildly elongated chordae tendinae attached to the anterior mitral valve leaflet. 4. Moderate hypertrophy of the ventricular septum without LVOT obstruction Oswaldo Adam MD, FACC (Electronically Signed) Final Date: 16 February 2025 17:51 S
--- NOTE | 2025-02-16 08:06 | PM.PROC ---
Procedure Note: Date of procedure: 02/16/25 Pre-procedure diagnosis: possible vegetation on the mitral valve Post-procedure diagnosis: other Procedure: The transesophageal echo probe was gently inserted into the mid esophagus. Multiple views were obtained that revealed a myxomatous and elongated anterior mitral valve leaflet with redundant chordae tendinae. There was no vegetation or mass in the heart. Complications: None Disposition: floor Coding Level of Care Code Acute Code for Brent Mendez
--- NOTE | 2025-02-16 08:25 | ANE.PACU2 ---
Inpatient post-anesthesia follow up: Airway intact: Yes Vital signs: Temperature 98.1 F Pulse Rate [Orthos tatic 96 Standing Right] Pulse Rate [Orthos tatic 82 Sitting Right] Pulse Rate [Orthos tatic Lying 73 Right] Pulse Rate 68 Respiratory Rate 17 Blood Pressure [Or thostatic 147/110 Standing Left Arm] Blood Pressure [Or thostatic 130/80 Sitting Left Arm] Blood Pressure [Or thostatic 130/78 Lying Left Arm] Blood Pressure 112/74 Pulse Oximetry 98 Oxygen Delivery Me thod Room Air Oxygen Flow Rate Fraction of Inspir ed Oxygen Hydration adequate: Yes Nausea and vomiting: No Pain level: 1 Mental status: Baseline
[2025-02-16] MEDS: citric acid-sodium citrate 30 mL UDC PO (08:29)
--- NOTE | 2025-02-16 09:24 | PC.CHAP ---
Pastoral Care Encounter/Spiritual Assessment Type of Contact [] Declined sql programmer visit [] Patient/Family/Request visit [] Outpatient visit [] Follow-up visit [] Physician referral [] Code/Alert [x] Routine visit [] Staff referral [] Actively dying [] Patient sleeping [x] Family support [] [] Out of room [] Palliative care [] [] Receiving care in room [] Pre-surgical visit [] Trauma [] Long length of stay [] ICU visit [] Other: Relational/Emotional Strength [] Patient feels connected with others/family/visitors/staff [] Distress [] Loneliness/isolation [] Abandonment Spirituality of Patient [x] Person of Darcy [] Attends Jew of their Darcy [x] Believes in Prayer [] Reads Bible or Sabianism materials [] There are Spiritual issues to be addressed Actuarial Technician Interventions [x] Prayer [x] Active listening [] Non-anxious presence [] Spiritual/emotional support [] Crisis/trauma care [] Spiritual counseling [] Bereavement support [] Provided bereavement packet [x] Provided Bible/devotional materials [] Provided toy/stuffed animal, coloring book to patient or family member [] Provided Communion [] Anointing/[place] [] Salvation [x] Completed spiritual assessment [] Other: Impact on Illness or Injury [] Angry [] Fearful [] Anxious [] Often cries [] Exhaustion [] Unable to work [] Unable to attend mosque [] Unable to walk/stand [] Unable to read [] Unable to drive [] Unable to eat/drink [] Unable to sleep [] Unable to be with family [] Patient intubated [] Other: Summary Time spent with patient 5 min
--- NOTE | 2025-02-16 11:34 | P.PN_ITS ---
Subjective 2 Subjective: feels better Medications: Reviewed: Yes Vitals/I&O/Wt Last Vital Signs Temp 98.1 F 02/16/25 11:05 Pulse 68 02/16/25 11:05 Resp 17 02/16/25 11:05 BP 112/74 02/16/25 11:05 Pulse Ox 98 02/16/25 11:05 O2 Del Method Room Air 02/16/25 11:05 02/15/25 02/16/25 02/16/25 22:59 06:59 14:59 Intake Total 240 / 1790 Output Total 725 / 1700 1175 / 2875 Balance -485 / 90 -1175 / -1085 Weight last 48 hrs Weight 115.802 kg Weight 115.212 kg Physical Exam 2 Narrative: awake , alert , no distress No JVD PEERLA S1S2 RRR lungs clear Abd sodt , non tender No edema no skin rash Data 02/16/25 05:41 02/16/25 05:41 A&P Assessment and plan 1. ELAINE (acute kidney injury): 1. Acute on chronic kidney disease stage III: Baseline creatinine seems to be in the 1.2-1.3 range, creatinine has worsened to 3 range now. Differential diagnosis-prerenal due to decreased intake, immune mediated AIN due to Keytruda (noted progressive rising creatinine )-though there was no peripheral eosinophilia, no sterile pyuria, urine eosinophils- neg, -nornal check renal ultrasound on right - stop IVFs - watch renal fxn closely , - Spoke to pts oncologst - Avoid IV contrast, no acute indication for dialysis 2. Renal cell carcinoma: Status post left direct nephrectomy and started on Keytruda status post 2 cycles 3. Metabolic acidosis: s/p bicarbonate drip, switched to NS 4. Hypokalemia, repleted 5. abnrmal ECHo , plan for CUONG 6. Proteinura , ordered UPCR , SPEP , UPEP and free light chains Patient evaluated using audiovisual cart. Time spent 40 minutes. PDMP PDMP Reviewed: Not Reviewed Attestations 2 Medical Necessity Statement*: per medicine Coding Level of Care Code Acute Code for Chg Fwd Diagnoses ELAINE (acute kidney injury) N17.9
--- NOTE | 2025-02-16 14:04 | P.PN_ITS ---
Subjective 2 Subjective: Patient seen this morning, alert oriented x 3, following all commands, no pain complaints, creatinine down to 2.6 Vitals/I&O/Wt Last Vital Signs Temp 98.1 F 02/16/25 11:05 Pulse 68 02/16/25 11:05 Resp 17 02/16/25 11:05 BP 112/74 02/16/25 11:05 Pulse Ox 98 02/16/25 11:05 O2 Del Method Room Air 02/16/25 11:05 02/15/25 02/16/25 02/16/25 22:59 06:59 14:59 Intake Total 240 / 1790 240 / 240 Output Total 725 / 1700 1175 / 2875 Balance -485 / 90 -1175 / -1085 240 / 240 Weight last 48 hrs Weight 115.802 kg Weight 115.212 kg Physical Exam 2 Const: COMMON NORMALS: no acute distress and patient oriented x3 Resp: COMMON NORMALS: normal respiratory effort, No retractions, No use of accessory muscles and clear to auscultation bilaterally AUSCULTATION: clear to auscultation bilaterally Cardio: COMMON NORMALS: regular rate, regular rhythm, S1 normal heart sound present and S2 normal heart sound present RATE: regular rate RHYTHM: r egular rhythm HEART SOUNDS: S1 normal heart sound present and S2 normal heart sound present GI: COMMON NORMALS: Normal to inspection, nondistended, normoactive bowel sounds present and non-tender Extremity: COMMON NORMALS: no pedal edema Neuro: COMMON NORMALS: patient oriented x3 Psych: COMMON NORMALS: mental status grossly normal Data 02/16/25 05:41 02/16/25 05:41 Micro: Microbiology 02/12/25 12:09 Blood Culture - Preliminary Blood NEGATIVE TO DATE 02/12/25 12:11 Blood Culture - Preliminary Blood NEGATIVE TO DATE A&P Assessment and plan 1. ELAINE (acute kidney injury): Plan: . ELAINE (acute kidney injury): - Creatinine 2.6 - Hold Keytruda (pembrolizumab) and reassess. - Monitor I&O - Monitor blood pressures. - Ensure adequate urine output during observation. - Follow up with primary care physician (PCP). - Nephrology consulted 2. Syncope: - Monitor Plan: Cardiac echo CONCLUSIONS Normal left ventricular size, systolic function and wall thickness, with no regional wall motion abnormalities. Left ventricular ejection fraction is estimated at 60%. Grade I/IV diastolic dysfunction (abnormal relaxation filling pattern), normal to mildly elevated filling pressures. Mildly thickened mitral valve. No mitral valve stenosis. There appeared to be 2.25 cm long subvalvular apparatus noted possible ruptured chordae, cannot rule out vegetation if clinically indicated transesophageal echocardiogram is better modality to assess Mild tricuspid valve regurgitation. There is no pericardial effusion. Right atrial pressure is around 5 mm of mercury. - CUONG today, no acute findings Fatigue : Monitor Constipation : Constipation attributed to treatment. Kidney cancer status post nephrectomy : Status post nephrectomy receiving immunotherapy as precaution; symptoms worsened after second treatment. - Hold further Keytruda pending reassessment. - Follow up with oncology to discuss next steps. Follow-up : Care coordination after discharge. - Follow up with PCP. - Follow up with oncology and nephrology. PDMP PDMP Reviewed: Not Reviewed Attestations 2 Medical Necessity Statement*: Patient requires hospitalization for ELAINE Diagnoses ELAINE (acute kidney injury) N17.9
[2025-02-16] MEDS: ondansetron 2 mg/ML SDV 2 mL 4 MG IVP (22:40)
[2025-02-17] VITALS (7 sets, daily range): BP systolic 105–127; BP diastolic 63–75; PULSE 70–90; RESP 17–18; TEMP 36.6–36.9; O2SAT 93–97
[2025-02-17] MEDS: pantoprazole 40 mg SDV IVP (04:51)
[2025-02-17 06:18] LABS: Hematocrit 35.8 % (37-53); Hemoglobin 12.40 g/dL (11.27-16.99); Mean Corpuscular HGB Conc 34.6 g/dL (30-55); Mean Corpuscular Hemoglobin 28.9 pg (27-33); Mean Corpuscular Volume 83.4 fl (82-101); Nucleated Red Blood Cells % 0 %; Platelet Count 189 10^3/cmm (157-399); Red Blood Count 4.29 10^6/uL (3.85-5.65); White Blood Count 5.67 10^3/uL (3.29-11.43)
[2025-02-17 06:43] LABS: Alanine Aminotransferase 19 U/L (0-41); Albumin Level 3.8 g/dL (3.5-5.2); Alkaline Phosphatase 75 U/L (40-130); Anion Gap 15.2 (5-19); Aspartate Amino Transferase 17 U/L (0-40); Blood Urea Nitrogen 15 mg/dL (6-20); Calcium 9.1 mg/dL (8.5-10.5); Carbon Dioxide 17 mmol/L (22-29); Chloride 108 mmol/L (98-107); Creatinine Clr Calc Pharmacy 41.6997; Globulin 2.9 g/dL (1.3-4.6); Glucose 87 mg/dL (65-115); Osmolality Calculated 284 mOsm/kg (285-295); Potassium 3.2 mmol/L (3.5-5.1); Sodium 137 mmol/L (136-145); Total Protein 6.7 g/dL (6.6-8.7)
[2025-02-17 06:44] LABS: Procalcitonin 0.15 ng/mL (0-0.5)
[2025-02-17] MEDS: citric acid-sodium citrate 30 mL UDC PO (07:49)
--- NOTE | 2025-02-17 08:57 | P.PN_ITS ---
Subjective 2 Subjective: no new c/o Medications: Reviewed: Yes Vitals/I&O/Wt Last Vital Signs Temp 98.2 F 02/17/25 07:29 Pulse 75 02/17/25 07:29 Resp 17 02/17/25 07:29 BP 119/68 02/17/25 07:29 Pulse Ox 95 02/17/25 07:29 O2 Del Method Room Air 02/17/25 07:29 02/16/25 02/17/25 02/17/25 22:59 06:59 14:59 Intake Total 360 / 600 Output Total 850 / 850 250 / 1100 Balance -490 / -250 -250 / -500 Weight last 48 hrs Weight 115.802 kg Physical Exam 2 Narrative: awake , alert , no distress No JVD PEERLA S1S2 RRR lungs clear Abd sodt , non tender No edema no skin rash Data 02/17/25 05:36 02/17/25 05:36 A&P Assessment and plan 1. ELAINE (acute kidney injury): 1. Acute on chronic kidney disease stage III: Baseline creatinine seems to be in the 1.2-1.3 range, creatinine has worsened to 3 range now. Differential diagnosis-prerenal due to decreased intake, immune mediated AIN due to Keytruda (noted progressive rising creatinine )-though there was no peripheral eosinophilia, no sterile pyuria, urine eosinophils- neg, -normal renal ultrasound on right - stopped IVFs - watch renal fxn closely , - Spoke to pts oncologst - Avoid IV contrast, no acute indication for dialysis 2. Renal cell carcinoma: Status post left direct nephrectomy and started on Keytruda status post 2 cycles 3. Metabolic acidosis: s/p bicarbonate drip, switched to NS 4. Hypokalemia, repleted 5. abnrmal ECHo , s/p CUONG 6. Proteinura , ordered UPCR , SPEP , UPEP and free light chains Patient evaluated using audiovisual cart. Time spent 40 minutes. PDMP PDMP Reviewed: Not Reviewed Attestations 2 Medical Necessity Statement*: per medicine Coding Level of Care Code Acute Code for Chg Fwd Diagnoses ELAINE (acute kidney injury) N17.9
[2025-02-17 11:05] LABS: PROTEIN, TOTAL 6.5 g/dL (6.1-8.1)
[2025-02-17 11:25] LABS: KAPPA LIGHT CHAIN, FREE, SERUM 68.8 mg/L (3.3-19.4); KAPPA/LAMBDA LIGHT CHAINS FREE 1.34 (0.26-1.65); LAMBDA LIGHT CHAIN, FREE, SERU 51.4 mg/L (5.7-26.3)
[2025-02-17 13:55] LABS: Creatinine, Random Urine 88 mg/dL (20-320); Protein, Total, Random 37 mg/dL (5-25); Protein/Creatinine Ratio 0.420 (0.025-0.148); Protein/Creatinine Ratio 420 mg/g creat (25-148)
[2025-02-17 21:55] LABS: ALPHA 1 GLOBULIN 0.3 g/dL (0.2-0.3); ALPHA 2 GLOBULIN 0.7 g/dL (0.5-0.9); BETA 1 GLOBULIN 0.3 g/dL (0.4-0.6); BETA 2 GLOBULIN 0.4 g/dL (0.2-0.5)
[2025-02-19 12:58] LABS: Albumin,Urine Random 8 %; Alpha-1-Globulins Urine Random 16 %; Alpha-2-Globulins Urine Random 17 %; Beta-Globulin,Urine Random 41 %; Gamma Globulin,Urine Random 18 %
--- NOTE | 2025-02-19 14:57 | PM.DCS ---
Discharge Providers Date of Admission: 02/14/25 14:21 Date of Discharge: February 19, 2025 Attending Provider at Admission: Panchito Carter Attending Provider at Discharge: Edison Campbell MD Primary Care Provider: Nicole Cook Diagnoses at Discharge Discharge Diagnosis 1. ELAINE (acute kidney injury): Reason for Visit Reason for Visit: Tired can't Pee abnormal Labs Hospital Course Hospital Course This is a 54-year-old male who presents to [facility] due to concerns for ELAINE Patient was admitted to [facility] for ELAINE, received IV fluids, nephrology consulted, received IV hydration, overall clinically improved, creatinine improved to 2.6 at discharge, follow-up with nephrology as outpatient, follow-up with oncology Cardiac echo CONCLUSIONS Normal left ventricular size, systolic function and wall thickness, with no regional wall motion abnormalities. Left ventricular ejection fraction is estimated at 60%. Grade I/IV diastolic dysfunction (abnormal relaxation filling pattern), normal to mildly elevated filling pressures. Mildly thickened mitral valve. No mitral valve stenosis. There appeared to be 2.25 cm long subvalvular apparatus noted possible ruptured chordae, cannot rule out vegetation if clinically indicated transesophageal echocardiogram is better modality to assess Mild tricuspid valve regurgitation. There is no pericardial effusion. Right atrial pressure is around 5 mm of mercury. - CUONG today, no acute findings, but does have concerns for Moderate hypertrophy of the ventricular septum without LVOT obstruction, follow-up with Dr. Adam Physical Exam Const: COMMON NORMALS: no acute distress and patient oriented x3 Resp: COMMON NORMALS: normal respiratory effort, No retractions, No use of accessory muscles and clear to auscultation bilaterally AUSCULTATION: clear to auscultation bilaterally Cardio: COMMON NORMALS: regular rate, regular rhythm, S1 normal heart sound present and S2 normal heart sound present RATE: regular rate RHYTHM: regular rhythm HEART SOUNDS: S1 normal heart sound present and S2 normal heart sound present GI: COMMON NORMALS: Normal to inspection, nondistended, normoactive bowel sounds present and non-tender Extremity: COMMON NORMALS: no calf tenderness and no pedal edema Neuro: COMMON NORMALS: patient oriented x3 Psych: COMMON NORMALS: mental status grossly normal Discharge Data Studies Completed and Pending Completed Studies During Hospitalization Category Date Time Status CV. echo complete* [id number] Routine Ultrasound 02/12/25 15:24 Completed CV. echo transesophageal [id number] Routine Ultrasound 02/16/25 07:53 Completed US renal BI* [id number] Routine Ultrasound 02/12/25 17:28 Completed Radiology Impressions Renal Ultrasound 02/12/25 17:28 IMPRESSION: 1. Normal RIGHT kidney. 2. Status post LEFT nephrectomy. Laboratory Results WBC 5.67 10^3/uL (3.29-11.43) 02/17/25 05:36 RBC 4.29 10^6/uL (3.85-5.65) 02/17/25 05:36 Hgb 12.40 g/dL (11.27-16.99) 02/17/25 05:36 Hct 35.8 % (37-53) L 02/17/25 05:36 MCV 83.4 fl (82-101) 02/17/25 05:36 MCH 28.9 pg (27-33) 02/17/25 05:36 MCHC 34.6 g/dL (30-55) 02/17/25 05:36 RDW 13.8 % (12.1-15.1) 02/17/25 05:36 Plt Count 189 10^3/cmm (157-399) 02/17/25 05:36 MPV 11.0 fL (7.4-10.4) H 02/17/25 05:36 Neut % (Auto) 59.9 % 02/17/25 05:36 Lymph % (Auto) 18.5 % 02/17/25 05:36 [place] % (Auto) 15.2 % 02/17/25 05:36 Eos % (Auto) 5.5 % 02/17/25 05:36 Baso % (Auto) 0.5 % 02/17/25 05:36 Neut # (Auto) 3.40 10^3/uL (1.8-7.7) 02/17/25 05:36 Lymph # (Auto) 1.1 10^3/uL (0.8-4.8) 02/17/25 05:36 [place] # (Auto) 0.9 10^3/uL (0.2-0.9) 02/17/25 05:36 Eos # (Auto) 0.3 10^3/uL (0.0-0.8) 02/17/25 05:36 Baso # (Auto) 0.0 10^3/uL (0.0-0.1) 02/17/25 05:36 Nucleated RBC % (auto) 0 % 02/17/25 05:36 Nucleated RBCs # 0.0 /100WBC 02/17/25 05:36 Sodium 137 mmol/L (136-145) 02/17/25 05:36 Potassium 3.2 mmol/L (3.5-5.1) L 02/17/25 05:36 Chloride 108 mmol/L (98-107) H 02/17/25 05:36 Carbon Dioxide 17 mmol/L (22-29) L 02/17/25 05:36 Anion Gap 15.2 (5-19) 02/17/25 05:36 BUN 15 mg/dL (6-20) 02/17/25 05:36 Creatinine 2.7 mg/dL (0.7-1.2) H 02/17/25 05:36 GFR Calculation 24.7 mL/min (90-130) L 02/17/25 05:36 Glucose 87 mg/dL (65-115) 02/17/25 05:36 Calculated Osmolality 284 mOsm/kg (285-295) L 02/17/25 05:36 Lactic Acid 1.0 mmol/L (0.5-2.2) 02/12/25 11:52 Calcium 9.1 mg/dL (8.5-10.5) 02/17/25 05:36 Total Bilirubin 0.3 mg/dL (0.15-1.2) 02/17/25 05:36 AST 17 U/L (0-40) 02/17/25 05:36 ALT 19 U/L (0-41) 02/17/25 05:36 Alkaline Phosphatase 75 U/L (40-130) 02/17/25 05:36 Creatine Kinase 95 U/L (39-308) 02/12/25 11:52 C-Reactive Protein 18.0 mg/L (0.0-4.9) H 02/17/25 05:36 Total Protein 6.7 g/dL (6.6-8.7) 02/17/25 05:36 Albumin 3.8 g/dL (3.5-5.2) 02/17/25 05:36 Globulin 2.9 g/dL (1.3-4.6) 02/17/25 05:36 Rwbxb-9-Aogkjordp 0.3 g/dL (0.2-0.3) 02/15/25 11:40 Wafue-4-Xzcuclqyi 0.7 g/dL (0.5-0.9) 02/15/25 11:40 Ervj-8-Kedgkecz 0.3 g/dL (0.4-0.6) L 02/15/25 11:40 Ytke-9-Awmcyijm 0.4 g/dL (0.2-0.5) 02/15/25 11:40 Gamma Globulins 1.2 g/dL (0.8-1.7) 02/15/25 11:40 Abnorm Protein Band 1 Not Reportable 02/15/25 11:40 Procalcitonin 0.15 ng/mL (0-0.5) 02/17/25 05:36 Urine Color Yellow (Yellow) 02/12/25 13:27 Urine Appearance Clear (CLEAR) 02/12/25 13:27 Urine pH 6.5 (5-7) 02/12/25 13:27 Ur Specific [place] 1.018 (1.005-1.030) 02/12/25 13:27 Urine Protein 2+ (Negative) A 02/12/25 13:27 Urine Glucose (UA) Negative (Normal) 02/12/25 13:27 Urine Ketones 1+ (Negative) H 02/12/25 13:27 Urine Blood Negative (Negative) 02/12/25 13:27 Urine Nitrate Negative (Negative) 02/12/25 13:27 Urine Bilirubin Negative (Negative) 02/12/25 13:27 Urine Urobilinogen 1.0 mg/dL (Negative) 02/12/25 13:27 Ur Leukocyte Esterase Negative (Negative) 02/12/25 13:27 Urine RBC 0-2 /hpf (0-2) 02/12/25 13:27 Urine WBC 0-5 /hpf (0-5) 02/12/25 13:27 Ur Eosinophil Smear 0 (0-0) 02/14/25 16:55 Ur Squamous Epith Cells 0-5 /hpf (0-5) 02/12/25 13:27 Amorphous Sediment Not Reportable 02/12/25 13:27 Urine Bacteria None seen /hpf (NONE) 02/12/25 13:27 Hyaline Casts 1.21 /lpf 02/12/25 13:27 Urine Eosinophils No eosinophils seen 02/14/25 16:55 Ur Random Creatinine 88 mg/dL (20-320) 02/15/25 15:15 Ur Random Albumin 8 % 02/15/25 15:15 U Random Total Protein 17 mg/dL 02/15/25 15:15 U Random Total Protein 37 mg/dL (5-25) H 02/15/25 15:15 Ur Random Sodium 90 mmol/L 02/14/25 16:55 Ur Random Chloride 73 mmol/L 02/14/25 16:55 Urine Creatinine 94 mg/dL (39-259) 02/15/25 15:15 Protein/Creatinin Ratio 420 mg/g creat (25-148) H 02/15/25 15:15 Protein/Creat Ratio 24h 0.420 (0.025-0.148) H 02/15/25 15:15 U Random l-3-Belpqcjn % 16 % 02/15/25 15:15 U Random m-8-Nclrodoj % 17 % 02/15/25 15:15 U Random Beta Globulin 41 % 02/15/25 15:15 U Random Gamma Glob 18 % 02/15/25 15:15 U Abnormal Prot Band 1 Not Reportable 02/15/25 15:15 U Abnormal Prot Band 2 Not Reportable 02/15/25 15:15 U Abnormal Prot Band 3 Not Reportable 02/15/25 15:15 Urine PEP Interpret See note 02/15/25 15:15 Pro Electrophoresis Int See note 02/15/25 11:40 Free [place] Light Chains 68.8 mg/L (3.3-19.4) H 02/15/25 11:40 Free Lambda Light Chain 51.4 mg/L (5.7-26.3) H 02/15/25 11:40 Free [place]/Lambda Ratio 1.34 (0.26-1.65) 02/15/25 11:40 Vitals Last Vital Signs Temp 98 F 02/17/25 12:56 Pulse 74 02/17/25 12:56 Resp 17 02/17/25 12:56 BP 127/70 02/17/25 12:56 Pulse Ox 93 02/17/25 12:56 O2 Del Method Room Air 02/17/25 11:48 Discharge Plan Discharge Patient Disposition: Home Condition: Stable Prescriptions: New scopolamine base 1 mg over 3 days patch 3 day 1 patch transdermal Q3D PRN (Reason: nausea and vomiting) 30 Days Qty: 10 0RF ondansetron 4 mg tablet,disintegrating 4 mg PO Q8H PRN (Reason: nausea and vomiting) 5 Days Qty: 20 0RF Continued omeprazole 40 mg capsule,delayed release(DR/EC) 40 mg PO DAILY sennosides [Senokot] 8.6 mg tablet 8.6 mg PO DAILY PRN (Reason: Constipation) ondansetron HCl 8 mg tablet 8 mg PO .COMPLEX PRN (Reason: nausea and vomiting) Qty: 60 6RF Rx Instructions: 8 mg orally every 6 hours PRN; prochlorperazine maleate [Compazine] 10 mg tablet 10 mg PO Q6H PRN (Reason: nausea and vomiting) Qty: 30 6RF Rx Instructions: may alternate with ondanestron for nausea or make take alone. acetaminophen [Tylenol Extra Strength] 500 mg Tablet 500 mg PO QID PRN (Reason: Fever Or Pain) Changed potassium chloride 10 mEq capsule, extended release 10 meq PO BID 30 Days Qty: 60 0RF Discharge Order = DC NOW: Discharge Order (Routine); Ordered 02/17/25 Ordered By: Edison Campbell Referrals: [facility]. [Outside] - 1-3 days Referral Note: elaine with nephrectomy We have notified your physician's clinic of the need for a follow-up appointment to be scheduled. If you have not heard from them within the next 2 business days, please call them directly. Nicole Cook FNP [Primary Care Provider, Family Practice] - 02/20/25 2:40 pm Referral Note: APPOINTMENT AT [facility] Oswaldo Adam MD [Physician, Cardiology] - 03/16/25 2:00 pm Kody Pichardo MD [Hospitalist, Oncology] - 1-3 days Referral Note: We have notified your physician's clinic of the need for a follow-up appointment to be scheduled. If you have not heard from them within the next 2 business days, please call them directly. Patient Instructions: Scopolamine (Absorbed through the skin), Ondansetron (By mouth) (Zofran, Zofran ODT, Zuplenz), Acute Kidney Injury (GEN), Opioid Safety, Patient Portal & Ankur Instructions, GI Post Anesthesia Care Activity Restrictions/Additional Instructions: - Please hydrate well - Drink at least 2 L of fluid a day - Follow-up with [facility] - Please have primary care provider watch your kidney function weekly - Please have your primary care provider monitor potassium - Your creatinine at discharge 2.7 - If you have nausea, vomiting please go to the emergency room - Please use scopolamine patch sparingly for nausea and vomiting - If you have any chest pain or palpitations stop using scopolamine - Monitor for lightheadedness and dizziness associate with scopolamine - Please follow-up with cardiology Discharge Attestations Time Spent in Discharge Care*: greater than 30 min Quality Metrics Clinical Quality Measures [ No reported AMI, CVA or VTE this stay] Coding Level of Care Code 29367 Total time (in minutes) for Discharge: 45 Diagnoses ELAINE (acute kidney injury) N17.9
== END 2025-02-17 12:58 | disposition home or self-care (01) | DRG 683 ==
LOC: ER 11:45 → MEDSURG 02-13 04:24
PROVIDERS: Family Medicine; Hospitalist; Internal Medicine Cardiovascular Disease; Admitting Provider Internal Medicine; Emergency Provider Emergency Medicine; PCP Nurse Practitioner Family; Visit Provider Family Medicine
PROC: B24BZZ4 Ultrasonography of Heart with Aorta, Transesophageal (ICD-10-PCS; CPT 93312; principal; 2025-02-16 07:30)
DX: N17.9 Acute kidney failure, unspecified (principal); C64.2 Malignant neoplasm of left kidney, except renal pelvis; E87.20 Acidosis, unspecified; R55 Syncope and collapse; R39.12 Poor urinary stream; K59.00 Constipation, unspecified; R53.83 Other fatigue; E87.6 Hypokalemia; I51.7 Cardiomegaly; N18.30 Chronic kidney disease, stage 3 unspecified; Z79.60 Long term (current) use of unspecified immunomodulators and immunosuppressants; Z90.5 Acquired absence of kidney; Z91.81 History of falling
CPT/HCPCS: 36415; 51798; 76770; 80048; 80053; 81001; 82436; 82550; 82570; 82575; 83605; 83883; 84145; 84155; 84156; 84165; 84166; 84300; 85025; 85999; 86140; 87040; 93005; 93306; 93312; 93320; 93325; 99285; G0378; J2250; J2371; J2405; J2470; J2704; J3010; J3490; J7030; J7070; J7120; J9999; Q3014

== ENCOUNTER 2025-02-19 09:53 | Oncology outpatient (recurring) (ONCR) | payer OTHER, SELFPAY ==
[2025-02-19 10:39] LABS: Hematocrit 40.6 % (37-53); Hemoglobin 13.90 g/dL (11.27-16.99); Mean Corpuscular HGB Conc 34.2 g/dL (30-55); Mean Corpuscular Hemoglobin 28.7 pg (27-33); Mean Corpuscular Volume 83.9 fl (82-101); Nucleated Red Blood Cells % 0 %; Platelet Count 217 10^3/cmm (157-399); Red Blood Count 4.84 10^6/uL (3.85-5.65); White Blood Count 8.33 10^3/uL (3.29-11.43)
[2025-02-19 10:55] LABS: Alanine Aminotransferase 19 U/L (0-41); Albumin Level 3.9 g/dL (3.5-5.2); Alkaline Phosphatase 77 U/L (40-130); Anion Gap 18.6 (5-19); Aspartate Amino Transferase 23 U/L (0-40); Blood Urea Nitrogen 20 mg/dL (6-20); Calcium 9.7 mg/dL (8.5-10.5); Carbon Dioxide 18 mmol/L (22-29); Chloride 101 mmol/L (98-107); Globulin 3.9 g/dL (1.3-4.6); Glucose 102 mg/dL (65-115); Osmolality Calculated 281 mOsm/kg (285-295); Potassium 3.6 mmol/L (3.5-5.1); Sodium 134 mmol/L (136-145); Total Protein 7.8 g/dL (6.6-8.7)
== END 2025-03-15 23:59 | disposition home or self-care (01) ==
PROVIDERS: Nurse Practitioner; PCP Nurse Practitioner Family; Visit Provider Internal Medicine
DX: C64.2 Malignant neoplasm of left kidney, except renal pelvis (principal)
CPT/HCPCS: 36415; 80053; 83615; 85025

== ENCOUNTER 2025-02-20 12:25 | Emergency (ER) | payer OTHER, SELFPAY ==
[2025-02-20] VITALS (10 sets, daily range): BP systolic 94–113; BP diastolic 61–72; PULSE 69–79; RESP 16; TEMP 36.8; O2SAT 93–99; BMI 33.5
--- OUTSIDE RECORDS SUMMARY | 2025-02-20 12:30 | XMS_ITS | Encounter Summary ---
Author Organization [facility] Address [address] [place] [address] Care Team Providers Care Foster Care Case Manager Name Role Phone Unavailable Primary Care Provider Unavailabl e Encounter Details Date Type Department Care Team (Late Contact Info) Description 01/28/2025 Lab Requisition [facility] Laboratory Services [place] [address] [place] [address] Nicole Cook, ROSE [address] [place] [address] [phone] Malignant neoplasm of left kidney, except renal [...] PM CDT Legal Sex Male 1:54 AM CASINO HOST Gender Identity Not on file Sexual Orientation Not on file documented as of this encounter Plan of Treatment Upcoming Encounters Date Type Department Care Team (Late st Contact Info) Description 04/07/2025 2:30 PM CASINO HOST Office Visit [facility] [place] [address] [place] [address] Aurora Solis, [facility] [address] [place] [address] 06/24/2025 8:00 AM CDT Office Visit [facility] [place] [address] [facility] [place] [address] [place] [address] [place] [address] Nicole Cook OPERATING ROOM SURGICAL TECHNOLOGIST [address] [facility] [place] [address] documented as of this encounter Procedures [...] - 145 mmol/L 01/28/2025 1:17 PM CDT [facility] POTASSIUM 4.2 3.5 - 5.1 mmol/L 01/28/2025 1:17 PM CDT [facility] CHLORIDE 106 98 - 107 mmol/L 01/28/2025 1:17 PM CDT [facility] CO2 16(L) 22 - 29 mmol/L 01/28/2025 1:17 PM CDT [facility] CALCIUM 10.0 8.6 - 10.0 mg/dL 01/28/2025 1:17 PM CDT [facility] BUN 44(H) 6 - 20 mg/dL 01/28/2025 1:17 PM [facility] CREATININE 2.58(H) 0.67 - 1.17 mg/dL 01/28/2025 1:17 PM [facility] GLUCOSE 83 74 - 99 mg/dL 01/28/2025 1:17 PM [facility] TOTAL PROTEIN 8.5 6.6 - 8.7 g/dL 01/28/2025 1:17 PM [facility] ALBUMIN 4.7 3.5 - 5.2 g/dL 01/28/2025 1:17 PM [facility] BILIRUBIN TOTAL 0.4 0.0 - 1.2 mg/dL 01/28/2025 1:17 PM [facility] ALKALINE PHOSPHATASE 81 40 - 129 U/L 01/28/2025 1:17 PM [facility] AST 19 0 - 50 U/L 01/28/2025 1:17 PM [facility] ALT 24 0 - 50 U/L 01/28/2025 1:17 PM [facility] GFR 29(L) >=60 mL/min/1.7 3 sq meter 01/28/2025 1:17 PM [facility] Comment:eGFR calculated with 2020 CKD-EPI equation. Vegetarian diet, extremely high or low muscle mass, and may affect results. Cystatin C with Glomerular Filtration Rate is a suitable alternative for these patients. ANION GAP 13 5 - 20 mmol/L 01/28/2025 1:17 PM [facility] Blood 01/28/2025 12:5 7 PM CDT 01/28/2025 12:57 PM CDT us Nicole FINCHP CHEMISTRY ORDERABLES Final Resul t [facility] CLIA # [id number] [address] [place] [address] * (ABNORMAL) CBC WITH DIFFERENTIAL (01/28/2025 12:57 PM CDT) WBC 10.8(H) 4.2 - 9.1 K/uL 01/28/2025 1:01 PM [facility] RBC 5.01 4.63 - 6.08 M/uL 01/28/2025 1:01 PM [facility] HEMOGLOBIN 14.4 13.7 - 17.5 g/dL 01/28/2025 1:01 PM [facility] HEMATOCRIT 41.8 40.1 - 51.0 % 01/28/2025 1:01 PM [facility] MCV 83.4 79.0 - 92.2 fL 01/28/2025 1:01 [facility] MCH 28.7 25.7 - 32.2 pg 01/28/2025 1:01 [facility] MCHC 34.4 32.3 - 36.5 g/dL 01/28/2025 1:01 [facility] RDW 13.3 11.0 - 14.5 % 01/28/2025 1:01 [facility] RDW-STDEV 40.3 36.9 - 56.9 fL 01/28/2025 1:01 [facility] PLATELETS 275 130 - 400 K/uL 01/28/2025 1:01 [facility] MPV 9.8(L) 10.0 - 14.8 fL 01/28/2025 1:01 [facility] NEUTROPHILS 75(H) 34 - 68 % 01/28/2025 1:01 PM [facility] LYMPHOCYTES 11(L) 22 - 53 % 01/28/2025 1:01 PM [facility] MONOCYTES 9 5 - 12 % 01/28/2025 1:01 PM [facility] EOSINOPHILS 3 1 - 7 % 01/28/2025 1:01 PM [facility] BASOPHILS 1 0 - 1 % 01/28/2025 1:01 PM [facility] IMMATURE GRANULOCYTES 0 % 01/28/2025 1:01 [facility] NEUTROPHIL ABSOLUTE 8.05(H) 1.78 - 5.38 K/uL 01/28/2025 1:01 PM CDT [facility] LYMPHOCYTE ABSOLUTE 1.23 1.20 - 3.40 K/uL 01/28/2025 1:01 PM CDT [facility] MONOCYTE ABSOLUTE 0.99(H) 0.30 - 0.82 K/uL 01/28/2025 1:01 PM CDT [facility] EOSINOPHIL ABSOLUTE 0.37 0.04 - 0.54 K/uL 01/28/2025 1:01 PM CDT [facility] BASOPHILS ABSOLUTE 0.09(H) 0.01 - 0.08 K/uL 01/28/2025 1:01 PM CDT [facility] IMMATURE GRANULOCYTES ABSOLUTE 0.04 K/uL 01/28/2025 1:01 PM T [facility] Blood Collection / Unknown 01/28/2025 12:57 PM CDT 01/28/2025 12:57 PM CDT us Nicole Cook OPERATING ROOM SURGICAL TECHNOLOGIST HEMATOLOGY ORDERABLES Final Resu lt [facility] CLIA # [id number] [address] [place] [address] documented in this encounter Visit Diagnoses Diagnosis Malignant neoplasm of left kidney, except renal pelvis (CMS/HCC) Malignant neoplasm of kidney, except pelvis documented in this encounter
--- OUTSIDE RECORDS SUMMARY | 2025-02-20 12:30 | XMS_ITS | Encounter Summary ---
Author Organization [facility], [facility] Address [address] [address] Phone Care Team Providers Care Manufacturing Weaver Name Role Phone Saeed Cooka ROSE Primary Care Provider [phone] Reason for Referral * Consultation (Routine) - Authorized Specialty Diagnoses / Procedures Referred By Rudy t Referred To Contact Nephrology Diagnoses Acute nontraumatic kidney injury, not otherwise specified (HCC) History of nephrectomy Edison Campbell MD [address] [place] [address] Phone: tel: fax: Alvarez Tejada MD [address] [address] Phone: tel: fax: Referral ID Status Reason Start Date Expiration Date Visits Requested Visits Authorized [id number] Authorized Consult and Treat 02/18/2025 02/18/2026 1 1 OPERATOR Encounter Details Date Type Department Care Team (Latest Contact Info) Description 02/18/2025 Transcribe Orders [facility], [facility] [address] [address] Edison Campbell MD [address] [place] [id number] Acute nontraumatic kidney injury, not otherwise specified (HCC) (Primary Dx); History of nephrectomy Social History Tobacco Use Types Packs/Day Years Used Date Smoking Tobacco: Never Assessed Sex and Gender Information Value Date Recorded Sex Assigned at Not on file Legal Sex Male 9:24 AM EST Gender Identity Not on file Sexual Orientation Not on file documented as of this encounter Plan of Treatment Upcoming Encounters Date Type Department Care Team (Late st Contact Info) Description 02/24/2025 11:10 AM DYE OPERATOR Office Visit [facility] [address] [place] [address] Alvarez Tejada MD [address] [facility] [address] [place] [address] Scheduled Referrals Name Type Priority Associated Diagnoses Orde r Schedule Ambulatory referral to Nephrology Outpatient Referral Routine Acute nontraumatic kidney injury, not otherwise specified (HCC) History of nephrectomy Expected: 02/18/2025, Expires: 03/20/2026 documented as of this encounter Visit Diagnoses Diagnosis Acute nontraumatic kidney injury, not otherwise specified (HCC)- Primary History of nephrectomy documented in this encounter Care Teams Manufacturing Weaver Relationship Specialty Start Date End Date Nicole Cook FNP [address] [place] [address] PCP - General Nurse Practitioner 02/18/25 documented as of this encounter
--- OUTSIDE RECORDS SUMMARY | 2025-02-20 12:30 | XMS_ITS | Encounter Summary ---
Author Organization [facility], [facility] Address [address] [place] [address] [place] [address] Phone Care Team Providers Care Willow Machine Tender Name Role Phone Saeed Cooka ROSE Primary Care Provider [phone] Encounter Details Date Type Department Care Team (Late st Contact Info) Description 02/18/2025 Telephone [facility], [facility] [address] [place] [address] [place] [address] Alvarez Tejada MD [address] [place] [address] [place] [address] Social History Tobacco Use Types Packs/Day Years Used Date Smoking Tobacco: Never Assessed Sex and Gender Information Value Date Recorded Sex Assigned at Not on file Legal Sex Male 9:24 AM EST Gender Identity Not on file Sexual Orientation Not on file documented as of this encounter Miscellaneous Notes * Telephone Encounter - Magda Redd - 02/18/2025 8:38 AM CST Referral received: 02/17/25 Referring Provider: Dr Edison Campbell Referral Diagnosis: ELAINE with Nephrectomy Preferred Location: [place] GFR trend: 24.7 02/17 25.9 02/16 25.9 02/15 24.7 02/14 23.7 02/13 Potassium 3.2 02/17 3.4 02/16 3.2 02/15 3.3 02/14 3.1 02/13 Comments: Referral Scanned to Media. ROUTINE OR URGENT IF urgent next staffing day is 04/02-04/03 First available in [place] is 07/27 documented in this encounter Plan of Treatment Upcoming Encounters Date Type Department Care Team (Late st Contact Info) Description 02/24/2025 11:10 AM DUSTER TENDER Office Visit [facility] [address] [place], [place] [address] Alvarez Tejada MD [address] [facility] [address] [place] [address] documented as of this encounter Visit Diagnoses Not on filedocumented in this encounter Care Teams Willow Machine Tender Relationship Specialty Start Date End Date Nicole Cook FNP [address] [place] [address] PCP - General Nurse Practitioner 02/18/25 documented as of this encounter
--- OUTSIDE RECORDS SUMMARY | 2025-02-20 12:30 | XMS_ITS | Clinical Summary ---
Author Organization [facility] Address [address] [facility] [address] [place] [address] Phone Care Team Providers Care Cement [employer] Name Role Phone Nicole Cook ROSE Primary Care Provider [phone] Encounters Date Type Department Care Team Description 02/20/2025 Documentation Only [facility], [facility] [address] [place] [address] [place] [address] Alvarez Tejada MD 02/18/2025 Telephone [facility], [facility] [address] [place] [address] [place] [address] Alvarez Tejada MD 02/18/2025 Transcribe Orders [facility], [facility] [address] [place] [address] [place] [address] Edison Campbell MD Acute nontraumatic kidney injury, not otherwise specified (HCC) (Primary Dx); History of nephrectomy from Last 3 Months Social History Tobacco Use Types Packs/Day Years Used Date Smoking Tobacco: Never Assessed Sex and Gender Information Value Date Recorded Sex Assigned at Not on file Legal Sex Male 9:24 AM EST Gender Identity Not on file Sexual Orientation Not on file Plan of Treatment Upcoming Encounters Date Type Department Care Team (Late st Contact Info) Description 02/24/2025 11:10 AM BRIDGE LEVERMAN Office Visit [facility] [address] [place], [place] [address] Alvarez Tejada MD [address] [place] [address] [place] [address] Health Maintenance Due Date Last Done Comments Hepatitis B Vaccine (1 of 3 - 19+ 3-dose series) 05/01 Pneumococcal Vaccine: 50+ Years (1 of 2 - PCV) 990 Colorectal Cancer Screening: Annual FOBT 2019 Colorectal Cancer Screening: Colonoscopy 2019 Colorectal Cancer Screening: Sigmoidoscopy 2019 Influenza Vaccine (#1) 2024 Insurance [facility] Care Teams [employer] Relationship Specialty Start Date End Date Nicole Cook FNP [address] [place] [address] [place] [address] PCP - General Nurse Practitioner 02/18/25
--- OUTSIDE RECORDS SUMMARY | 2025-02-20 12:30 | XMS_ITS | Encounter Summary ---
Author Organization [facility], [facility] Address [address] [place] [address] [place] [address] Phone Care Team Providers Care Manager Of Enterprise Name Role Phone Nicole Cook Primary Care Provider [phone] Encounter Details Date Type Department Care Team (Late Contact Info) Description 02/20/2025 Documentation Only [facility] [address] [place] [address] [place] [address] Alvarez Tejada MD [address] [place] [address] [place] [address] Social History Tobacco Use Types [...] st Contact Info) Description 02/24/2025 11:10 AM HABITAT MANAGEMENT COORDINATOR Office Visit [facility] [address] [place], [place] [address] Alvarez Tejada MD [address] [place] [address] [place] [address] documented as of this encounter Visit Diagnoses Not on filedocumented in this encounter Care Teams Manager Of Enterprise Relationship Specialty Start Date End Date Nicole Cook FNP [address] [place] [address] PCP - General Nurse Practitioner 02/18/25 documented as of this encounter
--- OUTSIDE RECORDS SUMMARY | 2025-02-20 12:30 | XMS_ITS | Encounter Summary ---
Author Organization [facility] Address [address] [place] [address] Care Team Providers Care Ribbon Blockmaker Name Role Phone Unavailable Primary Care Provider Unavailabl e Encounter Details Date Type Department Care Team (Latest Contact Info) Description 02/05/2007 Outpatient Historical [facility] Family Medicine- [address] [place] [address] [place], [place] NO ADDRESS ON FILE Pain in Joint, Shoulder Region (Primary Dx); Skin Sensation Disturb; Unspecified Essential Hypertension Social History Tobacco Use Types Packs/Day Years Used Date Smoking Tobacco: Never Assessed Sex and Gender Information Value Date Recorded Sex Assigned at Not on file Legal Sex Male 6:48 AM BOND BROKER Gender Identity Not on file Sexual Orientation Not on file documented as of this encounter Plan of Treatment Not on file documented as of this encounter Visit Diagnoses Diagnosis Pain in joint, shoulder region- Primary Skin sensation disturb Disturbance of skin sensation Unspecified essential hypertension documented in this encounter
--- OUTSIDE RECORDS SUMMARY | 2025-02-20 12:30 | XMS_ITS | Clinical Summary ---
Author Organization [facility] Address [address] Reina: Epic Prelude ADT KLARISSA GAMA [address] Care Team Providers Care Book Agent Name Role Phone Unavailable Primary Care Provider [...] Encounters Date Type Department Care Team Description 02/17/2025 External Device Data STL ABSTRACTION Provider, Abstract 02/17/2025 External Device Data STL ABSTRACTION Provider, Abstract 02/11/2025 External Device Data STL ABSTRACTION Provider, Abstract 02/10/2025 9:13 AM CDT - 02/10/2025 2:41 PM CDT Emergency [facility] Emergency Medicine [address] [place] [phone] Tony De Paz MD Vasovagal syncope (Primary Dx); Hypokalemia; Acute renal failure superimposed on chronic kidney disease, unspecified acute renal failure type, unspecified CKD stage Discharge Disposition: Home or Self Care 02/10/2025 Travel 02/04/2025 External Device Data STL ABSTRACTION Provider, Abstract 01/30/2025 Results Follow-Up [facility] [address] [place] [address] [place] [phone] Nicole Cook FNP CBC WITH DIFFERENTIAL, COMPREHENSIVE METABOLIC PANEL 01/30/2025 Results Follow-Up [facility] [address] [facility] [address] [place] [phone] Nicole Cook FNP US RENAL AND BLADDER 01/29/2025 11:36 AM CDT - 01/29/2025 11:59 PM CDT Hospital Encounter [facility] [address] [place] [phone] Nicole Cook FNP Discharge Disposition: Home or Self Care 01/28/2025 12:48 PM CDT - 01/28/2025 11:59 PM CDT Hospital Encounter [facility] Out[facility] [place] [address] [place] [phone] Nicole Cook, COMPUTER INSTRUCTOR Malignant neoplasm of left kidney, except renal pelvis (CMS/HCC) Discharge Disposition: Home or Self Care 01/28/2025 11:20 AM CDT Office Visit [address] [phone] Nicole Cook FNP Renal cell carcinoma of left kidney (CMS/HCC) (Primary Dx) 01/28/[address] [facility] General Laboratory Services [place] [address] [place] [phone] Nicole Cook, ROSE Malignant neoplasm of left kidney, except renal pelvis (CMS/HCC) 01/20/2025 External Device Data STL ABSTRACTION Provider, Abstract 01/03/2025 Results Follow-Up [address] [phone] Nicole Cook FNP CBC WITH DIFFERENTIAL, COMPREHENSIVE METABOLIC PANEL 01/01/2025 Medication Prior Auth Encounter [facility] Prescription Management Dept [address] [place] [phone] Delfina Barboza, PHARMACIST 12/31/2024 External Device Data STL ABSTRACTION Provider, Abstract 12/30/2024 External Device Data STL ABSTRACTION Provider, Abstract 12/30/2024 External Device Data STL ABSTRACTION Provider, Abstract 12/25/2024 8:40 AM CDT Office Visit [address] [phone] Nicole Cook, ROSE Hiatal hernia with gastroesophageal reflux (Primary Dx); [...] transportation for future doctor visits, bean picker machine operator medication, etc.? No 2024 Housing Stability [...] PM CDT Legal Sex Male 1:54 AM WASTE WATER PLANT OPERATOR Gender Identity Not on file Sexual Orientation [...] st Contact Info) Description 04/07/2025 2:30 PM WASTE WATER PLANT OPERATOR Office Visit [facility] Urology [address] [phone] Aurora Solis [address] [phone] 06/24/2025 8:00 AM CDT Office Visit [facility] Family Medicine [place] [address] [place] [address] [place] [phone] Nicole Cook [address] [place] [phone] Health Maintenance Due Date Last Done Comments [...] Completed 03/16/2022 Medical Devices Implanted Type Area Community Engagement Coordinator Device Identifier Shelf Expiration Date Model / Serial / Lot Clip Hemolok Lrg [id number] - Csc - [id number] Implanted:Qty: 1 on 08/25/2024 by Gilberto Claros MD at [facility] Clip Left: Abdomen TELEFLEX- WECK CLOSURE SYS [id number] 04/21/2029 [id number] / / [id number] Clip Hemolok Lrg [id number] - Csc - [id number] Implanted:Qty: 1 on 08/25/2024 by Gilberto Claros MD at [facility] Clip Left: Abdomen TELEFLEX- WECK CLOSURE SYS [id number] 02/28/2029 [id number] / / [id number] Clip Hemolok Lrg [id number] - Csc - [id number] Implanted:Qty: 1 on 08/25/2024 by Gilberto Claros MD at [facility] Clip Left: Abdomen TELEFLEX- WECK CLOSURE SYS [id number] 04/21/2029 [id number] / / [id number] Agent Hemostat Surgicel 3x4in 1943s - [id number] Implanted:Qty: 1 on 08/25/2024 by Gilberto Claros MD at [facility] Hemostatic Left: Abdomen J[employer]J- [employer] [id number] 02/13/2029 1943S / / [id number] Hemostatic Surgicel 6x9in 1946 - [id number] Implanted:Qty: 1 on 08/25/2024 by Gilberto Claros MD at [facility] Hemostatic Left: Abdomen J&J- [employer] [id number] 02/13/2029 1946 / / [id number] Stent Contour 1xu65as [id number] - [id number] Implanted:Qty: 1 on 07/01/2024 by Nicolette Wynne MD at [facility] Stent Left: Bladder [employer]/TOP LIFTER [id number] 09/19/2026 [id number] / / [id number] Explanted Type Area Community Engagement Coordinator Device Identifier Shelf Expiration Date Model / Serial / Lot Stent Contour [id number] - [id number] Implanted:Qty: 1 on 03/28/2022 by Nicolette Wynne MD at [facility] Explanted:Qty: 1 on 04/01/2022 by Nicolette Wynne MD at [facility] Stent Left: Ureter [employer]/TOP LIFTER [id number] 10/05/2024 [id number] / / [id number] Procedures Procedure Name Priority Date/Time Associated Diagnosis [...] PELVIS WO CONTRAST Stat 03/16/2022 9:30 PM WASTE WATER PLANT OPERATOR from Last 3 Months or Most Recently Relevant to Health Maintenance Results * (ABNORMAL) BASIC METABOLIC PANEL (02/10/2025 2:10 PM CDT) SODIUM 136 136 - 145 mmol/L 02/10/2025 2:28 PM [facility] POTASSIUM 3.6 3.5 - 5.1 mmol/L 02/10/2025 2:28 PM [facility] CHLORIDE 111(H) 98 - 107 mmol/L 02/10/2025 2:28 PM [facility] CO2 15(L) 22 - 29 mmol/L 02/10/2025 2:28 PM [facility] CALCIUM 9.2 8.6 - 10.0 mg/dL 02/10/2025 2:28 PM [facility] BUN 34(H) 6 - 20 mg/dL 02/10/2025 2:28 PM [facility] CREATININE 2.99(H) 0.67 - 1.17 mg/dL 02/10/2025 2:28 PM [facility] GLUCOSE 92 74 - 99 mg/dL 02/10/2025 2:28 PM [facility] GFR 24(L) >=60 mL/min/1.7 3 sq meter 02/10/2025 2:28 PM [facility] Comment:eGFR calculated with 2020 CKD-EPI equation. Vegetarian diet, extremely high or low muscle mass, and may affect results. Cystatin C with Glomerular Filtration Rate is a suitable alternative for these patients. ANION GAP 10 5 - 20 mmol/L 02/10/2025 2:28 PM CDT [facility] Blood BLOOD SPECIMEN / Unknown Collection / Unknown 02/10/2025 2:10 PM CDT 02/10/2025 2:10 PM CDT us Tony De Paz MD CHEMISTRY ORDERABLES Final Result Performing Organization Address [facility]/ZIP Co de Phone Number [facility] CLIA # [id number] [address] [place] [address] [id number] * URINALYSIS MICROSCOPY ONLY (02/10/2025 1:54 PM CDT) WBC UA 0-2 0 - 2 /hpf 02/10/2025 2:15 PM CDT [facility] RBC UA 0-2 0 - 2 /hpf 02/10/2025 2:15 PM CDT [facility] BACTERIA UA Negative Negative /hpf 02/10/2025 2:15 PM CDT [facility] EPITHELIAL CELLS, URINE 0-5 0 - 5 /hpf 02/10/2025 2:15 PM CDT [facility] HYALINE CAST 0-2 None Seen, 0-2 /lpf 02/10/2025 2:15 PM CDT [facility] Urine URINE SPECIMEN OBTAINED BY CLEAN CATCH PROCEDURE / Unknown Collection / Unknown 02/10/2025 1:54 PM CDT 02/10/2025 1:58 PM CDT us Tony De Paz MD URINE ORDERABLES Final Res ult [facility] CLIA # [id number] [address] [place] [address] * (ABNORMAL) URINALYSIS WITH REFLEX MICROSCOPIC (02/10/2025 1:54 PM CDT) COLOR UA Yellow Pale to Dark Yellow 02/10/2025 2:15 PM CDT [facility] CLARITY UA Clear Clear 02/10/2025 2:15 PM CDT [facility] SPECIFIC GRAVITY UA 1.015 1.003 - 1.035 02/10/2025 2:15 PM CDT [facility] PH UA 7.0 5.0 - 8.0 02/10/2025 2:15 PM CDT [facility] LEUKOCYTE ESTERASE UA Negative Negative 02/10/2025 2:15 PM CDT [facility] NITRITE UA Negative Negative 02/10/2025 2:15 PM CDT [facility] PROTEIN UA 2+(A) Negative 02/10/2025 2:15 PM CDT [facility] GLUCOSE UA Negative Negative 02/10/2025 2:15 PM CDT [facility] KETONES UA Negative Negative 02/10/2025 2:15 PM CDT [facility] UROBILINOGEN UA 0.2 <2.0 mg/dL 2:15 PM CDT [facility] BILIRUBIN UA Negative Negative 02/10/2025 2:15 PM CDT [facility] BLOOD UA Trace(A) Negative 02/10/2025 2:15 PM CDT [facility] Urine URINE SPECIMEN OBTAINED BY CLEAN CATCH PROCEDURE / Unknown Collection / Unknown 02/10/2025 1:54 PM CDT 02/10/2025 1:58 PM CDT us Tony De Paz MD URINE ORDERABLES Final [id number] [address] [place] [address] * CT HEAD WO CONTRAST (02/10/2025 9:57 [...] 4.2 - 9.1 K/uL 02/10/2025 9:42 AM [facility] RBC 5.17 4.63 - 6.08 M/uL 02/10/2025 9:42 AM [facility] HEMOGLOBIN 15.2 13.7 - 17.5 g/dL 02/10/2025 9:42 AM [facility] HEMATOCRIT 41.9 40.1 - 51.0 % 02/10/2025 9:42 AM [facility] MCV 81.0 79.0 - 92.2 fL 02/10/2025 9:42 AM [facility] MCH 29.4 25.7 - 32.2 pg 02/10/2025 9:42 AM [facility] MCHC 36.3 32.3 - 36.5 g/dL 02/10/2025 9:42 AM [facility] RDW 13.6 11.0 - 14.5 % 02/10/2025 9:42 AM [facility] RDW-STDEV 39.4 36.9 - 56.9 fL 02/10/2025 9:42 AM [facility] PLATELETS 183 130 - 400 K/uL 02/10/2025 9:42 AM [facility] MPV 10.8 10.0 - 14.8 fL 02/10/2025 9:42 AM [facility] NEUTROPHILS 67 34 - 68 % 02/10/2025 9:42 AM [facility] LYMPHOCYTES 15(L) 22 - 53 % 02/10/2025 9:42 AM [facility] MONOCYTES 13(H) 5 - 12 % 02/10/2025 9:42 AM [facility] EOSINOPHILS 4 1 - 7 % 02/10/2025 9:42 AM [facility] BASOPHILS 1 0 - 1 % 02/10/2025 9:42 AM [facility] IMMATURE GRANULOCYTES 0 % 02/10/2025 9:42 AM [facility] NEUTROPHIL ABSOLUTE 7.02(H) 1.78 - 5.38 K/uL 02/10/2025 9:42 AM [facility] LYMPHOCYTE ABSOLUTE 1.60 1.20 - 3.40 K/uL 02/10/2025 9:42 AM [facility] MONOCYTE ABSOLUTE 1.32(H) 0.30 - 0.82 K/uL 02/10/2025 9:42 AM [facility] EOSINOPHIL ABSOLUTE 0.43 0.04 - 0.54 K/uL 02/10/2025 9:42 AM [facility] BASOPHILS ABSOLUTE 0.08 0.01 - 0.08 K/uL 02/10/2025 9:42 AM [facility] IMMATURE GRANULOCYTES ABSOLUTE 0.04 K/uL 02/10/2025 9:42 AM [facility] Blood BLOOD SPECIMEN / Unknown Collection / Unknown 02/10/2025 9:34 AM CDT 02/10/2025 9:39 AM CDT Tony De Paz MD HEMATOLOGY ORDERABLES Jaylene l Result Performing Organization Address [facility]/ZIP Co de Phone Number [facility] CLIA # [id number] [address] [place] [address] * MAGNESIUM LEVEL (02/10/2025 9:34 AM CDT) Pathologist [facility] MAGNESIUM 2.2 1.6 - 2.6 mg/dL 02/10/2025 10:20 AM CDT [facility] Blood BLOOD SPECIMEN / Unknown Collection / Unknown 02/10/2025 9:34 AM CDT 02/10/2025 9:39 AM CDT Tony De Paz MD CHEMISTRY ORDERABLES Final Result Performing Organization Address [facility] de Phone Number [facility] CLIA # [id number] [address] [place] [address] * (ABNORMAL) COMPREHENSIVE METABOLIC PANEL (02/10/2025 9:34 AM CDT) Only the most recent of3 resultswithin the time period is included. SODIUM 135(L) 136 - 145 mmol/L 02/10/2025 9:59 AM T [facility] POTASSIUM 3.2(L) 3.5 - 5.1 mmol/L 02/10/2025 9:59 AM T [facility] CHLORIDE 109(H) 98 - 107 mmol/L 02/10/2025 9:59 AM T [facility] CO2 14(L) 22 - 29 mmol/L 02/10/2025 9:59 AM T [facility] CALCIUM 9.9 8.6 - 10.0 mg/dL 02/10/2025 9:59 AM T [facility] BUN 36(H) 6 - 20 mg/dL 02/10/2025 9:59 AM T [facility] CREATININE 3.30(H) 0.67 - 1.17 mg/dL 02/10/2025 9:59 AM [facility] GLUCOSE 107(H) 74 - 99 mg/dL 02/10/2025 9:59 AM [facility] TOTAL PROTEIN 8.3 6.6 - 8.7 g/dL 02/10/2025 9:59 AM [facility] ALBUMIN 4.5 3.5 - 5.2 g/dL 02/10/2025 9:59 AM [facility] BILIRUBIN TOTAL 0.6 0.0 - 1.2 mg/dL 02/10/2025 9:59 AM [facility] ALKALINE PHOSPHATASE 101 40 - 129 U/L 02/10/2025 9:59 AM [facility] AST 23 0 - 50 U/L 02/10/2025 9:59 AM [facility] ALT 39 0 - 50 U/L 02/10/2025 9:59 AM [facility] GFR 21(L) >=60 mL/min/1.7 3 sq meter 02/10/2025 9:59 AM [facility] Comment:eGFR calculated with 2020 CKD-EPI equation. Vegetarian diet, extremely high or low muscle mass, and may affect results. Cystatin C with Glomerular Filtration Rate is a suitable alternative for these patients. ANION GAP 12 5 - 20 mmol/L 02/10/2025 9:59 AM [facility] Blood BLOOD SPECIMEN / Unknown Collection / Unknown 02/10/2025 9:34 AM CDT 02/10/2025 9:39 AM CDT us Tony De Paz MD CHEMISTRY ORDERABLES Final Result [facility] CLIA # [id number] [address] [place] [phone] * US RENAL AND BLADDER (01/29/2025 12:20 [...] may reflect medical renal disease. No hydronephrosis. Nicole Joey [facility] US ORDERABLES Final Result * CT ABDOMEN PELVIS WO CONTRAST (03/16/2022 9:30 PM WASTE WATER PLANT OPERATOR) Anatomical Region Laterality Modality Abdomen Computed Tomogra phy 03/16/2022 9:55 PM WASTE WATER PLANT OPERATOR Addenda Addendum by Vamshi Bonner MD on 03/22/2022 11:24 AM WASTE WATER PLANT OPERATOR ADDENDUM: PowerScribe dictation error. Impression #4 should [...] Small hiatal hernia. Impressions 03/16/2022 10:40 PM WASTE WATER PLANT OPERATOR IMPRESSION: 1. Left nephrolithiasis. A 15 x [...] Small hiatal hernia. Narrative 03/16/2022 10:40 PM WASTE WATER PLANT OPERATOR EXAM: CT ABDOMEN PELVIS WO CONTRAST DIAGNOSIS/REASON [...] Cholelithiasis. 7. Small hiatal hernia. us Juan Ldbetty Espinosa DO CT ORDERABLES Edited Re sult - Final from Last 3 Months or Most Recently Relevant to Health Maintenance Insurance [employer] [id number] Advance Directives For more information, please contact: [phone] * Full Code (Latest Code Status on File) Date Activated Date Inactivated Comments 08/27/2024 8:56 AM 08/27/2024 8:47 PM * Full Code Date Activated Date Inactivated Comments 07/01/2024 11:07 AM 07/01/2024 4:06 PM * Full Code Date Activated Date Inactivated Comments 04/01/2022 7:45 AM 04/01/2022 3:11 PM
--- OUTSIDE RECORDS SUMMARY | 2025-02-20 12:30 | XMS_ITS | Encounter Summary ---
Author Organization [employer] Address [address] [place] [address] Care Team Providers Care Evaluator Transfer Students Name Role Phone Unavailable Primary Care Provider Unavailabl e Encounter Details Date Type Department Care Team (Late st Contact Info) Description 02/17/2025 External Device Data STL ABSTRACTION [...] worry about transportation for future doctor visits, machine operator picker medication, etc.? No 2024 Housing Stability [...] PM CDT Legal Sex Male 1:54 AM MICROSOFT DYNAMICS CONSULTANT Gender Identity Not on file Sexual Orientation Not on file documented as of this encounter Plan of Treatment Upcoming Encounters Date Type Department Care Team (Late st Contact Info) Description 04/07/2025 2:30 PM MICROSOFT DYNAMICS CONSULTANT Office Visit [facility] Urology [address] [place] [address] Aurora Solis [address] [phone] 06/24/2025 8:00 AM CDT Office Visit [facility] Family Medicine [place] [address] [place] [address] [place] [phone] Nicole Cook FNP [address] [place] [address] documented as of this encounter Visit Diagnoses Not on filedocumented in this encounter
--- OUTSIDE RECORDS SUMMARY | 2025-02-20 12:30 | XMS_ITS ---
Author Organization [facility] Address [address] Reina: Epic Prelude ADT ROSALIA AMAYA KLARISSA [phone] Care Team Providers Care Dry Press Operator Name Role Phone Unavailable Primary Care [...]
--- OUTSIDE RECORDS SUMMARY | 2025-02-20 12:30 | XMS_ITS | Encounter Summary ---
Author Organization [email or web address] Address [address] [place] [address] Care Team Providers Care Dispensary Clerk Name Role Phone Unavailable Primary Care [...] worry about transportation for future doctor visits, olive picker medication, etc.? No 2024 Housing Stability [...] PM CDT Legal Sex Male 1:54 AM SPOUT LINER Gender Identity Not on file Sexual Orientation Not on file documented as of this encounter Plan of Treatment Upcoming Encounters Date Type Department Care Team (Late st Contact Info) Description 04/07/2025 2:30 PM SPOUT LINER Office Visit [facility] Urology [address] [place] [address] Aurora Solis [address] [phone] 06/24/2025 8:00 AM CDT Office Visit [facility] Family Medicine [place] [address] [place] [address] [place] [phone] Nicole Cook FNP [address] [place] [address] documented as of this encounter Visit Diagnoses Not on filedocumented in this encounter
--- OUTSIDE RECORDS SUMMARY | 2025-02-20 12:30 | XMS_ITS | Clinical Summary ---
Author Organization [facility] Address 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
[2025-02-20 13:12] LABS: Hematocrit 39.9 % (37-53); Hemoglobin 13.60 g/dL (11.27-16.99); Mean Corpuscular HGB Conc 34.1 g/dL (30-55); Mean Corpuscular Hemoglobin 28.4 pg (27-33); Mean Corpuscular Volume 83.3 fl (82-101); Nucleated Red Blood Cells % 0 %; Platelet Count 221 10^3/cmm (157-399); Red Blood Count 4.79 10^6/uL (3.85-5.65); White Blood Count 6.70 10^3/uL (3.29-11.43)
[2025-02-20 13:32] LABS: Alanine Aminotransferase 21 U/L (0-41); Albumin Level 4.1 g/dL (3.5-5.2); Alkaline Phosphatase 75 U/L (40-130); Anion Gap 17.3 (5-19); Aspartate Amino Transferase 25 U/L (0-40); Blood Urea Nitrogen 25 mg/dL (6-20); Calcium 10.2 mg/dL (8.5-10.5); Carbon Dioxide 18 mmol/L (22-29); Chloride 101 mmol/L (98-107); Creatinine Clr Calc Pharmacy 27.3920; Globulin 3.6 g/dL (1.3-4.6); Glucose 119 mg/dL (65-115); Osmolality Calculated 282 mOsm/kg (285-295); Potassium 3.3 mmol/L (3.5-5.1); Sodium 133 mmol/L (136-145); Total Protein 7.7 g/dL (6.6-8.7)
--- NOTE | 2025-02-20 13:56 | ED_ITS ---
HPI - Recheck/Abnormal Lab/Rx 2 General: Chief Complaint: Recheck/Abnormal Lab/Rx Stated Complaint: abnormal labs Time Seen by Provider: 02/20/25 13:36 Source: patient and family Mode of arrival: wheelchair Limitations: no limitations History of Present Illness: Patient is a 54-year-old male with history of renal cell carcinoma status post left nephrectomy now receiving pembrolizumab every 6 weeks as adjuvant therapy here after he was called regarding concerning kidney functions. Patient was admitted to the hospital last week for ELAINE. They thought this could be secondary to his Keytruda. Creatinine at time of discharge was 2.6. He has since followed up with oncology. He does have an upcoming appointment with nephrology scheduled at [facility] with Dr. Tejada on SundayFebruary 24. They had labs performed through oncology yesterday and was told to come to ED as his creatinine was back up to 3.9 and his GFR had significantly declined. Patient is complaining of generalized malaise and dizziness upon standing. No known fevers. No altered mental status. MD complaint: abnormal lab Returns today for: called because of abnormal lab/test Associated symptoms: none Related Data Home Medications ?Medication ?Instructions ?Recorded ?Confirmed omeprazole 40 mg capsule,delayed 40 mg PO DAILY 02/20/25 release acetaminophen 500 mg tablet 500 mg PO QID PRN Fever Or Pain 02/12/25 02/20/25 (Tylenol Extra Strength) sennosides 8.6 mg tablet (Senokot) 8.6 mg PO DAILY PRN Constipation 02/12/25 02/20/25 Previous Rx's ?Medication ?Instructions ?Recorded prochlorperazine maleate 10 mg 10 mg PO Q6H PRN nausea and 01/16/25 tablet (Compazine) vomiting #30 tabs ondansetron 4 mg disintegrating 4 mg PO Q8H PRN nausea and 02/17/25 tablet vomiting 5 days #20 tabs potassium chloride 10 mEq 10 meq PO BID 30 days #60 ca ps 02/17/25 capsule,extended release scopolamine base 1 mg over 3 days 1 patch transdermal Q3D PRN nausea 02/17/25 transdermal patch and vomiting 30 days #10 ea Allergies Allergy/AdvReac Type Severity Reaction Status Date / Time No Known Allergies Allergy Verified 11/06/25 10:34 Review of Systems 2 Const: Reports: fatigue and malaise; Denies: fever(s), chills or body aches Eyes: Denies: change in vision, blurry vision, photophobia, floaters or seeing flashes Card: Denies: chest pain or palpitations Resp: Denies: dyspnea GI: Reports: nausea; Denies: abdominal pain : Reports: other (dark urine) Musc: Denies: back pain Skin/Breast: Denies: rash Neuro: Reports: dizziness (mainly upon standing); Denies: headache(s) PFSH ED 2 PFSH: Medical History Renal cell carcinoma of left kidney No pertinent past medical history Surgical History History of left radical nephrectomy Social History Smoking and tobacco/nicotine status: never used tobacco/nicotine Alcohol intake: never Substance/Drug Use: never Physical Exam 2 Const: COMMON NORMALS: average body habitus, no limitations, healthy appearing and alert GENERAL APPEARANCE: cooperative and ill appearing O RIENTATION/CONSCIOUSNESS: Yes awake, Yes oriented to person, Yes oriented to place and Yes oriented to time Resp: COMMON NORMALS: normal respiratory effort and clear to auscultation bilaterally AUSCULTATION: clear to auscultation bilaterally Cardio: COMMON NORMALS: regular rate and regular rhythm RATE: regular rate RHYTHM: regular rhythm : COMMON NORMALS: Yes no CVA tenderness BLADDER/KIDNEY EXAM: Yes no CVA tenderness Back/Pelvis: COMMON NORMALS: no CVA tenderness Extremity: GENERAL: Yes normal exam except as noted Neuro: COMMON NORMALS: moves all extremities, no focal motor deficits and no sensory deficits noted SENSORIUM/ORIENTATION: Yes alert, Yes oriented to person, Yes oriented to place and Yes oriented to time Course 2 Consultations: Consultation #1: Dr. Campbell-feels patient needs transferred for inpatient nephrology and kidney biopsy Consultation #2: RO[facility] hospitalist-accepts patient on behalf of Dr. Muro Vital Signs: Vital signs: Vital Signs Temperature 98.3 F 02/20/25 12:39 Pulse Rate 70 02/20/25 15:01 Respiratory Rate 16 02/20/25 12:39 Blood Pressure 113/72 02/20/25 15:01 Pulse Oximetry 98 02/20/25 15:01 Oxygen Delivery Me thod Room Air 02/20/25 15:01 MDM - Recheck/Abnormal Lab/Rx Medical Decision Making Patient is a nice 54-year-old male with a history of renal cell carcinoma status post left nephrectomy here due to progressive worsening kidney functions. He was just admitted here and discharged on Sunday. Creatinine at time of discharge was 2.6 with GFR around 25. Creatinine now is up to 4.1 and GFR down to 15. Spoke to hospitalist who discharged him a few days ago who recommended patient be transferred to facility with inpatient nephrology. Thought patient may require kidney biospy. [facility] Discussed with Dr. Nance who agrees and is aware of transfer. Medical Records I reviewed the patient's medical records. Lab Data I reviewed the patient's lab results. 02/20/25 13:05 02/20/25 13:05 Laboratory Results WBC 6.70 10^3/uL (3.29-11.43) 02/20/25 13:05 RBC 4.79 10^6/uL (3.85-5.65) 02/20/25 13:05 Hgb 13.60 g/dL (11.27-16.99) 02/20/25 13:05 Hct 39.9 % (37-53) 02/20/25 13:05 MCV 83.3 fl (82-101) 02/20/25 13:05 MCH 28.4 pg (27-33) 02/20/25 13:05 MCHC 34.1 g/dL (30-55) 02/20/25 13:05 RDW 13.4 % (12.1-15.1) 02/20/25 13:05 Plt Count 221 10^3/cmm (157-399) 02/20/25 13:05 MPV 10.7 fL (7.4-10.4) H 02/20/25 13:05 Neut % (Auto) 58.3 % 02/20/25 13:05 Lymph % (Auto) 19.7 % 02/20/25 13:05 [place] % (Auto) 15.2 % 02/20/25 13:05 Eos % (Auto) 5.5 % 02/20/25 13:05 Baso % (Auto) 1.0 % 02/20/25 13:05 Neut # (Auto) 3.90 10^3/uL (1.8-7.7) 02/20/25 13:05 Lymph # (Auto) 1.3 10^3/uL (0.8-4.8) 02/20/25 13:05 [place] # (Auto) 1.0 10^3/uL (0.2-0.9) H 02/20/25 13:05 Eos # (Auto) 0.4 10^3/uL (0.0-0.8) 02/20/25 13:05 Baso # (Auto) 0.1 10^3/uL (0.0-0.1) 02/20/25 13:05 Nucleated RBC % (auto) 0 % 02/20/25 13:05 Nucleated RBCs # 0.0 /100WBC 02/20/25 13:05 Sodium 133 mmol/L (136-145) L 02/20/25 13:05 Potassium 3.3 mmol/L (3.5-5.1) L 02/20/25 13:05 Chloride 101 mmol/L (98-107) 02/20/25 13:05 Carbon Dioxide 18 mmol/L (22-29) L 02/20/25 13:05 Anion Gap 17.3 (5-19) 02/20/25 13:05 BUN 25 mg/dL (6-20) H 02/20/25 13:05 Creatinine 4.1 mg/dL (0.7-1.2) H 02/20/25 13:05 GFR Calculation 15.3 mL/min (90-130) L 02/20/25 13:05 Glucose 119 mg/dL (65-115) H 02/20/25 13:05 Calculated Osmolality 282 mOsm/kg (285-295) L 02/20/25 13:05 Calcium 10.2 mg/dL (8.5-10.5) 02/20/25 13:05 Phosphorus 3.6 mg/dL (2.5-4.5) 02/20/25 13:05 Magnesium 2.3 mg/dL (1.7-2.3) 02/20/25 13:05 Total Bilirubin 0.5 mg/dL (0.15-1.2) 02/20/25 13:05 AST 25 U/L (0-40) 02/20/25 13:05 ALT 21 U/L (0-41) 02/20/25 13:05 Alkaline Phosphatase 75 U/L (40-130) 02/20/25 13:05 Total Protein 7.7 g/dL (6.6-8.7) 02/20/25 13:05 Albumin 4.1 g/dL (3.5-5.2) 02/20/25 13:05 Globulin 3.6 g/dL (1.3-4.6) 02/20/25 13:05 Urine Color Yellow (Yellow) 02/20/25 15:14 Urine Appearance Clear (CLEAR) 02/20/25 15:14 Urine pH 7.0 (5-7) 02/20/25 15:14 Ur Specific Philipp 1.012 (1.005-1.030) 02/20/25 15:14 Urine Protein 2+ (Negative) A 02/20/25 15:14 Urine Glucose (UA) Negative (Normal) 02/20/25 15:14 Urine Ketones Trace (Negative) 02/20/25 15:14 Urine Blood Negative (Negative) 02/20/25 15:14 Urine Nitrate Negative (Negative) 02/20/25 15:14 Urine Bilirubin Negative (Negative) 02/20/25 15:14 Urine Urobilinogen 1.0 mg/dL (Negative) 02/20/25 15:14 Ur Leukocyte Esterase Negative (Negative) 02/20/25 15:14 Urine RBC 0-2 /hpf (0-2) 02/20/25 15:14 Urine WBC 0-5 /hpf (0-5) 02/20/25 15:14 Ur Squamous Epith Cells 0-5 /hpf (0-5) 02/20/25 15:14 Urine Bacteria None seen /hpf (NONE) 02/20/25 15:14 Hyaline Casts 0.81 /lpf 02/20/25 15:14 No radiology studies performed this visit Discharge Plan Discharge Patient Disposition: Xfer Short-Term Hosp Clinical Impression: Renal cell carcinoma of left kidney, History of left radical nephrectomy, ELAINE (acute kidney injury) Condition: Stable Referrals: Nicole Cook FNP [Primary Care Provider, Family Practice] Print Language: Lebanese Coding Level of Care Code ED Coil Wrapper for Brent Mendez
[2025-02-20 15:19] LABS: Glucose Urine UA Negative (Normal); Nitrate Urine Negative (Negative); Specific Gravity, Urine 1.012 (1.005-1.030)
[2025-02-20 15:20] LABS: Magnesium 2.3 mg/dL (1.7-2.3)
[2025-02-20 15:21] LABS: Add Urine Microscopic? YES
[2025-02-20] MEDS: ondansetron 2 mg/ML SDV 2 mL 4 MG IVP (19:52)
[2025-02-21] VITALS: BP 103/64; PULSE 74; RESP 16; O2SAT 95
== END 2025-02-21 | disposition short-term general hospital (02) ==
PROVIDERS: Emergency Provider Physician Assistant; PCP Nurse Practitioner Family
DX: C64.2 Malignant neoplasm of left kidney, except renal pelvis (principal); N17.9 Acute kidney failure, unspecified; Z90.5 Acquired absence of kidney
CPT/HCPCS: 36415; 80053; 81001; 83735; 84100; 85025; 96361; 96374; 99284; J2405; J7040

== ENCOUNTER 2025-03-19 12:01 | Oncology outpatient (recurring) (ONCR) | payer OTHER, SELFPAY ==
[2025-03-19 12:28] LABS: Hematocrit 37.9 % (37-53); Hemoglobin 12.60 g/dL (11.27-16.99); Mean Corpuscular HGB Conc 33.2 g/dL (30-55); Mean Corpuscular Hemoglobin 28.4 pg (27-33); Mean Corpuscular Volume 85.6 fl (82-101); Nucleated Red Blood Cells % 0 %; Platelet Count 185 10^3/cmm (157-399); Red Blood Count 4.43 10^6/uL (3.85-5.65); White Blood Count 7.01 10^3/uL (3.29-11.43)
[2025-03-19 12:49] LABS: Alanine Aminotransferase 24 U/L (0-41); Albumin Level 4.1 g/dL (3.5-5.2); Alkaline Phosphatase 63 U/L (40-130); Anion Gap 15.9 (5-19); Aspartate Amino Transferase 19 U/L (0-40); Blood Urea Nitrogen 22 mg/dL (6-20); Calcium 10.1 mg/dL (8.5-10.5); Carbon Dioxide 22 mmol/L (22-29); Chloride 103 mmol/L (98-107); Globulin 3.4 g/dL (1.3-4.6); Glucose 99 mg/dL (65-115); Osmolality Calculated 285 mOsm/kg (285-295); Potassium 4.9 mmol/L (3.5-5.1); Sodium 136 mmol/L (136-145); Total Protein 7.5 g/dL (6.6-8.7)
== END 2025-04-15 23:59 | disposition home or self-care (01) ==
PROVIDERS: Internal Medicine; PCP Nurse Practitioner Family; Visit Provider Internal Medicine
DX: C64.2 Malignant neoplasm of left kidney, except renal pelvis (principal)
CPT/HCPCS: 36415; 80053; 83615; 85025